=== PATIENT | male | born 1935 | race African-American/Black ===

== ENCOUNTER 2017-11-19 13:51 | Inpatient (IN) | payer MEDICARE ==
[~2017-11-19] VITALS: Ht 182.9 cm; Wt 72.6 kg
--- NOTE | 2017-11-19 13:49 | Emergency Room Report ---
History of Present Illness General Source: Patient, EMS, Caregiver Present Illness HPI Paramedics were called for supposedly back pain and weakness. When they evaluated him they noticed he had a hematoma on his right leg. When they tried to move him he had excruciating pain in his right hip and right leg area. The patient and family are unable to state what happened - only that he was ambulatory prior to being discharged from rehab facility yesterday. He required assistance to get into bed last night and has been unable to ambulate today. When asked, he says the pain is average, 3-4/10. Tenderness hip and upper leg. Not radiating. Patient has a history of hypertension and dementia. Denies CP, SOP, MORSE, NVD, dysuria. Not on blood thinners. No head trauma. 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 Reviewed Nursing Documentation: PMH: Agreed, PSxH: Agreed Review of Systems All Other Systems: negative except mentioned in HPI - however, demential makes answers questionable Physical Exam Vital Signs Date Time Temp Pulse Resp B/P (MAP) Pulse Ox O2 Delivery O2 Flow Rate FiO2 11/19/17 13:45 98.8 93 18 185/78 98 Room Air Sp02 EP Interpretation: reviewed, normal General Appearance: well appearing, no apparent distress, alert Head: normocephalic Eyes: bilateral eye normal inspection, bilateral eye PERRL ENT: moist mucus membranes Neck: supple Respiratory: chest non-tender, lungs clear, normal breath sounds Cardiovascular #1: regular rate, rhythm Cardiovascular #2: 2+ radial (R) Gastrointestinal: normal inspection, normal bowel sounds, non tender, no mass, non-distended, scaphoid Musculoskeletal: pelvis stable, tender - R hip with PROM Neurologic: alert, motor strength/tone normal, DTRs symmetric, sensory intact, speech normal, oriented - X1 Psychiatric: other - poor recent memory Skin: hematoma - R thigh Medical Decision Making Diagnostic Impression: Primary Impression: Closed right hip fracture Qualified Codes: S72.001A - Fracture of unspecified part of neck of right femur, initial encounter for closed fracture Additional Impressions: Protein calorie malnutrition Qualified Codes: E44.0 - Moderate protein-calorie malnutrition Dementia Qualified Codes: G30.9 - Alzheimer's disease, unspecified; F02.80 - Dementia in other diseases classified elsewhere without behavioral disturbance ER Course Patient presents with right leg pain. Differential includes contusion, hematoma , hip fracture, pelvic fracture amongst others. Evaluation will be with x-rays and labs. The patient will be treated with Toradol. Some difficulty as unable to get full history from patient. EKG no injury, R hip with fx. Labs with min elevated glucose. Improved pain with analgesia (0/10). Admit med Dr. Burger. He requested Dr. Young and he was contacted. Laboratory Tests Test 11/19/17 16:00 White Blood Count 7.1 K/UL (4.8-10.8) Red Blood Count 4.05 M/UL (4.70-6.10) L Hemoglobin 12.0 G/DL (14.2-18.0) L Hematocrit 38.1 % (42.0-52.0) L Mean Corpuscular Volume 94 FL (80-99) Mean Corpuscular Hemoglobin 29.5 PG (27.0-31.0) Mean Corpuscular Hemoglobin Concent 31.4 G/DL (32.0-36.0) L Red Cell Distribution Width 12.5 % (11.6-14.8) Platelet Count 320 K/UL (150-450) Mean Platelet Volume 4.9 FL (6.5-10.1) L Neutrophils (%) (Auto) 73.2 % (45.0-75.0) Lymphocytes (%) (Auto) 13.6 % (20.0-45.0) L Monocytes (%) (Auto) 10.5 % (1.0-10.0) H Eosinophils (%) (Auto) 1.7 % (0.0-3.0) Basophils (%) (Auto) 1.0 % (0.0-2.0) Prothrombin Time 10.8 SEC (9.30-11.50) Prothrombin Time INR 1.0 (0.9-1.1) PTT 30 SEC (23-33) Sodium Level 135 MMOL/L (136-145) L Potassium Level 4.6 MMOL/L (3.5-5.1) Chloride Level 101 MMOL/L (98-107) Carbon Dioxide Level 26 MMOL/L (21-32) Anion Gap 8 mmol/L (5-15) Blood Urea Nitrogen 18 mg/dL (7-18) Creatinine 1.0 MG/DL (0.55-1.30) Estimate Glomerular Filtration Rate mL/min (>60) Glucose Level 136 MG/DL (74-106) H Calcium Level 9.2 MG/DL (8.5-10.1) Total Bilirubin 0.4 MG/DL (0.2-1.0) Aspartate Amino Transferase (AST) 26 U/L (15-37) Alanine Aminotransferase (ALT) 37 U/L (12-78) Alkaline Phosphatase 107 U/L (46-116) Total Protein 7.4 G/DL (6.4-8.2) Albumin 2.4 G/DL (3.4-5.0) L Globulin 5.0 g/dL Albumin/Globulin Ratio 0.5 (1.0-2.7) L EKG Diagnostic Results Rate: normal Rhythm: NSR ST Segments: no acute changes Rhythm Strip Diag. Results EP Interpretation: yes Rhythm: NSR, no PVC's, no ectopy Chest X-Ray Diagnostic Results Chest X-Ray Diagnostic Results : Chest X-Ray Ordered: Yes # of Views/Limited/Complete: 1 View Indication: Other EP Interpretation: Yes Interpretation: no consolidation, no effusion, no pneumothorax, no acute cardiopulmonary disease Impression: No acute disease Electronically Signed by: Tomasz Christian MD Other X-Ray Diagnostic Results Other X-Ray Diagnostic Results #1: X-Ray ordered: pelvis # of Views/Limited Vs Complete: 1 View Indication: Pain EP Interpretation: Yes Interpretation: no soft tissue swelling, other - surg neck fx, ostoporosis Impression: Other Electronically Signed by: Ciara Christian MD Other X-Ray Diagnostic Results #2: X-Ray ordered: R femur # of Views/Limited Vs Complete: 4 View Indication: Pain EP Interpretation: Yes Interpretation: no dislocation, no soft tissue swelling, other - fx surgical neck - djd, Ca vessels Impression: Other Electronically Signed by: Tomasz Christian MD Last Vital Signs Date Time Temp Pulse Resp B/P (MAP) Pulse Ox O2 Delivery O2 Flow Rate FiO2 11/20/17 03:14 97.9 62 20 126/72 99 Room Air Status: improved Disposition: ADMITTED INPATIENT Condition: Serious Tomasz Christian M.D. Nov 19, 2017 13:49
[~2017-11-19 13:51] MED LIST: AMIODARONE HCL400 M1 ORAL; AMLODIPINE BES2.5 MG PO; ARICEPT5 MG PO; ASPIRIN81 M1 PO; ATORVASTATIN CA20 MG ORAL; CEPHALEXIN500 MG ORAL; CORDARONE200 M1 ORAL; COUMADIN2.5 MG ORAL; COUMADIN6 MG ORAL; COZAAR50 MG PO; DONEPEZIL HCL10 MG ORAL; FINASTERIDE5 MG PO; FLOMAX0.4 MG ORAL; FLOMAX0.4 MG PO; Ketorolac 30mg Inj IV ONE; LOSARTAN POTAS100 MG; LOSARTAN POTASS25 MG ORAL; METOPROLOL SUCC25 MG ORAL; METOPROLOL TART25 MG ORAL; METOPROLOL TART50 M1; METOPROLOL TART50 M1 ORAL; METOPROLOL TART50 MG ORAL; METOPROLOL TART50 MG PO; METOPROLOL5 MG/5 M1 IV; MIDODRINE HCL5 MG ORAL; NORVASC2.5 MG ORAL; PRO-AMATINE10 MG ORAL; PRO-AMATINE2.5 MG ORAL; PROSCAR5 MG ORAL; PROTONIX20 MG PO; QUETIAPINE FUMA25 MG PO; SIMVASTATIN20 MG; SIMVASTATIN20 MG PO; SIMVASTATIN5 MG ORAL; TAMSULOSIN HCL0.4 MG; TENORMIN25 MG PO; UNOBMED; WARFARIN SODIUM2 MG PO; WARFARIN SODIUM5 MG ORAL; ZOCOR20 M1 ORAL
--- NOTE | 2017-11-19 15:15 | Diagnostic Imaging Report ---
Indication: Dyspnea Comparison: 01/30/2017 A single view chest radiograph was obtained. Findings: Lungs are clear. There is a pacemaker on the left. Bones are osteopenic. Aorta is calcified and ectatic. IMPRESSION: No acute disease
--- NOTE | 2017-11-19 15:18 | Diagnostic Imaging Report ---
Indication: Pain Findings: 2 views of the right femur, right hip and AP pelvis were obtained. There is an acute slightly impacted fracture of the right femoral neck with superior displacement. Remainder of the right femur is intact. The bones are severely osteopenic. Single view of the left hip is grossly unremarkable. The sacrum is largely obscured by bowel gas and stool. Vascular calcifications are noted. IMPRESSION: Acute impacted intracapsular fracture of the right hip.
[2017-11-19 16:22] LABS: EOSINOPHILS % (AUTO) 1.7 % (0.0-3.0); HEMATOCRIT 38.1 % (42.0-52.0); LYMPHOCYTES % (AUTO) 13.6 % (20.0-45.0); MEAN CORPUSCULAR VOLUME 94 FL (80-99); MONOCYTES % (AUTO) 10.5 % (1.0-10.0); NEUTROPHILS % (AUTO) 73.2 % (45.0-75.0); PLATELET COUNT 320 K/UL (150-450); RED BLOOD COUNT 4.05 M/UL (4.70-6.10); RED CELL DISTRIBUTION WIDTH 12.5 % (11.6-14.8); WHITE BLOOD COUNT 7.1 K/UL (4.8-10.8)
[2017-11-19 16:37] LABS: ANION GAP 8 mmol/L (5-15); BLOOD UREA NITROGEN 18 mg/dL (7-18); CALCIUM 9.2 MG/DL (8.5-10.1); CARBON DIOXIDE 26 MMOL/L (21-32); CHLORIDE 101 MMOL/L (98-107); POTASSIUM 4.6 MMOL/L (3.5-5.1); SODIUM 135 MMOL/L (136-145)
[2017-11-19 16:42] LABS: ALANINE AMINOTRANSFERASE 37 U/L (12-78); ALBUMIN 2.4 G/DL (3.4-5.0); ALBUMIN/GLOBULIN RATIO 0.5 (1.0-2.7); ALKALINE PHOSPHATASE 107 U/L (46-116); ASPARTATE AMINO TRANSFERASE 26 U/L (15-37); BILIRUBIN,TOTAL 0.4 MG/DL (0.2-1.0)
[2017-11-19 18:40] VITALS: BP 120/66
[2017-11-19] MEDS: D5NS 1,000 ML IV SCH (19:10)
[2017-11-19 19:22] VITALS: BP 115/66
[2017-11-19] MEDS: Metoprolol 25mg tab ORAL SCH (20:48)
[2017-11-19] MEDS: Tamsulosin 0.4mg cap ORAL SCH (20:49)
[2017-11-19] MEDS: Heparin 5000 units/ml inj SUBQ SCH (20:49)
[2017-11-19] MEDS: Midodrine 10mg tab ORAL SCH (21:56)
[2017-11-19 23:16] VITALS: BP 121/64
[2017-11-20 03:14] VITALS: BP 126/72
[2017-11-20] MEDS: Midodrine 10mg tab ORAL SCH ×3 (05:34→22:04)
[2017-11-20 08:00] VITALS: BP 133/71
[2017-11-20] MEDS: D5NS 1,000 ML IV SCH ×2 (08:05→22:05)
--- NOTE | 2017-11-20 08:05 | Consultation ---
Consult Note Consult Note 82 yo pleasantly confused male, poor historian who we are seeing for rt hip femoral neck fracture hx gathered from chart. pt cannot accurately recall events leading to admission. per hx, pt released to care of family yesterday from a stay at a rehab center. While at home with family, he had been complaining of back pain. EMS was called and pt noted to have rt hip femoral neck fracture. per pt, no fall and no complaints of pain. He reports that he ambulates independently at baseline. PE: pt comfortable in bed but does have ecchymosis around rt hip and tenderness to palpation with shortened and rotated rt LE. Xray: Rt hip impacted and displaced femoral neck fracture Assessment/Plan 1. rt hip femoral neck fracture plan for rt hip celso arthroplasty tomorrow am. med clearance 2D echo NPO after midnight, can eat today full note dictated AMEND 12:23pm: Placed a call to pt's next of kin Matti Montanez ([phone]) and Melly Montanez ([phone]) and left messages for both. Gave both parties our office contact info ([phone]) to call back and discuss care. NAHEED DODD Nov 20, 2017 08:04
[2017-11-20] MEDS: Donepezil 10mg tab ORAL SCH (09:00)
[2017-11-20] MEDS: Amiodarone 200mg tab ORAL SCH (10:25)
[2017-11-20] MEDS: Metoprolol 25mg tab ORAL SCH ×2 (10:26→20:12)
[2017-11-20] MEDS: Heparin 5000 units/ml inj SUBQ SCH ×2 (10:38→20:54)
[2017-11-20 12:00] VITALS: BP 135/69
[2017-11-20] MEDS ORDERED: Flu Vaccine Quadrivalent 0.5ml IM ONE (13:00)
[2017-11-20] MEDS ORDERED: Morphine Sulfate 2mg/ml Inj IVP PRN (13:30)
--- NOTE | 2017-11-20 14:48 | Cardiology Report ---
APPROVED REPORT EXAM: Two-dimensional and M-mode echocardiogram with Doppler and color Doppler. INDICATION PRE-OP M-Mode DIMENSIONS Left Atrium (MM)2.6 (1.6-4.0cm) Aortic Cusp Exc.2.0 (1.5-2.0cm) Technically difficult study due to poorl acoustical windows and patient position. M-mode measurements of left ventricle not obtainable due to cardiac position (angle) Normal left ventricular size . Global left ventricular hypokinesis.EF estimated at 45-50%. Study quality precludes accurate assessment of regional wall motion. No evidence of left ventricular hypertrophy. No evidence of pericardial effusion All other cardiac chamber sizes are within normal limits. Focal aortic valve sclerosis with adequate cusp excursion. Thickened mitral valve leaflets with normal excursion. Mitral annulus and aortic root calcification. Pulmonic valve not well visualized. tricuspid valve structure not well visualized . IVC at normal size with physiologic collapse. Pacemaker wire present in the right side chambers. A color flow and spectral Doppler study was performed and revealed: No aortic regurgitation. Trace mitral regurgitation. Mitral diastolic velocities suggest reduced left ventricular relaxation c/w mild LV diastolic dysfunction (Grade I ). Trace tricuspid regurgitation. Tricuspid systolic velocities suggests peak right ventricular systolic pressure of 10 mmHg No Pulmonic regurgitation present
--- NOTE | 2017-11-20 15:16 | Anethesia Preoperative Eval ---
Anesthesia Pre-op PMH/ROS General Date of Evaluation: Nov 20, 2017 Time of Evaluation: 14:52 Anesthesiologist: Yves ASA Score: ASA 4 Mallampati Score Class I : Soft palate, uvula, fauces, pillars visible Class II: Soft palate, uvula, fauces visible Class III: Soft palate, base of uvula visible Class IV: Only hard plate visible Mallampati Classification: Class II Surgeon: Lizet Diagnosis: R Hip Pain Surgical Procedure: R Hip Hemiarthroplasty Anesthesia History: none Family History: no anesthesia problems Allergies: Coded Allergies: No Known Allergies (Unverified , 10/28/14) Medications: see eMAR Past Medical History Cardiovascular: Reports: HTN, CAD, IA, arrhythmia - Pacemaker Gastrointestinal/Genitourinary: Reports: other - Prostate CA Neurologic/Psychiatric: Reports: dementia - Alzheimers Musculoskeletal/Integumentary: Reports: other - Contractures Anesthesia Pre-op Phys. Exam Physician Exam Last Vital Signs Date Time Temp Pulse Resp B/P (MAP) Pulse Ox O2 Delivery O2 Flow Rate FiO2 11/20/17 12:00 97.5 68 20 135/69 99 11/20/17 03:14 Room Air Constitutional: NAD Neurologic: CN 2-12 intact Cardiovascular: RRR Respiratory: CTA Gastrointestinal: S/NT/ND Airway Exam Mallampati Score: Class II MO: limited ROM: limited Teeth: missing Anesthesia Pre-op A/P Labs Hematology Test 11/19/17 16:00 White Blood Count 7.1 K/UL (4.8-10.8) Red Blood Count 4.05 M/UL (4.70-6.10) L Hemoglobin 12.0 G/DL (14.2-18.0) L Hematocrit 38.1 % (42.0-52.0) L Mean Corpuscular Volume 94 FL (80-99) Mean Corpuscular Hemoglobin 29.5 PG (27.0-31.0) Mean Corpuscular Hemoglobin Concent 31.4 G/DL (32.0-36.0) L Red Cell Distribution Width 12.5 % (11.6-14.8) Platelet Count 320 K/UL (150-450) Mean Platelet Volume 4.9 FL (6.5-10.1) L Neutrophils (%) (Auto) 73.2 % (45.0-75.0) Lymphocytes (%) (Auto) 13.6 % (20.0-45.0) L Monocytes (%) (Auto) 10.5 % (1.0-10.0) H Eosinophils (%) (Auto) 1.7 % (0.0-3.0) Basophils (%) (Auto) 1.0 % (0.0-2.0) Coagulation Test 11/19/17 16:00 Prothrombin Time 10.8 SEC (9.30-11.50) Prothromb Time International Ratio 1.0 (0.9-1.1) Activated Partial Thromboplast Time 30 SEC (23-33) Chemistry Test 11/19/17 16:00 Sodium Level 135 MMOL/L (136-145) L Potassium Level 4.6 MMOL/L (3.5-5.1) Chloride Level 101 MMOL/L (98-107) Carbon Dioxide Level 26 MMOL/L (21-32) Anion Gap 8 mmol/L (5-15) Blood Urea Nitrogen 18 mg/dL (7-18) Creatinine 1.0 MG/DL (0.55-1.30) Estimat Glomerular Filtration Rate mL/min (>60) Glucose Level 136 MG/DL (74-106) H Calcium Level 9.2 MG/DL (8.5-10.1) Total Bilirubin 0.4 MG/DL (0.2-1.0) Aspartate Amino Transf (AST/SGOT) 26 U/L (15-37) Alanine Aminotransferase (ALT/SGPT) 37 U/L (12-78) Alkaline Phosphatase 107 U/L (46-116) Total Protein 7.4 G/DL (6.4-8.2) Albumin 2.4 G/DL (3.4-5.0) L Globulin 5.0 g/dL Albumin/Globulin Ratio 0.5 (1.0-2.7) L Risk Assessment & Plan Assessment: ASA 4 Plan: GA, Spinal, Lumbar Plexus Block Status Change Before Surgery: No Pre-Antibiotics Drug: Hemanth Kline MD Nov 20, 2017 15:16
[2017-11-20 15:49] VITALS: BP 132/67
--- NOTE | 2017-11-20 15:49 | Cardiology Report ---
APPROVED REPORT EKG Measurement Heart [id number] CO 124P19 [id number] Sinus rhythm with occasional premature ventricular complexes Nonspecific ST and T wave abnormality Abnormal ECG
--- NOTE | 2017-11-20 17:00 | Consultation ---
DATE OF CONSULTATION: 11/20/2017 ORTHOPEDIC CONSULTATION CONSULTING PHYSICIAN: Benjie Hinds M.D. REASON FOR CONSULTATION: Consult called for concern of right hip fracture. HISTORY: The patient is a pleasantly confused, 82-year-old gentleman who is a poor historian and unable to provide much in the way of an account of the details of his admission. Most of the history is gathered from the patient's chart. Per ER record, emergency services were called to the patient's home when he was home with family complaining of back pain. Apparently yesterday, he had just been discharged from the rehab center, was sent home with family. He had been complaining of back pain, therefore, emergency services were called and he was transferred to [facility] ER. Upon evaluation in the ER, he was noted to have a large hematoma and an area of ecchymosis around the right hip. Therefore, right hip and leg x-rays were obtained noting a right hip femoral neck fracture. Per discussion with the patient, he does not recall the events of yesterday. He adamantly notes that he did not fall and he does not have pain and he is unsure that he is even in the hospital today. He indicates to me that he lives alone at home and ambulates independently at baseline and was not recently in a rehab center, although again he is quite confused with regards to the details. PHYSICAL EXAMINATION: GENERAL: He is very pleasant. He is cooperative with the examination. He is answering questions, although very confused. EXTREMITIES: He does have area of ecchymosis around the right hip with tenderness upon palpation of the right hip, and shortened and rotated right lower extremity. He has reasonably intact pulses and he follows commands and is able to wiggle his toes. DIAGNOSTIC DATA: X-rays are reviewed of the leg, hip, and pelvis. There is a right femoral neck fracture, impacted and slightly displaced. IMPRESSION: Right hip femoral neck fracture. DISCUSSION: I did discuss with the patient my findings that he has a fracture in his right hip, of which he was surprised to hear. I did discuss with him my treatment recommendations and he did seem to verbalize understanding, but certainly surgical consent will have to be obtained from a family member. Recommended procedure is a right hip hemiarthroplasty to be performed tomorrow. The patient will require medical clearance including a 2D echo. Risks of this surgery would include nerve injury, vessel injury, risk of infection, bleeding, risk of fracture, hardware failure, leg length discrepancy, risk of dislocation, painful hardware, and need for revision surgery down the line. The patient will certainly benefit from inpatient rehab, physical therapy following the procedure. We will work on getting this set up and this was communicated to nursing staff. No family is currently at bedside to discuss; however, next of kin information is noted for Melly and Matti Montanez, and we will work to get in contact with them for discussion as well as surgical consent. Benjie Hinds M.D. Freda Avila DR: ELVIA JOB#: [id number] CC: RUBEN
--- NOTE | 2017-11-20 17:15 | History and Physical Report ---
DATE OF ADMISSION: 11/19/2017 CHIEF COMPLAINT: Right hip fracture. HISTORY OF PRESENT ILLNESS: The patient is a pleasant male with a history of dementia, orthostatic hypotension, conduction system disease, status post pacemaker. He was recently hospitalized, at a assisted facility. The patient was discharged from the assisted facility the day prior to admission. Family contacted me on the day of admission here stating that the patient was not doing well and that he was unable to walk or ambulate. I asked them they take him to the emergency room. On evaluation there, an x-ray of the hip showed a right hip fracture. According to the patient and the patient's family, they denied any recent falls. The case was discussed with the [facility] and no reports of any falls there. The patient does have dementia and is a poor historian. The patient denies any chest pain or shortness of breath. PAST MEDICAL HISTORY: As above. PAST SURGICAL HISTORY: Includes a pacemaker. CURRENT MEDICATIONS: Reconciled and reviewed. ALLERGIES: None. FAMILY HISTORY: None. SOCIAL HISTORY: Negative for tobacco, ethanol, or drugs. REVIEW OF SYSTEMS: GENERAL: No fever or chills. HEENT: No headaches or visual changes. CARDIOPULMONARY: No chest pain or shortness of breath. GASTROINTESTINAL: No nausea or vomiting. GENITOURINARY: No urgency or frequency. MUSCULOSKELETAL: No joint pain or swelling. NEUROLOGIC: No evidence of seizures. PHYSICAL EXAMINATION: VITAL SIGNS: Temperature 98, pulse 62, respirations 20, and blood pressure 126/72. GENERAL: The patient is a well-developed male, in no apparent distress. HEART: Regular rate and rhythm. LUNGS: Clear. ABDOMEN: Soft, nontender, and nondistended. EXTREMITIES: Without clubbing or cyanosis. The patient has limited range of motion due to pain in the right hip. LABORATORY DATA: White count 7, hemoglobin 12, hematocrit 38, and platelets of 320,000. Sodium 135, potassium 4.6, creatinine was 1. Coags were normal. Chest x-ray was clear. ASSESSMENT: This is a pleasant male, admitted with a right hip fracture. 1. Right hip fracture, suspect secondary to a fall possibly at home. 2. The patient has a history of orthostatic hypotension. 3. Dementia. 4. Pacemaker. PLAN: Orthopedic consultation for ORIF. Continue current pain regimen. Continue current cardiac regimen. IV hydration. We will keep the patient NPO. Dennis Burger M.D. DR: NOHEMI JOB#: [id number] CC:
[2017-11-20] MEDS: Tamsulosin 0.4mg cap ORAL SCH (20:12)
[2017-11-20 20:16] VITALS: BP 135/73
[2017-11-21] VITALS (16 sets, daily range): BP systolic 93–168; BP diastolic 37–88
[2017-11-21] MEDS ORDERED: cloNIDine 1000mcg/10ml inj ONE (05:58)
[2017-11-21] MEDS ORDERED: Bupivacaine 0.5% Inj 30 ml vial INJ ONE (05:58)
[2017-11-21] MEDS: Midodrine 10mg tab ORAL SCH ×3 (06:00→21:07)
[2017-11-21] MEDS ORDERED: LR 1000ml 1,000 ML IVLG SCH (06:13)
[2017-11-21] MEDS ORDERED: Hydromorphone 0.5mg/0.5ml inj IVP PRN (06:15)
[2017-11-21] MEDS ORDERED: LORazepam Inj 2mg/ml 1ml IV PRN (06:15)
[2017-11-21] MEDS ORDERED: Atropine Inj 1mg/10ml Syr IV PRN ×2 (06:15→06:45)
[2017-11-21] MEDS ORDERED: HYDROcodone/Acetamin 7.5/325 tab ORAL PRN (06:15)
[2017-11-21] MEDS ORDERED: oxyCODONE HCL/Acetaminophen 5/325mg ORAL PRN (06:15)
[2017-11-21] MEDS ORDERED: fentaNYL 100 mcg/2 mL IV PRN (06:15)
[2017-11-21] MEDS ORDERED: DiphenhydrAMINE 50mg/ml Inj IVP PRN (06:15)
[2017-11-21] MEDS ORDERED: Midazolam 2mg/2ml Inj IVP PRN (06:15)
[2017-11-21] MEDS ORDERED: Norco 5mg/325mg tab ORAL PRN (06:15)
[2017-11-21] MEDS ORDERED: Labetalol 5mg/ml 20ml vial IV PRN (06:15)
--- NOTE | 2017-11-21 06:21 | Immediate Post-Op Evaluation ---
Immediate Post-Op Evalulation Immediate Post-Op Evalulation Procedure: R Hip Hemiarthroplasty Date of Evaluation: Nov 21, 2017 Time of Evaluation: 08:50 IV Fluids: 1000 LR Blood Products: 0 Estimated Blood Loss: 25 Urinary Output: 200 Blood Pressure Systolic: 93 Blood Pressure Diastolic: 51 Pulse Rate: 61 Respiratory Rate: 16 O2 Sat by Pulse Oximetry: 100 Temperature (Fahrenheit): 97.7 Pain Score (1-10): 1 Nausea: No Vomiting: No Complications 0 Patient Status: awake, reacts, patent, none Hydration Status: adequate Dru Grams Ancef IV Given Within 1 Hr of Incision: Yes Time Given: 06:56 Hemanth Marinelli MD Nov 21, 2017 06:21
[2017-11-21] MEDS ORDERED: NeoSporin Gu Irrig 1ml Amp IRRIG ONE (06:32)
[2017-11-21] MEDS ORDERED: Bacitracin 50000 Units Vial ONE (06:32)
--- NOTE | 2017-11-21 06:37 | Pre-Procedure Note/Attestation ---
Pre-Procedure Note/Attestation Complete Prior to Procedure Planned Procedure: right Procedure Narrative: rt hip hemiarthroplasty Indications for Procedure Pre-Operative Diagnosis: rt hip femoral neck fracture Attestation I attest that I discussed the nature of the procedure; its benefits; risks and complications; and alternatives (and the risks and benefits of such alternatives ), prior to the procedure, with the patient (or the patient's legal wire rope sales representative). I attest that, if there was a reasonable possibility of needing a blood transfusion, the patient (or the patient's legal wire rope sales representative) was given the [facility] standardized written summary, pursuant to the [employer] [place] Blood Safety Act ([place] Health and Safety Code # 1645, as amended). I attest that I re-evaluated the patient just prior to the surgery and that there has been no change in the patient's H&P, except as documented below: NONE JOBY VASQUEZ Nov 21, 2017 06:37
[2017-11-21] MEDS ORDERED: D5 1/2NS w/KCl 20mEq 1,000 ML IV SCH (06:39)
[2017-11-21] MEDS ORDERED: Milk of Magnesia 30ml Ud ORAL PRN (06:45)
[2017-11-21] MEDS ORDERED: Acetaminophen (Non formulary) 100 ML IV ONE (07:00)
[2017-11-21] MEDS ORDERED: Midazolam 2mg/2ml Inj ONE (08:00)
[2017-11-21] MEDS ORDERED: Tranexamic Acid 1,000 MG in NS 65 ML IV ONE (08:00)
[2017-11-21] MEDS ORDERED: Lidocaine 1% Plain 30 ml INJ ONE (08:00)
[2017-11-21] MEDS ORDERED: Sterile Water Irrig 1000ml IRRIG ONE (08:00)
[2017-11-21] MEDS ORDERED: NS Irrig 1000ml ONE (08:00)
[2017-11-21] MEDS ORDERED: Alfentanil 2ml Inj ONE (08:00)
[2017-11-21] MEDS ORDERED: LR 1000ml ONE (08:00)
[2017-11-21] MEDS ORDERED: NS Irrig 2000ml IRRIG ONE (08:00)
--- NOTE | 2017-11-21 08:36 | Brief Operative Note ---
Immediate Post Operative Note Operative Note Chief Complaint: rt hip pain Pre-op Diagnosis: rt hip femoral neck fracture Procedure: rt hip hemiarthroplasty Post-op Diagnosis: same as pre-op Findings: consistent w/pre-op dx studies Surgeon: md allyssa Technology Education Teacher: larisa dial Anesthesiologist: md ortiz Anesthesia: general Specimen: yes Complications: none Condition: stable Fluids: ns Estimated Blood Loss: minimal Drains: none Implant(s) used?: Yes - NAHEED Lopez Nov 21, 2017 08:36
--- NOTE | 2017-11-21 08:52 | General Progress Note ---
Assessment/Plan Problem List: (1) Orthostatic syncope ICD Codes: I95.1 - Orthostatic syncope SNOMED: 074927726 (2) Closed right hip fracture ICD Codes: S72.001A - Fracture of unspecified part of neck of right femur, initial encounter for closed fracture SNOMED: 456903685 Qualifiers: Qualified Codes: S72.001A - Fracture of unspecified part of neck of right femur, initial encounter for closed fracture (3) Dementia ICD Codes: F03.90 - Unspecified dementia without behavioral disturbance SNOMED: [id number] Qualifiers: Qualified Codes: G30.9 - Alzheimer's disease, unspecified; F02.80 - Dementia in other diseases classified elsewhere without behavioral disturbance Status: stable, progressing Assessment/Plan stable for surgery Subjective ROS Limited/Unobtainable: No Constitutional: Reports: malaise, weakness HEENT: Reports: no symptoms Cardiovascular: Reports: no symptoms Respiratory: Reports: no symptoms Gastrointestinal/Abdominal: Reports: no symptoms Genitourinary: Reports: no symptoms Neurologic/Psychiatric: Reports: pre-existing deficit Endocrine: Reports: no symptoms Hematologic/Lymphatic: Reports: no symptoms Allergies: Coded Allergies: No Known Allergies (Unverified , 10/28/14) All Systems: reviewed and negative except above Subjective scheduled for hemiarthoplasty. no complaints. + pain in hip of moved. no cp/ sob. no palps Objective Last 24 Hour Vital Signs Date Time Temp Pulse Resp B/P (MAP) Pulse Ox O2 Delivery O2 Flow Rate FiO2 11/21/17 08:45 60 14 104/51 100 Simple Mask 6.0 11/21/17 08:39 97.3 60 14 93/47 100 Simple Mask 6.0 11/21/17 08:38 61 16 100 11/21/17 04:09 97.8 66 20 139/69 97 11/21/17 00:05 Room Air 11/21/17 00:04 97.8 62 20 124/61 97 11/20/17 20:16 Room Air 11/20/17 20:16 97.6 68 20 135/73 97 11/20/17 20:12 68 135/73 11/20/17 17:28 73 142/85 11/20/17 15:49 97.6 64 20 132/67 97 11/20/17 12:00 97.5 68 20 135/69 99 11/20/17 10:26 60 133/78 11/20/17 10:25 60 133/78 Intake and Output 11/20/17 11/21/17 19:00 07:00 Intake Total 675 ml 825 ml Balance 675 ml 825 ml Intake Oral 600 ml IV Total 75 ml 825 ml # Voids 4 3 # Bowel Movements 1 Height (Feet): 6 Height (Inches): 0.00 Weight (Pounds): 160 General Appearance: WD/WN, alert Neck: supple Cardiovascular: regular rhythm Respiratory/Chest: lungs clear Abdomen: normal bowel sounds, non tender, soft, no organomegaly Edema: no edema noted Arm (L), no edema noted Arm (R), no edema noted Leg (L), no edema noted Leg (R), no edema noted Pedal (L), no edema noted Pedal (R), no edema noted Generalized YOU ROMO Nov 21, 2017 08:52
[2017-11-21] MEDS: Donepezil 10mg tab ORAL SCH (10:05)
[2017-11-21] MEDS: celeBREX 200mg Cap **SURGERY PATIENTS ONLY ORAL SCH (10:05)
[2017-11-21] MEDS: Amiodarone 200mg tab ORAL SCH (10:05)
[2017-11-21] MEDS: Metoprolol 25mg tab ORAL SCH ×2 (10:05→21:07)
[2017-11-21] MEDS: Docusate 100mg cap ORAL SCH ×3 (10:05→17:03)
[2017-11-21] MEDS: Heparin 5000 units/ml inj SUBQ SCH (10:06)
[2017-11-21] MEDS ORDERED: HYDROmorphone 1mg/ml Carpuject SUBQ PRN (10:30)
--- NOTE | 2017-11-21 11:04 | Diagnostic Imaging Report ---
Indication: Status post total right hip replacement Findings: Single AP view of the pelvis was performed. Right bipolar hemiarthroplasty is now noted. Patient has had recent surgery with soft tissue air and distortion about the right hip noted. Alignment and position on the basis of this single projection is unremarkable. Taylor catheter noted. IMPRESSION: Status post right hip replacement
[2017-11-21] MEDS: D5 1/2NS w/KCl 20mEq 1,000 ML IV SCH ×2 (11:22→22:48)
--- NOTE | 2017-11-21 12:15 | Operative Note - Dictated ---
DATE OF OPERATION: 11/21/2017 PREOPERATIVE DIAGNOSIS: Right hip subcapital femoral neck fracture with displacement. POSTOPERATIVE DIAGNOSIS: Right hip subcapital femoral neck fracture with displacement. PROCEDURE: Right hip hemiarthroplasty using [place] system, size 9 mm Accolade femoral stem with 28-mm 0-mm-offset femoral head with 52-mm bipolar component. SURGEON: Benjie Hinds M.D. REVENUE INTEGRITY ANALYST: Maura Amanda PA-C. ANESTHESIOLOGIST: Hemanth Marinelli M.D. ANESTHESIA: Spinal anesthesia. ESTIMATED BLOOD LOSS: Less than 100 mL. COMPLICATIONS: None. BRIEF HISTORY: The patient is a pleasant 82-year-old gentleman who sustained a fall and had right-sided hip pain. Orthopedic consultation was obtained after x-rays in the ER showed subcapital femoral neck fracture. After full discussion of risks and benefits of the surgery with the next of kin and his son, including infection, bleeding, neurovascular complication, possibility of continued pain, possibility of continued need for further surgery, possibility of dislocation, leg length discrepancy, inability to walk, DVT, PE, and other complications that may arise, the patient and the family opted for surgical treatment and consent was obtained. OPERATIVE PROCEDURE: The patient was brought to the operating table and was placed supine. All pressure points were well padded. Spinal anesthesia was induced. The right hip was prepped and draped in usual sterile fashion. Standard posterolateral approach to the hip was undertaken. The incision was taken through the subcutaneous tissue and the gluteal fascia, and IT band were opened. The retractors were placed and short external rotators were released and capsule was T'd. The fracture could be visualized. At this point, the hip was internally rotated and the femoral head was removed using a threaded Steinmann pin. Once this was completed, the neck appeared to be long and a 5 mm neck cut was performed. This placed the cut approximately 1 cm above the lesser trochanter. Once this was completed, the acetabulum was inspected and there was no significant acetabular wear. There were no significant loose fragments. The acetabulum was washed out using Simpulse irrigation. At this point, care was given to the femoral component. Appropriate retractors were placed in and a canal finder was placed in and sequential broaching was performed all the way up to size 5 broach. This provided excellent axial and rotational stability. Once this was completed, a calcar reamer was used to ream the calcar and at this point, standard neck 28-mm head with a 52-mm bipolar component was assembled and with standard offset and was assembled back onto the broach. The entire construct was reduced and leg lengths were checked and appeared to be equal. Range of motion was checked and he had excellent 0, 30 degrees, 45 degrees, and 90 degrees of flexion with internal rotation up to 75 degrees with 90 degrees of flexion and neutral abduction. There was no evidence of instability or dislocation with internal rotation. At this point, external rotation was checked and appeared to be perfect. There was no evidence of instability. The wounds were thoroughly irrigated using copious amount of fluid. The trial components were then removed and the femur and acetabulum were washed out using Simpulse irrigation. At this point, a size 9-mm proximally coated Accolate stem was placed without any complication. A standard head length and bipolar component were placed in and the entire construct was then malleted back onto a dried Paredes taper. At this point, the entire construct was reduced without any complication. Range of motion and leg lengths were checked and stability was checked as described previously. There was excellent stability as described. At this point, the capsule was repaired back onto the greater trochanter through drill holes. The piriformis was repaired back. The tensor fascia was closed using #1 Vicryl suture, subcutaneous tissue was closed using 2-0 Vicryl suture, and the skin was closed using 3-0 Monocryl suture. Standard dressing was applied. The patient was placed in abduction pillow, was taken to recovery room in stable condition. All lap counts and instrument counts were correct. Benjie Hinds M.D. DR: Shaye JOB#: [id number] CC: RUBEN
[2017-11-21] MEDS ORDERED: ceFAZolin sod 2 GM in D5W 110 ML IV SCH (14:00)
[2017-11-21] MEDS: ceFAZolin 2gm/50ml Premix 50 ML IV SCH ×2 (15:15→21:53)
[2017-11-21] MEDS: Tamsulosin 0.4mg cap ORAL SCH (21:06)
[2017-11-21] MEDS: Enoxaparin 40mg Inj SUBQ SCH (21:09)
[2017-11-22 03:32] VITALS: BP 157/80
[2017-11-22] MEDS: Midodrine 10mg tab ORAL SCH ×3 (05:10→22:50)
[2017-11-22 07:58] LABS: BASOPHILS % (AUTO) 1.1 % (0.0-2.0); EOSINOPHILS % (AUTO) 1.1 % (0.0-3.0); HEMATOCRIT 31.4 % (42.0-52.0); HEMOGLOBIN 10.3 G/DL (14.2-18.0); LYMPHOCYTES % (AUTO) 11.2 % (20.0-45.0); MEAN CORPUSCULAR VOLUME 92 FL (80-99); MONOCYTES % (AUTO) 9.6 % (1.0-10.0); PLATELET COUNT 248 K/UL (150-450); RED BLOOD COUNT 3.42 M/UL (4.70-6.10); RED CELL DISTRIBUTION WIDTH 12.2 % (11.6-14.8); WHITE BLOOD COUNT 9.2 K/UL (4.8-10.8)
[2017-11-22 08:00] VITALS: BP 117/59
[2017-11-22 08:08] LABS: ANION GAP 7 mmol/L (5-15); BLOOD UREA NITROGEN 11 mg/dL (7-18); CALCIUM 8.4 MG/DL (8.5-10.1); CARBON DIOXIDE 24 MMOL/L (21-32); CHLORIDE 100 MMOL/L (98-107); CREATININE 0.8 MG/DL (0.55-1.30); POTASSIUM 4.2 MMOL/L (3.5-5.1); SODIUM 131 MMOL/L (136-145)
--- NOTE | 2017-11-22 08:21 | Orthopedic Progress Note ---
Orthopedic - Progress Note Subjective Additional Comments no complaints. Seen with nurse at bedside who indicates pt has been doing well. slightly febrile overnight, temp has come down Objective Vital Signs Laboratory Tests Test 11/22/17 04:15 White Blood Count 9.2 K/UL (4.8-10.8) Red Blood Count 3.42 M/UL (4.70-6.10) L Hemoglobin 10.3 G/DL (14.2-18.0) L Hematocrit 31.4 % (42.0-52.0) L Mean Corpuscular Volume 92 FL (80-99) Mean Corpuscular Hemoglobin 30.2 PG (27.0-31.0) Mean Corpuscular Hemoglobin Concent 32.8 G/DL (32.0-36.0) Red Cell Distribution Width 12.2 % (11.6-14.8) Platelet Count 248 K/UL (150-450) Mean Platelet Volume 5.6 FL (6.5-10.1) L Neutrophils (%) (Auto) 77.0 % (45.0-75.0) H Lymphocytes (%) (Auto) 11.2 % (20.0-45.0) L Monocytes (%) (Auto) 9.6 % (1.0-10.0) Eosinophils (%) (Auto) 1.1 % (0.0-3.0) Basophils (%) (Auto) 1.1 % (0.0-2.0) Sodium Level 131 MMOL/L (136-145) L Potassium Level 4.2 MMOL/L (3.5-5.1) Chloride Level 100 MMOL/L (98-107) Carbon Dioxide Level 24 MMOL/L (21-32) Anion Gap 7 mmol/L (5-15) Blood Urea Nitrogen 11 mg/dL (7-18) Creatinine 0.8 MG/DL (0.55-1.30) Estimat Glomerular Filtration Rate mL/min (>60) Glucose Level 98 MG/DL (74-106) Calcium Level 8.4 MG/DL (8.5-10.1) L Last 24 Hour Vital Signs Date Time Temp Pulse Resp B/P (MAP) Pulse Ox O2 Delivery O2 Flow Rate FiO2 11/22/17 03:32 98.8 64 19 157/80 97 11/21/17 23:41 98.6 68 17 103/55 11/21/17 21:07 97 158/88 11/21/17 20:30 98.8 97 19 151/88 97 11/21/17 19:28 98.8 11/21/17 18:28 168/80 11/21/17 18:15 100.9 96 168/80 11/21/17 17:03 91 164/84 11/21/17 16:11 99.0 91 19 164/84 100 Nasal Cannula 2.0 11/21/17 11:48 97.1 61 20 107/47 98 11/21/17 10:06 60 107/41 11/21/17 10:05 60 107/41 11/21/17 09:50 97.0 60 17 107/41 100 Nasal Cannula 3.0 11/21/17 09:40 60 16 109/42 100 Nasal Cannula 3.0 11/21/17 09:30 60 14 103/37 100 Nasal Cannula 3.0 11/21/17 09:20 59 15 113/45 100 Nasal Cannula 3.0 11/21/17 09:10 60 16 107/40 100 Nasal Cannula 3.0 11/21/17 09:00 65 18 108/56 98 Nasal Cannula 3.0 11/21/17 08:50 60 16 106/56 100 Simple Mask 6.0 11/21/17 08:45 60 14 104/51 100 Simple Mask 6.0 11/21/17 08:39 97.3 60 14 93/47 100 Simple Mask 6.0 11/21/17 08:38 61 16 100 I&O Intake and Output 11/21/17 11/22/17 19:00 07:00 Intake Total 2085 ml 975 ml Output Total 845 ml 450 ml Balance 1240 ml 525 ml Intake Oral 360 ml IV Total 1725 ml 975 ml Output Urine Total 825 ml 450 ml Estimated Blood Loss 20 ml Wound: clean, dry, intact Drains: none Neuro Status: normal Vascular Status: normal Additional Comments Xray reviewed Assessment Post-op Diagnosis POD 1 Procedure Performed rt hip hemiarthroplasty Plan Plan: PT - WBAT. abduction pillow while in bed, discharge plan - Will need rehab on d/c. f/u Dr. Hinds 2 weeks from d/c, other - follow H&H tomorrow NAHEED DODD Nov 22, 2017 08:21
[2017-11-22] MEDS: Docusate 100mg cap ORAL SCH ×3 (08:30→17:29)
[2017-11-22] MEDS: Donepezil 10mg tab ORAL SCH (08:30)
[2017-11-22] MEDS: Amiodarone 200mg tab ORAL SCH (08:31)
[2017-11-22] MEDS: celeBREX 200mg Cap **SURGERY PATIENTS ONLY ORAL SCH (08:31)
[2017-11-22] MEDS: Metoprolol 25mg tab ORAL SCH ×2 (08:37→20:30)
--- NOTE | 2017-11-22 09:13 | General Progress Note ---
Assessment/Plan Problem List: (1) Orthostatic syncope ICD Codes: I95.1 - Orthostatic syncope SNOMED: 181421554 (2) Closed right hip fracture ICD Codes: S72.001A - Fracture of unspecified part of neck of right femur, initial encounter for closed fracture SNOMED: 759429197 Qualifiers: Qualified Codes: S72.001A - Fracture of unspecified part of neck of right femur, initial encounter for closed fracture (3) Dementia ICD Codes: F03.90 - Unspecified dementia without behavioral disturbance SNOMED: 35241820 Qualifiers: Qualified Codes: G30.9 - Alzheimer's disease, unspecified; F02.80 - Dementia in other diseases classified elsewhere without behavioral disturbance Status: stable Assessment/Plan stable s/p hemiarthroplasty. pain rx dvt prophylaxis will need snf Subjective ROS Limited/Unobtainable: No Constitutional: Reports: malaise, weakness HEENT: Reports: no symptoms Cardiovascular: Reports: no symptoms Respiratory: Reports: no symptoms Gastrointestinal/Abdominal: Reports: no symptoms Genitourinary: Reports: no symptoms Neurologic/Psychiatric: Reports: no symptoms Endocrine: Reports: no symptoms Hematologic/Lymphatic: Reports: no symptoms Allergies: Coded Allergies: No Known Allergies (Unverified , 10/28/14) All Systems: reviewed and negative except above Subjective s/p hemiarthropast. denies co/sob. Objective Last 24 Hour Vital Signs Date Time Temp Pulse Resp B/P (MAP) Pulse Ox O2 Delivery O2 Flow Rate FiO2 11/22/17 08:37 77 117/59 11/22/17 08:31 77 117/59 11/22/17 08:00 98.6 77 20 117/59 98 Room Air 11/22/17 03:32 98.8 64 19 157/80 97 11/21/17 23:41 98.6 68 17 103/55 11/21/17 21:07 97 158/88 11/21/17 20:30 98.8 97 19 151/88 97 11/21/17 19:28 98.8 11/21/17 18:28 168/80 11/21/17 18:15 100.9 96 168/80 11/21/17 17:03 91 164/84 11/21/17 16:11 99.0 91 19 164/84 100 Nasal Cannula 2.0 11/21/17 11:48 97.1 61 20 107/47 98 11/21/17 10:06 60 107/41 11/21/17 10:05 60 107/41 11/21/17 09:50 97.0 60 17 107/41 100 Nasal Cannula 3.0 11/21/17 09:40 60 16 109/42 100 Nasal Cannula 3.0 11/21/17 09:30 60 14 103/37 100 Nasal Cannula 3.0 11/21/17 09:20 59 15 113/45 100 Nasal Cannula 3.0 Intake and Output 11/21/17 11/22/17 19:00 07:00 Intake Total 2085 ml 975 ml Output Total 845 ml 450 ml Balance 1240 ml 525 ml Intake Oral 360 ml IV Total 1725 ml 975 ml Output Urine Total 825 ml 450 ml Estimated Blood Loss 20 ml Laboratory Tests 11/22/17 04:15: White Blood Count 9.2, Red Blood Count 3.42L, Hemoglobin 10.3L, Hematocrit 31.4L , Mean Corpuscular Volume 92, Mean Corpuscular Hemoglobin 30.2, Mean Corpuscular Hemoglobin Concent 32.8, Red Cell Distribution Width 12.2, Platelet Count 248, Mean Platelet Volume 5.6L, Neutrophils (%) (Auto) 77.0H, Lymphocytes (%) (Auto) 11.2L, Monocytes (%) (Auto) 9.6, Eosinophils (%) (Auto) 1.1, Basophils (%) (Auto) 1.1, Sodium Level 131L, Potassium Level 4.2, Chloride Level 100, Carbon Dioxide Level 24, Anion Gap 7, Blood Urea Nitrogen 11, Creatinine 0.8, Estimat Glomerular Filtration Rate , Glucose Level 98, Calcium Level 8.4L Height (Feet): 6 Height (Inches): 0.00 Weight (Pounds): 160 Objective General Appearance: WD/WN, alert Neck: supple Cardiovascular: regular rhythm Respiratory/Chest: lungs clear Abdomen: normal bowel sounds, non tender, soft, no organomegaly Edema: no edema noted Arm (L), no edema noted Arm (R), no edema noted Leg (L), no edema noted Leg (R), no edema noted Pedal (L), no edema noted Pedal (R), no edema noted Generalized YOU ROMO Nov 22, 2017 09:13
--- NOTE | 2017-11-22 09:20 | Wound Care Consultation ---
Wound Assessment Wound Assessment #1: Wound Number: 1 Wound Present on Admission: Yes New Wound: No Status Change of Wound: No Wound Location Body Site Modif: upper Wound Location Body Site: sacral Wound Type: pressure ulcer Aliza Test: Does not Aliza Pressure Ulcer Stage: Deep Tissue Injury Wound Thickness: Full Thickness Wound Length: 4.5 Wound Width: 6.5 Wound Depth: utd Percent of Wound [place]/Red: 100 - deep Wound Drainage Amount: None Wound Drainage Odor: None/Absent Tissue Surrounding Wound: Erythemic Wound General Appearance: Reddened - deep Wound Assessment #2: Wound Number: 2 Wound Present on Admission: Yes New Wound: No Status Change of Wound: No Wound Location Body Site Modif: mid Wound Location Body Site: coccyx Wound Type: pressure ulcer Aliza Test: Does not Aliza Pressure Ulcer Stage: Deep Tissue Injury Wound Thickness: Full Thickness Wound Length: 4.0 Wound Width: 5.5 Wound Depth: utd Percent of Wound Purple/Maroon: 100 Wound Drainage Amount: None Wound Drainage Odor: None/Absent Tissue Surrounding Wound: Erythemic Wound General Appearance: Reddened - purple Wound Assessment #3: Wound Number: 3 Wound Present on Admission: Yes New Wound: No Status Change of Wound: No Wound Location Body Site Modif: left Wound Location Body Site: shoulder Wound Type: pressure ulcer Aliza Test: Does not Aliza Wound Thickness: Full Thickness - scar tissue Wound Length: 3.0 Wound Width: 1.5 Wound Depth: utd Percent of Wound [place]/Red: 100 Wound Drainage Amount: None Wound Drainage Odor: None/Absent Tissue Surrounding Wound: Intact Wound General Appearance: Asymptomatic, Reddened Wound Comment #1 Upper left and right sacral area SDTI pressure ulcer #2 Coccygeal area DTI pressure ulcer #3 Left shoulder full thickness scar tissue Recommendation -Keep clean and dry -Turn and reposition -Local wound care per protocol -Offload both heels -Heel protector on both heels -Low air loss mattress -Optimize nutrition -Assess and f/u accordingly for any changes BIRGIT DUEÑAS RN Nov 22, 2017 09:19
--- NOTE | 2017-11-22 10:07 | 48 Hour Post Anesthesia Eval ---
Post Anesthesia Evaluation Procedure: R Hip Hemiarthroplasty Date of Evaluation: Nov 22, 2017 Time of Evaluation: 06:30 Blood Pressure Systolic: 157 0: 80 Pulse Rate: 64 Respiratory Rate: 19 Temperature (Fahrenheit): 98.8 O2 Sat by Pulse Oximetry: 97 Airway: patent Nausea: No Vomiting: No Pain Intensity: 1 Hydration Status: adequate Cardiopulmonary Status: at baseline Mental Status/LOC: patient returned to baseline Post-Anesthesia Complications: 0 Follow-up care needed: N/A - further care as per primary team ANURADHA ARREOLA M.D. Nov 22, 2017 10:07
[2017-11-22 12:00] VITALS: BP 118/56
[2017-11-22] MEDS: D5 1/2NS w/KCl 20mEq 1,000 ML IV SCH (13:46)
[2017-11-22 16:23] VITALS: BP 111/52
[2017-11-22 19:12] VITALS: BP 131/64
[2017-11-22] MEDS: Tamsulosin 0.4mg cap ORAL SCH (20:29)
[2017-11-22] MEDS: Enoxaparin 40mg Inj SUBQ SCH (20:31)
[2017-11-22 23:21] VITALS: BP 126/43
[2017-11-23] MEDS: D5 1/2NS w/KCl 20mEq 1,000 ML IV SCH (01:04)
[2017-11-23 03:47] VITALS: BP 145/59
[2017-11-23] MEDS: Midodrine 10mg tab ORAL SCH ×3 (05:10→22:07)
[2017-11-23 08:00] VITALS: BP 125/76
[2017-11-23 08:23] LABS: BASOPHILS % (AUTO) 0.7 % (0.0-2.0); EOSINOPHILS % (AUTO) 2.6 % (0.0-3.0); HEMATOCRIT 35.2 % (42.0-52.0); HEMOGLOBIN 11.3 G/DL (14.2-18.0); LYMPHOCYTES % (AUTO) 9.8 % (20.0-45.0); MEAN CORPUSCULAR VOLUME 92 FL (80-99); MONOCYTES % (AUTO) 11.9 % (1.0-10.0); NEUTROPHILS % (AUTO) 75.1 % (45.0-75.0); PLATELET COUNT 274 K/UL (150-450); RED BLOOD COUNT 3.81 M/UL (4.70-6.10); RED CELL DISTRIBUTION WIDTH 12.5 % (11.6-14.8)
[2017-11-23] MEDS: Docusate 100mg cap ORAL SCH ×3 (10:18→17:09)
[2017-11-23] MEDS: celeBREX 200mg Cap **SURGERY PATIENTS ONLY ORAL SCH (10:18)
[2017-11-23] MEDS: Amiodarone 200mg tab ORAL SCH (10:18)
[2017-11-23] MEDS: Metoprolol 25mg tab ORAL SCH ×2 (10:18→22:07)
[2017-11-23] MEDS: Donepezil 10mg tab ORAL SCH (10:18)
[2017-11-23 12:00] VITALS: BP 143/78
--- NOTE | 2017-11-23 12:10 | General Progress Note ---
Assessment/Plan Problem List: (1) Orthostatic syncope ICD Codes: I95.1 - Orthostatic syncope SNOMED: 527585088 (2) Closed right hip fracture ICD Codes: S72.001A - Fracture of unspecified part of neck of right femur, initial encounter for closed fracture SNOMED: 690253338 Qualifiers: Qualified Codes: S72.001A - Fracture of unspecified part of neck of right femur, initial encounter for closed fracture (3) Dementia ICD Codes: F03.90 - Unspecified dementia without behavioral disturbance SNOMED: 57840070 Qualifiers: Qualified Codes: G30.9 - Alzheimer's disease, unspecified; F02.80 - Dementia in other diseases classified elsewhere without behavioral disturbance Status: stable, progressing Assessment/Plan stable s/p hemiarthroplasty. pain rx dvt prophylaxis will need snf dc ivf Subjective ROS Limited/Unobtainable: Yes Constitutional: Reports: malaise, weakness HEENT: Reports: no symptoms Cardiovascular: Reports: no symptoms Respiratory: Reports: no symptoms Gastrointestinal/Abdominal: Reports: no symptoms Genitourinary: Reports: no symptoms Neurologic/Psychiatric: Reports: pre-existing deficit Endocrine: Reports: no symptoms Hematologic/Lymphatic: Reports: no symptoms Allergies: Coded Allergies: No Known Allergies (Unverified , 10/28/14) All Systems: reviewed and negative except above Subjective s/p hemiarthropast. denies co/sob. Objective Last 24 Hour Vital Signs Date Time Temp Pulse Resp B/P (MAP) Pulse Ox O2 Delivery O2 Flow Rate FiO2 11/23/17 10:22 75 125/76 11/23/17 10:18 75 125/76 11/23/17 08:00 97.3 75 20 125/76 94 11/23/17 03:47 97.0 65 20 145/59 99 Room Air 11/22/17 23:21 97.7 67 20 126/43 97 Room Air 11/22/17 20:30 77 131/64 11/22/17 19:12 97.7 78 20 131/64 98 Room Air 11/22/17 17:29 77 111/52 11/22/17 16:23 97.5 77 20 111/52 98 Intake and Output 11/22/17 11/23/17 19:00 07:00 Intake Total 1155 ml 825 ml Output Total 1 ml Balance 1155 ml 824 ml Intake Oral 480 ml IV Total 675 ml 825 ml Output Urine Total 1 ml # Voids 3 3 # Bowel Movements 2 Laboratory Tests 11/23/17 06:55: White Blood Count 10.0, Red Blood Count 3.81L, Hemoglobin 11.3L, Hematocrit 35.2L, Mean Corpuscular Volume 92, Mean Corpuscular Hemoglobin 29.6, Mean Corpuscular Hemoglobin Concent 32.1, Red Cell Distribution Width 12.5, Platelet Count 274, Mean Platelet Volume 5.7L, Neutrophils (%) (Auto) 75.1H, Lymphocytes (%) (Auto) 9.8L, Monocytes (%) (Auto) 11.9H, Eosinophils (%) (Auto) 2.6, Basophils (%) (Auto) 0.7 Height (Feet): 6 Height (Inches): 0.00 Weight (Pounds): 160 Objective General Appearance: WD/WN, alert Neck: supple Cardiovascular: regular rhythm Respiratory/Chest: lungs clear Abdomen: normal bowel sounds, non tender, soft, no organomegaly Edema: no edema noted Arm (L), no edema noted Arm (R), no edema noted Leg (L), no edema noted Leg (R), no edema noted Pedal (L), no edema noted Pedal (R), no edema noted Generalized YOU ROMO Nov 23, 2017 12:10
[2017-11-23 16:00] VITALS: BP 136/70
[2017-11-23 20:00] VITALS: BP 139/63
[2017-11-23] MEDS: Tamsulosin 0.4mg cap ORAL SCH (22:07)
[2017-11-23] MEDS: Enoxaparin 40mg Inj SUBQ SCH (22:17)
[2017-11-24] VITALS: BP 141/70
[2017-11-24 04:00] VITALS: BP_SYST 141; BP_SYST 145; BP_DIAS 70; BP_DIAS 80
[2017-11-24] MEDS: Midodrine 10mg tab ORAL SCH ×3 (06:02→20:53)
[2017-11-24 07:13] LABS: BASOPHILS % (AUTO) 0.9 % (0.0-2.0); EOSINOPHILS % (AUTO) 3.4 % (0.0-3.0); HEMOGLOBIN 11.4 G/DL (14.2-18.0); LYMPHOCYTES % (AUTO) 14.2 % (20.0-45.0); MEAN CORPUSCULAR VOLUME 92 FL (80-99); MONOCYTES % (AUTO) 9.8 % (1.0-10.0); NEUTROPHILS % (AUTO) 71.7 % (45.0-75.0); PLATELET COUNT 272 K/UL (150-450); RED BLOOD COUNT 3.81 M/UL (4.70-6.10); RED CELL DISTRIBUTION WIDTH 12.6 % (11.6-14.8); WHITE BLOOD COUNT 7.7 K/UL (4.8-10.8)
[2017-11-24 08:00] VITALS: BP 147/79
--- NOTE | 2017-11-24 08:08 | General Progress Note ---
Assessment/Plan Problem List: (1) Orthostatic syncope ICD Codes: I95.1 - Orthostatic syncope SNOMED: 861498858 (2) Closed right hip fracture ICD Codes: S72.001A - Fracture of unspecified part of neck of right femur, initial encounter for closed fracture SNOMED: 765316440 Qualifiers: Qualified Codes: S72.001A - Fracture of unspecified part of neck of right femur, initial encounter for closed fracture (3) Dementia ICD Codes: F03.90 - Unspecified dementia without behavioral disturbance SNOMED: 95293312 Qualifiers: Qualified Codes: G30.9 - Alzheimer's disease, unspecified; F02.80 - Dementia in other diseases classified elsewhere without behavioral disturbance Assessment/Plan stable s/p hemiarthroplasty. pain rx dvt prophylaxis will need snf. await confirmation of placement dc ivf Subjective ROS Limited/Unobtainable: No Constitutional: Reports: malaise, weakness HEENT: Reports: no symptoms Cardiovascular: Reports: no symptoms Respiratory: Reports: no symptoms Gastrointestinal/Abdominal: Reports: no symptoms Genitourinary: Reports: no symptoms Neurologic/Psychiatric: Reports: pre-existing deficit Endocrine: Reports: no symptoms Hematologic/Lymphatic: Reports: no symptoms Allergies: Coded Allergies: No Known Allergies (Unverified , 10/28/14) All Systems: reviewed and negative except above Subjective s/p hemiarthropast. denies co/sob. Objective Last 24 Hour Vital Signs Date Time Temp Pulse Resp B/P (MAP) Pulse Ox O2 Delivery O2 Flow Rate FiO2 11/24/17 04:00 97.9 67 18 145/80 100 11/24/17 04:00 Room Air 11/24/17 00:00 97.2 72 20 141/70 100 11/24/17 00:00 Room Air 11/23/17 22:07 72 139/63 11/23/17 20:00 Room Air 11/23/17 20:00 96.3 72 18 139/63 98 Room Air 11/23/17 17:10 68 136/70 11/23/17 16:00 97.7 68 20 136/70 96 11/23/17 12:00 97.5 66 20 143/78 98 11/23/17 10:22 75 125/76 11/23/17 10:18 75 125/76 Intake and Output 11/23/17 11/24/17 19:00 07:00 Intake Total 570 ml 240 ml Balance 570 ml 240 ml Intake Oral 570 ml 240 ml # Voids 3 3 # Bowel Movements 2 Laboratory Tests 11/24/17 04:40: White Blood Count 7.7, Red Blood Count 3.81L, Hemoglobin 11.4L, Hematocrit 35.0L , Mean Corpuscular Volume 92, Mean Corpuscular Hemoglobin 30.0, Mean Corpuscular Hemoglobin Concent 32.7, Red Cell Distribution Width 12.6, Platelet Count 272, Mean Platelet Volume 5.6L, Neutrophils (%) (Auto) 71.7, Lymphocytes ( %) (Auto) 14.2L, Monocytes (%) (Auto) 9.8, Eosinophils (%) (Auto) 3.4H, Basophils (%) (Auto) 0.9 Height (Feet): 6 Height (Inches): 0.00 Weight (Pounds): 160 Objective General Appearance: WD/WN, alert Neck: supple Cardiovascular: regular rhythm Respiratory/Chest: lungs clear Abdomen: normal bowel sounds, non tender, soft, no organomegaly Edema: no edema noted Arm (L), no edema noted Arm (R), no edema noted Leg (L), no edema noted Leg (R), no edema noted Pedal (L), no edema noted Pedal (R), no edema noted Generalized YOU ROMO Nov 24, 2017 08:08
[2017-11-24] MEDS: Docusate 100mg cap ORAL SCH ×3 (08:46→17:51)
[2017-11-24] MEDS: Metoprolol 25mg tab ORAL SCH ×2 (08:47→20:53)
[2017-11-24] MEDS: Amiodarone 200mg tab ORAL SCH (08:47)
[2017-11-24] MEDS: Donepezil 10mg tab ORAL SCH (08:48)
[2017-11-24] MEDS: celeBREX 200mg Cap **SURGERY PATIENTS ONLY ORAL SCH (08:48)
[2017-11-24 12:00] VITALS: BP 145/77
[2017-11-24] MEDS: HYDROcodone/Acetamin 7.5/325 tab ORAL PRN (15:03)
[2017-11-24] MEDS ORDERED: LOVENOX10 M4 SUBQ (15:18)
[2017-11-24 16:00] VITALS: BP 143/73
[2017-11-24 20:00] VITALS: BP 150/76
[2017-11-24] MEDS: Tamsulosin 0.4mg cap ORAL SCH (20:53)
[2017-11-24] MEDS: Enoxaparin 40mg Inj SUBQ SCH (21:01)
[2017-11-25] VITALS (7 sets, daily range): BP systolic 130–158; BP diastolic 65–74
[2017-11-25] MEDS: Midodrine 10mg tab ORAL SCH ×3 (05:49→21:40)
[2017-11-25 07:35] LABS: BASOPHILS % (AUTO) 0.7 % (0.0-2.0); HEMATOCRIT 33.5 % (42.0-52.0); HEMOGLOBIN 10.9 G/DL (14.2-18.0); LYMPHOCYTES % (AUTO) 19.9 % (20.0-45.0); MEAN CORPUSCULAR VOLUME 92 FL (80-99); MONOCYTES % (AUTO) 11.6 % (1.0-10.0); NEUTROPHILS % (AUTO) 63.9 % (45.0-75.0); PLATELET COUNT 293 K/UL (150-450); RED BLOOD COUNT 3.64 M/UL (4.70-6.10); RED CELL DISTRIBUTION WIDTH 12.7 % (11.6-14.8); WHITE BLOOD COUNT 5.9 K/UL (4.8-10.8)
[2017-11-25] MEDS: Docusate 100mg cap ORAL SCH ×3 (09:21→17:50)
[2017-11-25] MEDS: Donepezil 10mg tab ORAL SCH (09:21)
[2017-11-25] MEDS: Metoprolol 25mg tab ORAL SCH ×2 (09:21→21:00)
[2017-11-25] MEDS: celeBREX 200mg Cap **SURGERY PATIENTS ONLY ORAL SCH (09:21)
[2017-11-25] MEDS: Amiodarone 200mg tab ORAL SCH (09:22)
--- NOTE | 2017-11-25 09:39 | Diagnostic Imaging Report ---
Indication: Pain Technique: XRAY Hip Routine 2v+ L Comparison: 11/21/2017 Findings: Bones are diffusely demineralized. There is no acute fracture. Degenerative changes of the left hip with joint space narrowing and marginal osteophyte formation. Right hip arthroplasty is again noted. IVC filter partially visualized. Degenerative change of the lumbar lower spine artifactually visualized. Atherosclerotic vascular calcifications noted. IMPRESSION: Osteopenia. No definite/displaced acute fracture. Mild degenerative change of the left hip. This corresponds with the [facility] preliminary report.
--- NOTE | 2017-11-25 15:20 | General Progress Note ---
Assessment/Plan Problem List: (1) Orthostatic syncope ICD Codes: I95.1 - Orthostatic syncope SNOMED: 151498015 (2) Closed right hip fracture ICD Codes: S72.001A - Fracture of unspecified part of neck of right femur, initial encounter for closed fracture SNOMED: 854750958 Qualifiers: Qualified Codes: S72.001A - Fracture of unspecified part of neck of right femur, initial encounter for closed fracture (3) Dementia ICD Codes: F03.90 - Unspecified dementia without behavioral disturbance SNOMED: 71666349 Qualifiers: Qualified Codes: G30.9 - Alzheimer's disease, unspecified; F02.80 - Dementia in other diseases classified elsewhere without behavioral disturbance Status: stable, progressing Assessment/Plan stable s/p hemiarthroplasty. pain rx dvt prophylaxis will need snf or aru. await confirmation of placement dc ivf Subjective ROS Limited/Unobtainable: No Constitutional: Reports: malaise, weakness HEENT: Reports: no symptoms Cardiovascular: Reports: no symptoms Respiratory: Reports: no symptoms Gastrointestinal/Abdominal: Reports: no symptoms Genitourinary: Reports: no symptoms Neurologic/Psychiatric: Reports: pre-existing deficit Endocrine: Reports: no symptoms Hematologic/Lymphatic: Reports: no symptoms Allergies: Coded Allergies: No Known Allergies (Unverified , 10/28/14) All Systems: reviewed and negative except above Subjective s/p hemiarthropast. denies co/sob. Objective Last 24 Hour Vital Signs Date Time Temp Pulse Resp B/P (MAP) Pulse Ox O2 Delivery O2 Flow Rate FiO2 11/25/17 11:53 97.6 68 20 132/65 98 11/25/17 09:22 65 133/68 11/25/17 09:21 65 133/68 11/25/17 08:22 98.2 65 20 133/68 98 11/25/17 04:00 98.6 67 18 143/73 100 Room Air 11/25/17 00:00 97.7 60 19 130/70 99 Room Air 11/24/17 20:53 63 150/76 11/24/17 20:00 97.9 63 20 150/76 97 18 20:00 Room Air 11/24/17 17:51 60 143/73 11/24/17 16:00 97.3 60 18 143/73 100 Room Air Intake and Output 11/24/17 11/25/17 19:00 07:00 Intake Total 120 ml Balance 120 ml Intake Oral 120 ml # Voids 2 2 # Bowel Movements 1 Laboratory Tests 11/25/17 04:30: White Blood Count 5.9, Red Blood Count 3.64L, Hemoglobin 10.9L, Hematocrit 33.5L , Mean Corpuscular Volume 92, Mean Corpuscular Hemoglobin 29.8, Mean Corpuscular Hemoglobin Concent 32.4, Red Cell Distribution Width 12.7, Platelet Count 293, Mean Platelet Volume 5.7L, Neutrophils (%) (Auto) 63.9, Lymphocytes ( %) (Auto) 19.9L, Monocytes (%) (Auto) 11.6H, Eosinophils (%) (Auto) 4.0H, Basophils (%) (Auto) 0.7 Height (Feet): 6 Height (Inches): 0.00 Weight (Pounds): 160 Objective General Appearance: WD/WN, alert Neck: supple Cardiovascular: regular rhythm Respiratory/Chest: lungs clear Abdomen: normal bowel sounds, non tender, soft, no organomegaly Edema: no edema noted Arm (L), no edema noted Arm (R), no edema noted Leg (L), no edema noted Leg (R), no edema noted Pedal (L), no edema noted Pedal (R), no edema noted Generalized YOU ROMO Nov 25, 2017 15:20
[2017-11-25] MEDS ORDERED: Tubing IV Secondary IV ONE (17:09)
[2017-11-25] MEDS ORDERED: D5NS 1000ml IV ONE (17:11)
[2017-11-25] MEDS: Enoxaparin 40mg Inj SUBQ SCH (21:00)
[2017-11-25] MEDS: Tamsulosin 0.4mg cap ORAL SCH (21:00)
[2017-11-26 04:31] VITALS: BP 157/61
[2017-11-26] MEDS: Midodrine 10mg tab ORAL SCH ×3 (05:07→21:07)
[2017-11-26 08:27] VITALS: BP 130/70
--- NOTE | 2017-11-26 08:31 | General Progress Note ---
Assessment/Plan Problem List: (1) Orthostatic syncope ICD Codes: I95.1 - Orthostatic syncope SNOMED: 025477597 (2) Closed right hip fracture ICD Codes: S72.001A - Fracture of unspecified part of neck of right femur, initial encounter for closed fracture SNOMED: 856977802 Qualifiers: Qualified Codes: S72.001A - Fracture of unspecified part of neck of right femur, initial encounter for closed fracture (3) Dementia ICD Codes: F03.90 - Unspecified dementia without behavioral disturbance SNOMED: 20050847 Qualifiers: Qualified Codes: G30.9 - Alzheimer's disease, unspecified; F02.80 - Dementia in other diseases classified elsewhere without behavioral disturbance Status: stable, progressing Assessment/Plan stable s/p hemiarthroplasty. pain rx dvt prophylaxis will need snf or aru. await confirmation of placement dc ivf d/w dtr in law poc Subjective ROS Limited/Unobtainable: No Constitutional: Reports: malaise, weakness HEENT: Reports: no symptoms Cardiovascular: Reports: no symptoms Respiratory: Reports: no symptoms Gastrointestinal/Abdominal: Reports: no symptoms Genitourinary: Reports: no symptoms Neurologic/Psychiatric: Reports: pre-existing deficit Endocrine: Reports: no symptoms Hematologic/Lymphatic: Reports: no symptoms Allergies: Coded Allergies: No Known Allergies (Unverified , 10/28/14) All Systems: reviewed and negative except above Subjective s/p hemiarthropast. denies co/sob. Objective Last 24 Hour Vital Signs Date Time Temp Pulse Resp B/P (MAP) Pulse Ox O2 Delivery O2 Flow Rate FiO2 11/26/17 08:27 98.4 66 20 130/70 98 11/26/17 04:31 98.4 67 20 157/61 97 11/25/17 23:53 98.4 60 20 136/74 97 11/25/17 21:00 66 138/68 11/25/17 20:54 97.8 66 20 136/68 97 11/25/17 17:50 99 158/69 11/25/17 16:02 98.4 99 20 158/69 99 11/25/17 11:53 97.6 68 20 132/65 98 11/25/17 09:22 65 133/68 11/25/17 09:21 65 133/68 Intake and Output 11/25/17 11/26/17 19:00 07:00 Intake Total 1230 ml Output Total 400 ml Balance 830 ml Intake Oral 1230 ml Output Urine Total 400 ml # Voids 2 2 Height (Feet): 6 Height (Inches): 0.00 Weight (Pounds): 160 Objective General Appearance: WD/WN, alert Neck: supple Cardiovascular: regular rhythm Respiratory/Chest: lungs clear Abdomen: normal bowel sounds, non tender, soft, no organomegaly Edema: no edema noted Arm (L), no edema noted Arm (R), no edema noted Leg (L), no edema noted Leg (R), no edema noted Pedal (L), no edema noted Pedal (R), no edema noted Generalized YOU ROMO Nov 26, 2017 08:31
[2017-11-26] MEDS: celeBREX 200mg Cap **SURGERY PATIENTS ONLY ORAL SCH (08:44)
[2017-11-26] MEDS: Amiodarone 200mg tab ORAL SCH (08:44)
[2017-11-26] MEDS: Docusate 100mg cap ORAL SCH ×3 (08:44→18:34)
[2017-11-26] MEDS: Donepezil 10mg tab ORAL SCH (08:44)
[2017-11-26] MEDS: Metoprolol 25mg tab ORAL SCH ×2 (08:45→20:26)
[2017-11-26 11:41] VITALS: BP 126/71
[2017-11-26 15:57] VITALS: BP 128/64
[2017-11-26 19:54] VITALS: BP 157/76
[2017-11-26] MEDS: Tamsulosin 0.4mg cap ORAL SCH (20:25)
[2017-11-26] MEDS: Enoxaparin 40mg Inj SUBQ SCH (20:27)
[2017-11-27] VITALS: BP 143/65
[2017-11-27 04:00] VITALS: BP 153/76
--- NOTE | 2017-11-27 04:15 | Progress Note ---
DATE: 11/26/2017 CARDIOLOGY PROGRESS NOTE SUBJECTIVE: The patient has no chest pain or shortness of breath. He is status post hemiarthroplasty. Pain is controlled. Mobility is impaired. PHYSICAL EXAMINATION: VITAL SIGNS: Blood pressure 130/70 to 157/61, heart rate 66, respiratory rate 20, and afebrile. LUNGS: Bilateral breath sounds. Scattered rhonchi. HEART: Regular rhythm and rate. Normal S1, S2. A 1/6 systolic apical murmur. ABDOMEN: Soft. EXTREMITIES: Trace edema. Surgical site clean and dry. IMPRESSION: 1. Hip fracture, status post hemiarthroplasty. 2. Hypertensive cardiomyopathy. 3. Ischemic heart disease. 4. Cardiac defibrillator. 5. Chronic systolic and diastolic congestive heart failure. 6. Functional decline. 7. Cerebrovascular disease with dementia. 8. History of orthostatic hypotension and syncope. PLAN: 1. Pain control. 2. Wound care to right hip region. 3. DVT prophylaxis. 4. Titrate cardiovascular regimen. 5. Monitor volume status. 6. No current indication for defibrillator intervention as it was checked in the last month. Tomasz Steele M.D. DR: FRANK JOB#: [id number] CC:
[2017-11-27] MEDS: Midodrine 10mg tab ORAL SCH ×3 (04:59→21:14)
[2017-11-27 08:00] VITALS: BP 136/71
--- NOTE | 2017-11-27 08:29 | General Progress Note ---
Assessment/Plan Problem List: (1) Orthostatic syncope ICD Codes: I95.1 - Orthostatic syncope SNOMED: 051189434 (2) Closed right hip fracture ICD Codes: S72.001A - Fracture of unspecified part of neck of right femur, initial encounter for closed fracture SNOMED: 971172140 Qualifiers: Qualified Codes: S72.001A - Fracture of unspecified part of neck of right femur, initial encounter for closed fracture (3) Dementia ICD Codes: F03.90 - Unspecified dementia without behavioral disturbance SNOMED: 42569200 Qualifiers: Qualified Codes: G30.9 - Alzheimer's disease, unspecified; F02.80 - Dementia in other diseases classified elsewhere without behavioral disturbance Status: stable Assessment/Plan stable s/p hemiarthroplasty. pain rx dvt prophylaxis will need snf or aru. await confirmation of placement dc ivf d/w dtr in law poc Subjective ROS Limited/Unobtainable: No Constitutional: Reports: malaise, weakness HEENT: Reports: no symptoms Cardiovascular: Reports: no symptoms Respiratory: Reports: no symptoms Gastrointestinal/Abdominal: Reports: no symptoms Genitourinary: Reports: no symptoms Neurologic/Psychiatric: Reports: pre-existing deficit Endocrine: Reports: no symptoms Hematologic/Lymphatic: Reports: no symptoms Allergies: Coded Allergies: No Known Allergies (Unverified , 10/28/14) All Systems: reviewed and negative except above Subjective s/p hemiarthropast. denies co/sob. awaiting placement Objective Last 24 Hour Vital Signs Date Time Temp Pulse Resp B/P (MAP) Pulse Ox O2 Delivery O2 Flow Rate FiO2 11/27/17 04:00 97.5 63 18 153/76 100 11/27/17 00:00 97.7 62 18 143/65 100 11/26/17 20:26 67 157/76 11/26/17 19:54 97.7 67 18 157/76 100 11/26/17 18:34 70 128/64 11/26/17 15:57 98.4 70 20 128/64 99 11/26/17 11:41 98.0 63 20 126/71 98 11/26/17 08:45 66 130/70 11/26/17 08:45 66 130/70 Intake and Output 11/26/17 11/27/17 19:00 07:00 Intake Total 720 ml Balance 720 ml Intake Oral 720 ml # Voids 3 4 Height (Feet): 6 Height (Inches): 0.00 Weight (Pounds): 160 Objective General Appearance: WD/WN, alert Neck: supple Cardiovascular: regular rhythm Respiratory/Chest: lungs clear Abdomen: normal bowel sounds, non tender, soft, no organomegaly Edema: no edema noted Arm (L), no edema noted Arm (R), no edema noted Leg (L), no edema noted Leg (R), no edema noted Pedal (L), no edema noted Pedal (R), no edema noted Generalized YOU ROMO Nov 27, 2017 08:29
[2017-11-27] MEDS: Donepezil 10mg tab ORAL SCH (09:27)
[2017-11-27] MEDS: Docusate 100mg cap ORAL SCH ×3 (09:27→18:09)
[2017-11-27] MEDS: celeBREX 200mg Cap **SURGERY PATIENTS ONLY ORAL SCH (09:28)
[2017-11-27] MEDS: Metoprolol 25mg tab ORAL SCH ×2 (09:28→21:15)
[2017-11-27] MEDS: Amiodarone 200mg tab ORAL SCH (09:28)
[2017-11-27 12:00] VITALS: BP 133/87
[2017-11-27 16:00] VITALS: BP 143/76
[2017-11-27 19:58] VITALS: BP 109/50
[2017-11-27] MEDS: Tamsulosin 0.4mg cap ORAL SCH (21:14)
[2017-11-27] MEDS: Enoxaparin 40mg Inj SUBQ SCH (21:17)
[2017-11-27] MEDS: HYDROcodone/Acetamin 7.5/325 tab ORAL PRN (23:36)
[2017-11-28] VITALS: BP 124/58
[2017-11-28 04:00] VITALS: BP 96/53
--- NOTE | 2017-11-28 04:02 | Progress Note ---
DATE: 11/27/2017 CARDIOLOGY PROGRESS NOTE SUBJECTIVE: The patient is being mobilized. No chest pain. No shortness of breath, but fatigued easily. OBJECTIVE: VITAL SIGNS: Blood pressure 153/76, pulse 63, and respirations 18. Surgical site is clean and dry. LUNGS: Clear. CARDIAC: Regular. Normal S1. Paradoxically split S2. A 1/6 systolic apical murmur. ABDOMEN: Soft. EXTREMITIES: No edema. IMPRESSION: 1. Hip fracture status post hemiarthroplasty. 2. Ischemic and hypertensive cardiomyopathy. 3. Cardiac defibrillator. 4. History of orthostatic hypotension. PLAN: 1. Continue current cardiovascular regimen. 2. No need to recheck defibrillator for the next two to three months. 3. Mobilize. 4. Titrate anti-failure and antihypertensive regimen based on clinical parameters. Tomasz Steele M.D. DR: DOMINGO JOB#: [id number] CC:
[2017-11-28] MEDS: Midodrine 10mg tab ORAL SCH ×3 (05:56→22:23)
[2017-11-28 08:00] VITALS: BP 130/70
--- NOTE | 2017-11-28 08:03 | General Progress Note ---
Assessment/Plan Problem List: (1) Orthostatic syncope ICD Codes: I95.1 - Orthostatic syncope SNOMED: 341104590 (2) Closed right hip fracture ICD Codes: S72.001A - Fracture of unspecified part of neck of right femur, initial encounter for closed fracture SNOMED: 818598962 Qualifiers: Qualified Codes: S72.001A - Fracture of unspecified part of neck of right femur, initial encounter for closed fracture (3) Dementia ICD Codes: F03.90 - Unspecified dementia without behavioral disturbance SNOMED: 68439862 Qualifiers: Qualified Codes: G30.9 - Alzheimer's disease, unspecified; F02.80 - Dementia in other diseases classified elsewhere without behavioral disturbance Assessment/Plan stable s/p hemiarthroplasty. pain rx dvt prophylaxis will need snf or aru. await confirmation of placement dtr does not want to pay share of cost dc ivf d/w dtr in law poc Subjective ROS Limited/Unobtainable: No Constitutional: Reports: malaise, weakness HEENT: Reports: no symptoms Cardiovascular: Reports: no symptoms Respiratory: Reports: no symptoms Gastrointestinal/Abdominal: Reports: no symptoms Genitourinary: Reports: no symptoms Neurologic/Psychiatric: Reports: pre-existing deficit Endocrine: Reports: no symptoms Hematologic/Lymphatic: Reports: no symptoms Allergies: Coded Allergies: No Known Allergies (Unverified , 10/28/14) All Systems: reviewed and negative except above Subjective s/p hemiarthropast. denies co/sob. awaiting placement. no change. denies pain Objective Last 24 Hour Vital Signs Date Time Temp Pulse Resp B/P (MAP) Pulse Ox O2 Delivery O2 Flow Rate FiO2 11/28/17 04:00 98.4 64 18 96/53 97 11/28/17 00:00 98.8 70 18 124/58 97 11/27/17 21:15 75 109/50 11/27/17 19:58 99.1 75 18 109/50 97 11/27/17 18:09 77 143/76 11/27/17 16:00 97.5 77 19 143/76 99 11/27/17 12:00 97.5 67 20 133/87 99 Room Air 11/27/17 09:28 68 136/71 11/27/17 09:27 68 136/71 Intake and Output 11/27/17 11/28/17 19:00 07:00 Intake Total 360 ml 260 ml Balance 360 ml 260 ml Intake Oral 360 ml 260 ml # Voids 3 # Bowel Movements 1 1 Height (Feet): 6 Height (Inches): 0.00 Weight (Pounds): 160 Objective General Appearance: WD/WN, alert Neck: supple Cardiovascular: regular rhythm Respiratory/Chest: lungs clear Abdomen: normal bowel sounds, non tender, soft, no organomegaly Edema: no edema noted Arm (L), no edema noted Arm (R), no edema noted Leg (L), no edema noted Leg (R), no edema noted Pedal (L), no edema noted Pedal (R), no edema noted Generalized YOU ROMO Nov 28, 2017 08:03
[2017-11-28] MEDS: Amiodarone 200mg tab ORAL SCH (09:07)
[2017-11-28] MEDS: Metoprolol 25mg tab ORAL SCH ×2 (09:07→20:54)
[2017-11-28] MEDS: celeBREX 200mg Cap **SURGERY PATIENTS ONLY ORAL SCH (09:07)
[2017-11-28] MEDS: Donepezil 10mg tab ORAL SCH (09:08)
[2017-11-28] MEDS: Docusate 100mg cap ORAL SCH ×3 (09:08→17:50)
[2017-11-28 12:00] VITALS: BP 157/78
[2017-11-28 16:00] VITALS: BP 140/55
[2017-11-28 19:58] VITALS: BP 131/82
[2017-11-28] MEDS: Tamsulosin 0.4mg cap ORAL SCH (20:52)
[2017-11-28] MEDS: Enoxaparin 40mg Inj SUBQ SCH (20:56)
[2017-11-29] VITALS (8 sets, daily range): BP systolic 102–145; BP diastolic 52–98
[2017-11-29] MEDS: Midodrine 10mg tab ORAL SCH ×3 (05:39→21:52)
[2017-11-29] MEDS: Docusate 100mg cap ORAL SCH ×3 (08:45→17:27)
[2017-11-29] MEDS: Donepezil 10mg tab ORAL SCH (08:46)
[2017-11-29] MEDS: Amiodarone 200mg tab ORAL SCH (08:46)
[2017-11-29] MEDS: Metoprolol 25mg tab ORAL SCH ×2 (08:46→21:49)
[2017-11-29] MEDS: celeBREX 200mg Cap **SURGERY PATIENTS ONLY ORAL SCH (08:47)
--- NOTE | 2017-11-29 17:33 | Wound Care Consultation ---
Wound Assessment Wound Assessment #1: Wound Number: 1 Wound Present on Admission: Yes New Wound: No Status Change of Wound: No Wound Location Body Site Modif: left Wound Location Body Site: shoulder Wound Type: pressure ulcer Aliza Test: Does not Aliza Wound Thickness: Full Thickness - scar tissue Wound Length: 3.0 Wound Width: 1.5 Wound Depth: utd Percent of Wound [place]/Red: 100 Wound Drainage Amount: None Wound Drainage Odor: None/Absent Tissue Surrounding Wound: Intact Wound General Appearance: Asymptomatic, Reddened Wound Assessment #2: Wound Number: 2 Wound Present on Admission: Yes New Wound: No Status Change of Wound: No Wound Location Body Site Modif: upper Wound Location Body Site: sacral Wound Type: pressure ulcer Aliza Test: Does not Aliza Pressure Ulcer Stage: Deep Tissue Injury Wound Thickness: Full Thickness Wound Length: 4.5 Wound Width: 6.5 Wound Depth: utd Percent of Wound Purple/Maroon: 100 Wound Drainage Amount: None Wound Drainage Odor: None/Absent Tissue Surrounding Wound: Erythemic Wound General Appearance: Reddened - maroon Wound Assessment #3: Wound Number: 3 Wound Present on Admission: Yes New Wound: No Status Change of Wound: No Wound Location Body Site Modif: mid Wound Location Body Site: coccyx Wound Type: pressure ulcer Aliza Test: Does not Aliza Pressure Ulcer Stage: Deep Tissue Injury Wound Thickness: Full Thickness Wound Length: 3.0 Wound Width: 3.5 Wound Depth: utd Percent of Wound Purple/Maroon: 100 Wound Drainage Amount: None Wound Drainage Odor: None/Absent Tissue Surrounding Wound: Intact Wound General Appearance: Reddened - purple Wound Comment #1 Upper left and right sacral area DTI pressure ulcer. Skin still intact #2 Coccygeal area DTI pressure ulcer. Skin still intact #3 Left shoulder full thickness scar tissue. Skin still intact Reassessed this Pt today. No deterioration noted. will cont same wound care treatment and recommendations below. Recommendation -Keep clean and dry -Turn and reposition -Local wound care per protocol -Offload both heels -Heel protector on both heels -Low air loss mattress -Optimize nutrition -Assess and f/u accordingly for any changes BIRGIT DUEÑAS RN Nov 29, 2017 17:33
[2017-11-29] MEDS: Tamsulosin 0.4mg cap ORAL SCH (21:48)
[2017-11-29] MEDS: Enoxaparin 40mg Inj SUBQ SCH (21:50)
--- NOTE | 2017-11-30 01:00 | Progress Note ---
DATE: 11/28/2017 CARDIOLOGY PROGRESS NOTE Late entry for 11/28/2017. SUBJECTIVE: The patient has no chest pain. No shortness of breath. Mobility is limited. He is afebrile. He has not had any dizziness, but blood pressure drops has occasionally been low. OBJECTIVE: VITAL SIGNS: Blood pressure this morning 96/53, heart rate 64, and respiratory rate 18. LUNGS: Good breath sounds. HEART: Regular rhythm and rate. Normal S1, S2 with a 1/6 systolic murmur at apex. ABDOMEN: Soft. EXTREMITIES: No edema. LABORATORY DATA: Labs noted. IMPRESSION: 1. Hip fracture status post open reduction and internal fixation. 2. Cardiac defibrillator. 3. Hyponatremia. 4. Hypertensive cardiomyopathy. 5. Orthostatic hypotension. 6. Fall risk. PLAN: 1. Maintain adequate hydration. 2. Titrate cardiovascular regimen with hold parameters. 3. Midodrine for hypotensive episodes. 4. We will follow. Tomasz Steele M.D. DR: DOMINGO JOB#: [id number] CC:
--- NOTE | 2017-11-30 01:01 | Progress Note ---
DATE: 11/29/2017 CARDIOLOGY PROGRESS NOTE SUBJECTIVE: Discharge planning is in progress. OBJECTIVE: VITAL SIGNS: The patient's blood pressure has improved today 102/52 is a minimum and now 124/68, heart rate 89, respiratory rate 20, afebrile, and room air oxygen saturation is 93%. NECK: Supple. LUNGS: Clear. CARDIAC: Regular. Normal S1 and S2. A 1/6 systolic murmur at apex. ABDOMEN: Soft. EXTREMITIES: No edema. IMPRESSION: 1. Hip fracture status post hemiarthroplasty with pain controlled. 2. Postoperative anemia stable. 3. Cardiac defibrillator, recently interrogated in early November of 2017. 4. Hypertensive cardiomyopathy with compensated systolic and diastolic congestive heart failure. 5. Cerebrovascular disease with dementia. PLAN: 1. Followup laboratory studies. 2. Monitor blood pressure parameters. 3. Monitor for orthostatic symptoms. 4. Physical and occupational therapy with fall precautions. Tomasz Steele M.D. DR: LÁZARO JOB#: [id number] CC:
--- NOTE | 2017-11-30 02:30 | Discharge Summary ---
DATE OF ADMISSION: 11/19/2017 DATE OF DISCHARGE: 11/29/2017 ADMISSION DIAGNOSES: 1. Left hip fracture. 2. History of orthostatic hypotension. 3. Dementia. 4. Hypertensive heart disease. 5. Conduction system disease, status post pacemaker. 6. Benign prostatic hypertrophy. DISCHARGE DIAGNOSES: 1. Left hip fracture. 2. History of orthostatic hypotension. 3. Dementia. 4. Hypertensive heart disease. 5. Conduction system disease, status post pacemaker. 6. Benign prostatic hypertrophy. HOSPITAL COURSE: This is a pleasant male, who was brought in by family members with complaints of difficulty walking. He was diagnosed with a left hip fracture and underwent an uncomplicated hemiarthroplasty, which he tolerated well. It was recommended that the patient go to a residential facility. He was referred to an acute rehabilitation, but they declined the patient. The patient was accepted to several facilities, but family were unwilling to pay the patient's co-pay and refuse to allow the patient go to the residential facility. They in stead want to take the patient home with home health. DISCHARGE MEDICATIONS: Please see discharge medication list for discharge medications. DIET: Cardiac diet. ACTIVITY: Ad-shama. FOLLOWUP: The patient will follow up in one to two days in the office. Home health will be arranged for the patient. Dennis Burger M.D. DR: FAB JOB#: [id number] CC:
[2017-11-30 03:17] VITALS: BP 119/55
[2017-11-30] MEDS: Midodrine 10mg tab ORAL SCH ×3 (06:29→21:07)
[2017-11-30 07:05] LABS: BASOPHILS % (AUTO) 0.7 % (0.0-2.0); EOSINOPHILS % (AUTO) 0.2 % (0.0-3.0); HEMATOCRIT 33.9 % (42.0-52.0); HEMOGLOBIN 11.1 G/DL (14.2-18.0); LYMPHOCYTES % (AUTO) 11.1 % (20.0-45.0); MEAN CORPUSCULAR VOLUME 91 FL (80-99); MONOCYTES % (AUTO) 8.4 % (1.0-10.0); NEUTROPHILS % (AUTO) 79.6 % (45.0-75.0); PLATELET COUNT 261 K/UL (150-450); RED BLOOD COUNT 3.74 M/UL (4.70-6.10); RED CELL DISTRIBUTION WIDTH 12.8 % (11.6-14.8); WHITE BLOOD COUNT 8.4 K/UL (4.8-10.8)
[2017-11-30 07:42] LABS: ALANINE AMINOTRANSFERASE 42 U/L (12-78); ALBUMIN 2.1 G/DL (3.4-5.0); ALBUMIN/GLOBULIN RATIO 0.6 (1.0-2.7); ALKALINE PHOSPHATASE 105 U/L (46-116); ANION GAP 11 mmol/L (5-15); ASPARTATE AMINO TRANSFERASE 37 U/L (15-37); BILIRUBIN,TOTAL 0.4 MG/DL (0.2-1.0); BLOOD UREA NITROGEN 17 mg/dL (7-18); CALCIUM 8.6 MG/DL (8.5-10.1); CARBON DIOXIDE 23 MMOL/L (21-32); CHLORIDE 102 MMOL/L (98-107); CREATININE 0.9 MG/DL (0.55-1.30); SODIUM 136 MMOL/L (136-145)
[2017-11-30 08:29] VITALS: BP 130/58
[2017-11-30] MEDS: Docusate 100mg cap ORAL SCH ×3 (09:07→17:46)
[2017-11-30] MEDS: celeBREX 200mg Cap **SURGERY PATIENTS ONLY ORAL SCH (09:08)
[2017-11-30] MEDS: Metoprolol 25mg tab ORAL SCH ×2 (09:08→21:00)
[2017-11-30] MEDS: Amiodarone 200mg tab ORAL SCH (09:08)
[2017-11-30] MEDS: Donepezil 10mg tab ORAL SCH (09:09)
--- NOTE | 2017-11-30 10:13 | General Progress Note ---
Assessment/Plan Problem List: (1) Orthostatic syncope ICD Codes: I95.1 - Orthostatic syncope SNOMED: 536255634 (2) Closed right hip fracture ICD Codes: S72.001A - Fracture of unspecified part of neck of right femur, initial encounter for closed fracture SNOMED: 921863713 Qualifiers: Qualified Codes: S72.001A - Fracture of unspecified part of neck of right femur, initial encounter for closed fracture (3) Dementia ICD Codes: F03.90 - Unspecified dementia without behavioral disturbance SNOMED: 37157559 Qualifiers: Qualified Codes: G30.9 - Alzheimer's disease, unspecified; F02.80 - Dementia in other diseases classified elsewhere without behavioral disturbance Status: stable, progressing Assessment/Plan stable s/p hemiarthroplasty. pain rx dvt prophylaxis will need snf or aru. await confirmation of placement dtr does not want to pay share of cost dc ivf d/w dtr in law poc Subjective ROS Limited/Unobtainable: No Constitutional: Reports: malaise, weakness HEENT: Reports: no symptoms Cardiovascular: Reports: no symptoms Respiratory: Reports: no symptoms Gastrointestinal/Abdominal: Reports: no symptoms Genitourinary: Reports: no symptoms Neurologic/Psychiatric: Reports: pre-existing deficit Endocrine: Reports: no symptoms Hematologic/Lymphatic: Reports: no symptoms Allergies: Coded Allergies: No Known Allergies (Unverified , 10/28/14) All Systems: reviewed and negative except above Subjective s/p hemiarthroplasty. denies co/sob. awaiting placement. no change. denies pain Objective Last 24 Hour Vital Signs Date Time Temp Pulse Resp B/P (MAP) Pulse Ox O2 Delivery O2 Flow Rate FiO2 11/30/17 09:08 72 130/58 11/30/17 09:08 72 130/58 11/30/17 08:37 Room Air 11/30/17 08:29 98.2 72 20 130/58 98 11/30/17 03:17 98.4 70 20 119/55 92 Room Air 11/29/17 23:45 100.2 73 20 124/56 97 Room Air 11/29/17 21:49 89 124/68 11/29/17 19:20 98.1 89 20 124/68 93 Room Air 11/29/17 17:27 66 102/52 1/26/18 16:59 Room Air 11/29/17 16:00 97.2 66 19 102/52 94 11/29/17 14:02 98.8 11/29/17 12:48 Room Air 11/29/17 12:00 100.0 70 19 112/61 98 Intake and Output 11/29/17 11/30/17 19:00 07:00 Intake Total 240 ml 360 ml Balance 240 ml 360 ml Intake Oral 240 ml 360 ml # Voids 3 3 # Bowel Movements 1 2 Laboratory Tests 11/30/17 04:55: White Blood Count 8.4, Red Blood Count 3.74L, Hemoglobin 11.1L, Hematocrit 33.9L , Mean Corpuscular Volume 91, Mean Corpuscular Hemoglobin 29.6, Mean Corpuscular Hemoglobin Concent 32.7, Red Cell Distribution Width 12.8, Platelet Count 261, Mean Platelet Volume 5.6L, Neutrophils (%) (Auto) 79.6H, Lymphocytes (%) (Auto) 11.1L, Monocytes (%) (Auto) 8.4, Eosinophils (%) (Auto) 0.2, Basophils (%) (Auto) 0.7, Sodium Level 136, Potassium Level 4.0, Chloride Level 102, Carbon Dioxide Level 23, Anion Gap 11, Blood Urea Nitrogen 17, Creatinine 0.9, Estimat Glomerular Filtration Rate , Glucose Level 96, Calcium Level 8.6, Magnesium Level 1.6L, Total Bilirubin 0.4, Aspartate Amino Transf (AST/SGOT) 37 , Alanine Aminotransferase (ALT/SGPT) 42, Alkaline Phosphatase 105, Pro-B-Type Natriuretic Peptide 1285H, Total Protein 5.9L, Albumin 2.1L, Globulin 3.8, Albumin/Globulin Ratio 0.6L Height (Feet): 6 Height (Inches): 0.00 Weight (Pounds): 160 Objective General Appearance: WD/WN, alert Neck: supple Cardiovascular: regular rhythm Respiratory/Chest: lungs clear Abdomen: normal bowel sounds, non tender, soft, no organomegaly Edema: no edema noted Arm (L), no edema noted Arm (R), no edema noted Leg (L), no edema noted Leg (R), no edema noted Pedal (L), no edema noted Pedal (R), no edema noted Generalized YOU ROMO Nov 30, 2017 10:13
[2017-11-30 11:20] VITALS: BP 126/62
[2017-11-30 15:52] VITALS: BP 109/51
[2017-11-30 20:24] VITALS: BP 104/52
[2017-11-30] MEDS: Tamsulosin 0.4mg cap ORAL SCH (21:07)
[2017-11-30] MEDS: Enoxaparin 40mg Inj SUBQ SCH (21:09)
[2017-12-01] VITALS (7 sets, daily range): BP systolic 136–153; BP diastolic 67–93
[2017-12-01] MEDS: Midodrine 10mg tab ORAL SCH ×3 (06:42→17:55)
[2017-12-01] MEDS: celeBREX 200mg Cap **SURGERY PATIENTS ONLY ORAL SCH (08:48)
[2017-12-01] MEDS: Docusate 100mg cap ORAL SCH ×3 (08:48→17:54)
[2017-12-01] MEDS: Metoprolol 25mg tab ORAL SCH ×2 (08:48→20:59)
[2017-12-01] MEDS: Donepezil 10mg tab ORAL SCH (08:48)
[2017-12-01] MEDS: Amiodarone 200mg tab ORAL SCH (08:48)
--- NOTE | 2017-12-01 12:22 | General Progress Note ---
Assessment/Plan Problem List: (1) Orthostatic syncope ICD Codes: I95.1 - Orthostatic syncope SNOMED: 070691935 (2) Closed right hip fracture ICD Codes: S72.001A - Fracture of unspecified part of neck of right femur, initial encounter for closed fracture SNOMED: 119659377 Qualifiers: Qualified Codes: S72.001A - Fracture of unspecified part of neck of right femur, initial encounter for closed fracture (3) Dementia ICD Codes: F03.90 - Unspecified dementia without behavioral disturbance SNOMED: 05382394 Qualifiers: Qualified Codes: G30.9 - Alzheimer's disease, unspecified; F02.80 - Dementia in other diseases classified elsewhere without behavioral disturbance Status: stable, progressing Assessment/Plan stable s/p hemiarthroplasty. pain rx dvt prophylaxis will need snf or aru. await confirmation of placement dtr does not want to pay share of cost dc ivf d/w dtr in law poc dc tomorrow when all dme arrives Subjective ROS Limited/Unobtainable: No Constitutional: Reports: weakness HEENT: Reports: no symptoms Cardiovascular: Reports: no symptoms Respiratory: Reports: no symptoms Gastrointestinal/Abdominal: Reports: no symptoms Genitourinary: Reports: no symptoms Neurologic/Psychiatric: Reports: pre-existing deficit Endocrine: Reports: no symptoms Hematologic/Lymphatic: Reports: no symptoms Allergies: Coded Allergies: No Known Allergies (Unverified , 10/28/14) All Systems: reviewed and negative except above Subjective s/p hemiarthroplasty. denies co/sob. awaiting DME. hospital bed arriving tomorrow. Objective Last 24 Hour Vital Signs Date Time Temp Pulse Resp B/P (MAP) Pulse Ox O2 Delivery O2 Flow Rate FiO2 12/01/17 12:04 97.2 60 18 138/68 97 Room Air 12/01/17 08:48 67 137/70 12/01/17 08:48 67 137/70 12/01/17 08:07 97.8 67 18 137/70 92 Room Air 12/01/17 04:00 97.3 63 21 140/79 98 Room Air 12/01/17 00:12 98.0 62 20 136/67 96 11/30/17 21:00 67 104/52 11/30/17 20:24 98.0 67 20 104/52 96 11/30/17 17:47 60 109/51 11/30/17 16:35 Room Air 11/30/17 15:52 98.0 60 20 109/51 98 Intake and Output 11/30/17 12/01/17 19:00 07:00 Intake Total 840 ml Balance 840 ml Intake Oral 840 ml # Voids 3 2 # Bowel Movements 3 Height (Feet): 6 Height (Inches): 0.00 Weight (Pounds): 160 Objective General Appearance: WD/WN, alert Neck: supple Cardiovascular: regular rhythm Respiratory/Chest: lungs clear Abdomen: normal bowel sounds, non tender, soft, no organomegaly Edema: no edema noted Arm (L), no edema noted Arm (R), no edema noted Leg (L), no edema noted Leg (R), no edema noted Pedal (L), no edema noted Pedal (R), no edema noted Generalized YOU ROMO Dec 01, 2017 12:22
--- NOTE | 2017-12-01 20:32 | Progress Note ---
DATE: 11/30/2017 CARDIOLOGY PROGRESS NOTE SUBJECTIVE: The patient has no pain. No falls or loss of consciousness. No dizziness. No chest pain. No defibrillator discharge. OBJECTIVE: VITAL SIGNS: Blood pressure 130/58, pulse 73, and respiratory rate 20. NECK: Supple. LUNGS: Clear. CARDIAC: Regular rhythm and rate. Normal S1 and S2. A 1/6 systolic murmur at apex. ABDOMEN: Soft. EXTREMITIES: Trace edema. Surgical site clean and dry. LABORATORY AND DIAGNOSTIC DATA: White count 8.4 and hemoglobin 11.1. Potassium 4, BUN 17 and creatinine 0.9. Magnesium 1.6. Albumin 2.1. IMPRESSION: 1. Status post hemiarthroplasty for hip fracture. 2. Hypomagnesemia. 3. Cardiomyopathy with compensated systolic and diastolic congestive heart failure. PLAN: 1. Fall precautions. 2. Postoperative care. 3. Mobilization. 4. Intravenous magnesium to be arranged. 5. Continue current cardiovascular regimen. Tomasz Steele M.D. DR: ÁLZARO JOB#: [id number] CC:
[2017-12-01] MEDS: Tamsulosin 0.4mg cap ORAL SCH (20:59)
[2017-12-01] MEDS: Enoxaparin 40mg Inj SUBQ SCH (21:00)
--- NOTE | 2017-12-01 23:00 | Progress Note ---
DATE: 12/01/2017 CARDIOLOGY PROGRESS NOTE SUBJECTIVE: The patient is without chest pain or shortness of breath. Blood pressure parameters have increased. Natriuretic peptide assay is currently elevated in the range of 1500. OBJECTIVE: VITAL SIGNS: Blood pressure 138/68, pulse 60, and respirations 18. NECK: Supple. LUNGS: Diminished breath sounds. No wheezing. CARDIAC: Regular rhythm and rate. Normal S1 and S2. A 1/6 systolic apical murmur. ABDOMEN: Soft. EXTREMITIES: Trace edema. IMPRESSION: 1. Acute on chronic systolic and diastolic congestive heart failure. 2. History of ventricular tachycardia. 3. Paroxysmal atrial fibrillation. 4. Cardiac defibrillator. 5. Ischemic and hypertensive cardiomyopathy. 6. Hip fracture, status post hemiarthroplasty. 7. Orthostatic hypotension. 8. Hypomagnesemia. PLAN: 1. Additional IV magnesium. 2. Diuresis x1 with potassium replacement. 3. Decrease midodrine dosing to b.i.d. 4. Monitor cardiorenal parameters and hemodynamics. 5. Optimize therapy pending discharge. Tomasz Steele M.D. DR: Nel JOB#: [id number] CC:
[2017-12-02 04:11] VITALS: BP 141/60
--- NOTE | 2017-12-02 07:15 | Progress Note ---
DATE: 11/25/2017 CARDIOLOGY PROGRESS NOTE SUBJECTIVE: The patient is status post hemiarthroplasty. No perioperative complications. He is on pain medications. He denies chest pain or shortness of breath. OBJECTIVE: VITAL SIGNS: Blood pressure 132/65, pulse 68, respirations 20, and afebrile. LUNGS: With good breath sounds. No wheezing or rales. CARDIAC: Regular rhythm and rate. Normal S1 and S2 with a 1/6 systolic murmur at apex. ABDOMEN: Soft, nontender. EXTREMITIES: With good distal pulses. Trace edema. SKIN: Surgical site clean and dry. LABORATORY DATA: White count is 5.9, hemoglobin 10.9. IMPRESSION: 1. Hip fracture, status post hemiarthroplasty. 2. Ischemic and hypertensive cardiomyopathy with stable blood pressure range. 3. History of orthostatic hypotension, presently stable. 4. Cardiac defibrillator with stable cardiac rhythm. 5. Chronic systolic and diastolic congestive heart failure, clinically compensated. PLAN: 1. Titrate anti-failure regimen and midodrine. 2. Mobilize. 3. Pain control. 4. Discharge planning. 5. Fall precautions. Tomasz Steele M.D. DR: Nel JOB#: [id number] CC:
[2017-12-02 08:00] VITALS: BP 127/68
[2017-12-02] MEDS: Donepezil 10mg tab ORAL SCH (09:28)
[2017-12-02] MEDS: celeBREX 200mg Cap **SURGERY PATIENTS ONLY ORAL SCH (09:29)
[2017-12-02] MEDS: Docusate 100mg cap ORAL SCH ×3 (09:29→18:00)
[2017-12-02] MEDS: Midodrine 10mg tab ORAL SCH (09:29)
[2017-12-02] MEDS: Amiodarone 200mg tab ORAL SCH (09:29)
[2017-12-02] MEDS: Metoprolol 25mg tab ORAL SCH (09:29)
--- NOTE | 2017-12-02 11:59 | General Progress Note ---
Assessment/Plan Problem List: (1) Orthostatic syncope ICD Codes: I95.1 - Orthostatic syncope SNOMED: 675087729 (2) Closed right hip fracture ICD Codes: S72.001A - Fracture of unspecified part of neck of right femur, initial encounter for closed fracture SNOMED: 979042240 Qualifiers: Qualified Codes: S72.001A - Fracture of unspecified part of neck of right femur, initial encounter for closed fracture (3) Dementia ICD Codes: F03.90 - Unspecified dementia without behavioral disturbance SNOMED: [id number] Qualifiers: Qualified Codes: G30.9 - Alzheimer's disease, unspecified; F02.80 - Dementia in other diseases classified elsewhere without behavioral disturbance Status: stable, progressing Assessment/Plan stable s/p hemiarthroplasty. pain rx dvt prophylaxis will need snf dtr does not want to pay share of cost dc ivf d/w dtr in law poc dc when all dme arrives Subjective ROS Limited/Unobtainable: No Constitutional: Reports: malaise, weakness HEENT: Reports: no symptoms Cardiovascular: Reports: no symptoms Respiratory: Reports: cough Gastrointestinal/Abdominal: Reports: no symptoms Genitourinary: Reports: no symptoms Neurologic/Psychiatric: Reports: pre-existing deficit Endocrine: Reports: no symptoms Hematologic/Lymphatic: Reports: no symptoms Allergies: Coded Allergies: No Known Allergies (Unverified , 10/28/14) All Systems: reviewed and negative except above Subjective s/p hemiarthroplasty. denies co/sob. awaiting DME. hospital bed supposed to arrive today. Objective Last 24 Hour Vital Signs Date Time Temp Pulse Resp B/P (MAP) Pulse Ox O2 Delivery O2 Flow Rate FiO2 12/02/17 09:29 73 127/68 12/02/17 09:29 73 127/68 12/02/17 08:00 98.4 73 18 127/68 96 12/02/17 04:11 97.0 68 18 141/60 95 12/02/17 04:00 Room Air 12/02/17 00:11 Room Air 12/01/17 23:58 97.0 74 18 144/72 95 12/01/17 20:59 77 153/93 12/01/17 20:23 96.1 77 18 153/93 94 12/01/17 20:00 Room Air 12/01/17 17:55 66 141/70 12/01/17 16:00 96.1 66 18 141/70 97 Room Air 12/01/17 12:04 97.2 60 18 138/68 97 Room Air Intake and Output 12/01/17 12/02/17 19:00 07:00 Intake Total 720 ml 100 ml Balance 720 ml 100 ml Intake Oral 720 ml IV Total 100 ml # Voids 2 2 # Bowel Movements 2 Height (Feet): 6 Height (Inches): 0.00 Weight (Pounds): 160 Objective General Appearance: WD/WN, alert Neck: supple Cardiovascular: regular rhythm Respiratory/Chest: lungs clear Abdomen: normal bowel sounds, non tender, soft, no organomegaly Edema: no edema noted Arm (L), no edema noted Arm (R), no edema noted Leg (L), no edema noted Leg (R), no edema noted Pedal (L), no edema noted Pedal (R), no edema noted Generalized YOU ROMO Dec 02, 2017 11:59
[2017-12-02 12:00] VITALS: BP 137/63
[2017-12-02 16:00] VITALS: BP 115/58
--- NOTE | 2017-12-03 02:45 | Progress Note ---
DATE: 12/02/2017 CARDIOLOGY PROGRESS NOTE SUBJECTIVE: Pain is controlled. The patient's mobility is improved. He does require assist. OBJECTIVE: VITAL SIGNS: Blood pressure 127/68, pulse 73, respirations 18, and afebrile. LUNGS: Clear. CARDIAC: Regular rhythm and rate. Normal S1 and S2. A 1/6 systolic murmur at apex. ABDOMEN: Soft. EXTREMITIES: Trace edema. SKIN: Surgical site clean and dry. IMPRESSION: 1. Status post hip fracture and hemiarthroplasty. 2. Hypomagnesemia, status post replacement. 3. Acute on chronic diastolic and systolic congestive heart failure, clinically compensated. 4. Cardiac defibrillator with stable function, status post recent interrogation. 5. Hypertensive and ischemic cardiomyopathy. 6. Cerebrovascular disease with dementia. 7. Fall risk. 8. Severe protein-calorie malnutrition. PLAN: 1. Discharge home with hospital bed, home health. 2. [id number] to assist with care. 3. Current cardiovascular regimen adequate. 4. Outpatient defibrillator. 5. Followup plan. 6. Discharge medications reviewed with primary care physician. Tomasz Steele M.D. DR: Nel JOB#: [id number] CC:
--- NOTE | 2017-12-05 17:15 | Consultation ---
DATE OF CONSULTATION: 11/19/2017 CARDIOLOGY CONSULTATION CONSULTING PHYSICIAN: Tomasz Steele M.D. REQUESTING PHYSICIAN: Dennis Burger M.D. REASON FOR CONSULTATION: Hip fracture in the setting of cardiomyopathy and cardiac defibrillator. HISTORY OF PRESENT ILLNESS: This is an 82-year-old male with a known history of underlying cardiomyopathy and cardiac defibrillator, who has recently been convalescing at a longterm facility. The patient apparently had back pain, weakness, and was unable to get into bed. He noted some pain and was found to have a hematoma on his right leg by medical staff. The patient was brought to the emergency room and imaging studies confirmed the right hip fracture. There is no definitive documentation of fall however. PAST MEDICAL HISTORY: 1. Hypertension. 2. Hypertensive heart disease. 3. Arteriosclerotic cardiovascular disease. 4. Chronic systolic and diastolic congestive heart failure. 5. Cerebrovascular disease with dementia. 6. Paroxysmal ventricular tachycardia. 7. Paroxysmal atrial fibrillation. 8. Cardiac defibrillator. 9. Chronic obstructive pulmonary disease. 10. History of orthostatic hypotension. MEDICATIONS: Reviewed and reconciled. ALLERGIES: None. FAMILY HISTORY: Son recently of an unknown malignancy. SOCIAL HISTORY: Distant smoking history. No alcohol or substance abuse. REVIEW OF SYSTEMS: Cannot be reliably obtained from the patient. It should be noted, however in October of this year, the patient was hospitalized here and again his cardiac defibrillator was interrogated. It had been functioning adequately. No shocks were noted and the battery life was adequate. The patient's baseline echocardiogram reveals an ejection fraction of about 45% with mild global hypokinesis and mild degenerative valve disease with regurgitation. PHYSICAL EXAMINATION: VITAL SIGNS: Blood pressure 185/78, pulse 93, respirations 18, and afebrile. Oxygen saturation on room air 98%. HEENT: Normocephalic and atraumatic. Conjunctivae pink. Oropharynx clear. Arcus senilis. NECK: Supple. No jugular venous distention. LUNGS: Clear. Defibrillator pocket site is clean and dry. CARDIAC: Regular rhythm and rate. Normal S1 and paradoxically split S2. A 1/6 systolic murmur at apex. ABDOMEN: Soft and nontender. EXTREMITIES: With hematoma over the right thigh. Good distal pulses and no edema. LABORATORY DATA: Reviewed. Chest x-ray with no acute process. EKG with atrial pacing and nonspecific ST-T wave changes. IMPRESSION: 1. Acute right hip fracture. 2. Possible mechanical fall. 3. Cardiomyopathy. 4. Chronic diastolic and systolic congestive heart failure. 5. History of atrial and ventricular arrhythmias. 6. Cardiac defibrillator with stable function. 7. Cerebrovascular disease with dementia. PLAN: 1. Bedrest. 2. DVT prophylaxis. 3. Pain control. 4. Serial hemoglobin. 5. Continue baseline cardiovascular regimen. 6. Orthopedic surgical plan noted. 7. Stable and optimized from cardiovascular standpoint with minimally increased risk under general anesthesia for orthopedic procedure. Tomasz Steele M.D. DR: DOMINGO JOB#: [id number] CC:
== END 2017-12-02 18:25 | disposition home health service (06) | DRG 469 ==
LOC: EDBD 13:51 → EMR 15:18 → MERGE 15:24 → 4W 15:24 → EDBEDREQ 15:40 → 4W 18:23
PROC: 0SRR0JZ Replacement of Right Hip Joint, Femoral Surface with Synthetic Substitute, Open Approach (ICD-10-PCS; principal; 2017-11-21 06:45)
DX: S72.011A Unspecified intracapsular fracture of right femur, initial encounter for closed fracture (principal); I50.43 Acute on chronic combined systolic (congestive) and diastolic (congestive) heart failure; E43 Unspecified severe protein-calorie malnutrition; I42.9 Cardiomyopathy, unspecified; I25.9 Chronic ischemic heart disease, unspecified; G30.9 Alzheimer's disease, unspecified; F03.90 Unspecified dementia, unspecified severity, without behavioral disturbance, psychotic disturbance, mood disturbance, and anxiety; E46 Unspecified protein-calorie malnutrition; E83.42 Hypomagnesemia; I11.0 Hypertensive heart disease with heart failure; Z68.21 Body mass index [BMI] 21.0-21.9, adult; Z95.0 Presence of cardiac pacemaker; I95.1 Orthostatic hypotension; W19.XXXA Unspecified fall, initial encounter; Z91.81 History of falling; Y92.9 Unspecified place or not applicable; F02.80 Dementia in other diseases classified elsewhere, unspecified severity, without behavioral disturbance, psychotic disturbance, mood disturbance, and anxiety; N40.0 Benign prostatic hyperplasia without lower urinary tract symptoms; Z23 Encounter for immunization
CPT/HCPCS: 36415; 71045; 72170; 73502; 80048; 80053; 82962; 83735; 83880; 85025; 85610; 85730; 86850; 86900; 86901; 87081; 90630; 93005; 93306; 94003; 94150; 99285; J2250; J3490; J8499

== ENCOUNTER 2017-12-09 08:52 | Inpatient (IN) | payer MEDICARE, OTHER ==
[2017-12-09] VITALS (8 sets, daily range): BP systolic 107–149; BP diastolic 54–76
[~2017-12-09] VITALS: Ht 185.4 cm; Wt 95.3 kg
[~2017-12-09 08:52] MED LIST changes: -Ketorolac 30mg Inj IV ONE; +LOVENOX10 M4 SUBQ
[2017-12-09] MEDS ORDERED: Morphine Sulfate 2mg/ml Inj IVP ONE (09:00)
--- NOTE | 2017-12-09 09:03 | Emergency Room Report ---
History of Present Illness General Chief Complaint: Pain Source: Family Member, EMS Present Illness HPI The patient returned to the emergency department after having hip surgery a week ago with hip pain. Apparently there is no pain medication at home. The patient suffers from dementia and denies any pain at this time however when he is moved there is pain. 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 She's been giving him 4 bottles of water however she feels that he he is dehydrated. No fever. Patient does not have a G tube. No noted fever. No vomiting. Incontinent or urine. Allergies: Coded Allergies: No Known Allergies (Unverified , 05/04/12) Patient History Limited by: medical condition Past Medical History: see triage record, old chart reviewed Past Surgical History: other - R hip surgery Social History Narrative at home Reviewed Nursing Documentation: PMH: Agreed, PSxH: Agreed Nursing Documentation-PMH Past Medical History: No History, Except For Hx Cardiac Problems: Yes Hx Hypertension: Yes - ORTHOSTATIC HYPOTENTION Hx Pacemaker: Yes Hx Cancer: Yes - (NONE PER PATIENT) Hx Gastrointestinal Problems: No Hx Dementia: Yes Review of Systems All Other Systems: limited Physical Exam Vital Signs Date Time Temp Pulse Resp B/P (MAP) Pulse Ox O2 Delivery O2 Flow Rate FiO2 12/09/17 08:43 84 18 123/73 98 Room Air Sp02 EP Interpretation: reviewed, normal General Appearance: no apparent distress, thin, other - urine smell, Chronically Ill Head: normocephalic Eyes: bilateral eye normal inspection ENT: moist mucus membranes - poor dentition Neck: supple Respiratory: lungs clear, normal breath sounds Cardiovascular #1: regular rate, rhythm Cardiovascular #2: 2+ radial (R) Gastrointestinal: normal inspection, normal bowel sounds, non tender, no mass, non-distended Musculoskeletal: pelvis stable, other - flexion contractures bilat legs, tender - R hip with any ROM Neurologic: alert, oriented - X1 Psychiatric: mood/affect normal, other - poor memory Skin: warm/dry, other - scar R hip, no erythema, also stage 2 decubitus below scar area Medical Decision Making Diagnostic Impression: Primary Impression: Right hip pain Additional Impressions: Dehydration Decubitus skin ulcer Qualified Codes: L89.212 - Pressure ulcer of right hip, stage 2 ER Course Patient presents with right hip pain post surgery. Differential includes under- medication, dislocation, wound infection amongst others. The patient was evaluated with x-rays and EKG and labs. We treated with some mild IV hydration and also analgesia. Improved with treatment. Daughter still concerned over dehydration and inability to eat secondary to uncontrolled pain. Admit med Dr. Burger. Laboratory Tests Test 12/09/17 09:35 White Blood Count 8.7 K/UL (4.8-10.8) Red Blood Count 4.29 M/UL (4.70-6.10) L Hemoglobin 12.4 G/DL (14.2-18.0) L Hematocrit 39.0 % (42.0-52.0) L Mean Corpuscular Volume 91 FL (80-99) Mean Corpuscular Hemoglobin 28.9 PG (27.0-31.0) Mean Corpuscular Hemoglobin Concent 31.9 G/DL (32.0-36.0) L Red Cell Distribution Width 13.8 % (11.6-14.8) Platelet Count 305 K/UL (150-450) Mean Platelet Volume 6.2 FL (6.5-10.1) L Neutrophils (%) (Auto) 75.2 % (45.0-75.0) H Lymphocytes (%) (Auto) 15.2 % (20.0-45.0) L Monocytes (%) (Auto) 8.9 % (1.0-10.0) Eosinophils (%) (Auto) 0.4 % (0.0-3.0) Basophils (%) (Auto) 0.3 % (0.0-2.0) Prothrombin Time 11.3 SEC (9.30-11.50) Prothrombin Time INR 1.1 (0.9-1.1) PTT 27 SEC (23-33) Urine Color Yellow Urine Appearance Clear Urine pH 6 (4.5-8.0) Urine Specific Raymond 1.020 (1.005-1.035) Urine Protein Negative (NEGATIVE) Urine Glucose (UA) Negative (NEGATIVE) Urine Ketones Negative (NEGATIVE) Urine Occult Blood 1+ (NEGATIVE) H Urine Nitrite Negative (NEGATIVE) Urine Bilirubin Negative (NEGATIVE) Urine Urobilinogen 4 MG/DL (0.0-1.0) H Urine Leukocyte Esterase Negative (NEGATIVE) Urine RBC 0-2 /HPF (0 - 0) H Urine WBC 0-2 /HPF (0 - 0) Urine Squamous Epithelial Cells Occasional /LPF Urine Bacteria None /HPF (NONE) Sodium Level 138 MMOL/L (136-145) Potassium Level 4.4 MMOL/L (3.5-5.1) Chloride Level 104 MMOL/L (98-107) Carbon Dioxide Level 30 MMOL/L (21-32) Anion Gap 4 mmol/L (5-15) L Blood Urea Nitrogen 19 mg/dL (7-18) H Creatinine 1.3 MG/DL (0.55-1.30) Estimate Glomerular Filtration Rate mL/min (>60) Glucose Level 109 MG/DL (74-106) H Calcium Level 9.6 MG/DL (8.5-10.1) Total Bilirubin 0.6 MG/DL (0.2-1.0) Aspartate Amino Transferase (AST) 45 U/L (15-37) H Alanine Aminotransferase (ALT) 38 U/L (12-78) Alkaline Phosphatase 103 U/L (46-116) Total Creatine Kinase 1036 U/L (26-308) H Troponin I 0.000 ng/mL (0.000-0.056) Pro-B-Type Natriuretic Peptide 516 pg/mL (0-125) H Total Protein 8.1 G/DL (6.4-8.2) Albumin 2.6 G/DL (3.4-5.0) L Globulin 5.5 g/dL Albumin/Globulin Ratio 0.5 (1.0-2.7) L EKG Diagnostic Results Rate: normal Rhythm: NSR ST Segments: no acute changes Rhythm Strip Diag. Results EP Interpretation: yes Rhythm: NSR, no PVC's, no ectopy Other X-Ray Diagnostic Results Other X-Ray Diagnostic Results : X-Ray ordered: pelvis # of Views/Limited Vs Complete: 1 View Indication: Pain Interpretation: no dislocation, no soft tissue swelling, no fractures, other - prosthesis good Impression: Other Electronically Signed by: Tomasz Christian MD Last Vital Signs Date Time Temp Pulse Resp B/P (MAP) Pulse Ox O2 Delivery O2 Flow Rate FiO2 12/09/17 19:19 98.6 80 20 137/69 97 Room Air 76 Status: improved Disposition: ADMITTED INPATIENT Condition: Serious Tomasz Christian M.D. Dec 09, 2017 09:03
[2017-12-09 10:05] LABS: BASOPHILS % (AUTO) 0.3 % (0.0-2.0); EOSINOPHILS % (AUTO) 0.4 % (0.0-3.0); HEMOGLOBIN 12.4 G/DL (14.2-18.0); LYMPHOCYTES % (AUTO) 15.2 % (20.0-45.0); MEAN CORPUSCULAR VOLUME 91 FL (80-99); MONOCYTES % (AUTO) 8.9 % (1.0-10.0); NEUTROPHILS % (AUTO) 75.2 % (45.0-75.0); PLATELET COUNT 305 K/UL (150-450); RED BLOOD COUNT 4.29 M/UL (4.70-6.10); RED CELL DISTRIBUTION WIDTH 13.8 % (11.6-14.8); WHITE BLOOD COUNT 8.7 K/UL (4.8-10.8)
[2017-12-09 10:11] LABS: APPEARANCE,URINE CLEAR; BILIRUBIN, URINE NEGATIVE (NEGATIVE); GLUCOSE, URINE (UA) NEGATIVE (NEGATIVE); KETONES,URINE NEGATIVE (NEGATIVE); LEUKOCYTE ESTERASE ,URINE NEGATIVE (NEGATIVE); NITRITE,URINE NEGATIVE (NEGATIVE); PH,URINE 6 (4.5-8.0); PROTEIN,URINE NEGATIVE (NEGATIVE); UROBILINOGEN,URINE 4 MG/DL (0.0-1.0)
[2017-12-09 10:14] LABS: INR 1.1 (0.9-1.1)
[2017-12-09 10:15] LABS: ANION GAP 4 mmol/L (5-15); BLOOD UREA NITROGEN 19 mg/dL (7-18); CALCIUM 9.6 MG/DL (8.5-10.1); CARBON DIOXIDE 30 MMOL/L (21-32); CHLORIDE 104 MMOL/L (98-107); CREATININE 1.3 MG/DL (0.55-1.30); POTASSIUM 4.4 MMOL/L (3.5-5.1); SODIUM 138 MMOL/L (136-145)
[2017-12-09 10:19] LABS: COLOR,URINE YELLOW
[2017-12-09 10:29] LABS: ALANINE AMINOTRANSFERASE 38 U/L (12-78); ALBUMIN 2.6 G/DL (3.4-5.0); ALBUMIN/GLOBULIN RATIO 0.5 (1.0-2.7); ALKALINE PHOSPHATASE 103 U/L (46-116); ASPARTATE AMINO TRANSFERASE 45 U/L (15-37); BILIRUBIN,TOTAL 0.6 MG/DL (0.2-1.0); CREATINE KINASE 1036 U/L (26-308)
--- NOTE | 2017-12-09 12:49 | Diagnostic Imaging Report ---
Indication: Pain and trauma Technique: One view of the pelvis Comparison: none Findings: Patient is rotated to the right. No definite acute fractures. No dislocations. The joint spaces are preserved. There is a right hip hemiarthroplasty. The bones are osteoporotic. There is an inferior vena cava filter noted. Impression: No gross acute bony trauma. Note, however, that in elderly osteoporotic patients, nondisplaced hip and pelvic fractures can easily be occult. Consider cross-sectional imaging if there is high clinical suspicion Postsurgical changes as described
[2017-12-09] MEDS: Tamsulosin 0.4mg cap ORAL SCH (21:49)
[2017-12-09] MEDS: HYDROcodone/Acetamin 10/325 tab ORAL PRN (21:50)
[2017-12-09] MEDS: Donepezil 10mg tab ORAL SCH (21:50)
[2017-12-10 03:39] VITALS: BP 126/52
[2017-12-10 08:12] VITALS: BP 137/72
[2017-12-10] MEDS: Metoprolol Succinate XL 25mg tab ORAL SCH (08:21)
[2017-12-10] MEDS: HYDROcodone/Acetamin 10/325 tab ORAL PRN ×2 (08:22→21:15)
[2017-12-10] MEDS: Enoxaparin 40mg Inj SUBQ SCH (08:30)
[2017-12-10 11:31] VITALS: BP 132/65
[2017-12-10 15:49] VITALS: BP 135/68
--- NOTE | 2017-12-10 17:30 | History and Physical Report ---
DATE OF ADMISSION: 12/09/2017 CHIEF COMPLAINT: Failure to thrive, hip pain and right hip pressure ulcer. HISTORY OF PRESENT ILLNESS: The patient is a pleasant male, who recently sustained a some type of a fall and right hip fracture. He underwent a ORIF, which he tolerated well. It was recommended the patient go to a penitentiary facility, but the family declined as they felt there is a help at home the patient's [id number], the patient has been doing well except for some pain. He also was noted to develop a right hip pressure ulcer below the old incision. The patient is now admitted for further evaluation and care. He is confused at baseline. He is unable to provide any history. PAST MEDICAL HISTORY: As above. He has a history of hypertension, pacemaker, history of dementia, and history of orthostatic hypotension. PAST SURGICAL HISTORY: As above. CURRENT MEDICATIONS: Reconciled and reviewed. ALLERGIES: None. FAMILY HISTORY: Significant for cancer. SOCIAL HISTORY: Negative for tobacco, ethanol, or drugs. REVIEW OF SYSTEMS: GENERAL: He is confused and disorganized. The patient is well developed male, in no apparent distress. VITAL SIGNS: Temperature 98, pulse 84, respirations 20, and blood pressure 137/72. HEART: Regular rate and rhythm. LUNGS: Clear. ABDOMEN: Soft, nontender, and nondistended. EXTREMITIES: Without clubbing or cyanosis. Over the right hip, there is a well-healed incision, a 5 x 5 centimeter stage 2 to 3 ulcers noted that is clean and pink. LABORATORY AND DIAGNOSTIC DATA: Labs, sodium 138, creatinine was 1.3, and potassium 4.4. CK was 1036. White count was 8, hemoglobin 12, hematocrit 39, and platelets of 305. UA was clear. ASSESSMENT: This is a pleasant male with complaints of a right hip pressure ulcer, mild rhabdomyolysis, failure to thrive, recent right hip arthroplasty, hypertension, orthostasis, and dementia. PLAN: IV hydration. Cardiology followup. Wound consultation. DVT and stress ulcer prophylaxis. Continue outpatient blood pressure regimen. Dennis Burger M.D. DR: AUGUST JOB#: [id number] CC:
--- NOTE | 2017-12-10 17:58 | Consultation ---
History of Present Illness General Date patient seen: Dec 10, 2017 Time patient seen: 17:51 Chief Complaint: Pain Referring physician: Dr. Burger Reason for Consultation: Right posterior hip pressure ulcer Present Illness HPI Asked to evaluate this 82yom who was [place] [facility] [place]. Patient underwent ORIF 1-2 weeks ago at [facility] and was d/c'd to home after family refused SNF placement. He was admitted back for pain in the right hip as well as dehydration. His xrays in the ER were - for new fxs. He was noted to have a wound on presentation to the ER yesterday. He was admitted for further evaluation. He has no leukocytosis and no f/c. Allergies: Coded Allergies: No Known Allergies (Unverified , 05/04/12) Medication History Scheduled Amiodarone Hcl* (Cordarone*), 200 MG ORAL DAILY Amlodipine Besylate (Norvasc), 2.5 MG ORAL BID Amlodipine Besylate* (Amlodipine Besylate*), 2.5 MG PO DAILY, (Reported) Aspirin (Aspirin), 81 MG PO DAILY, (Reported) Atenolol (Tenormin), 25 MG PO DAILY, (Reported) Donepezil Hcl* (Aricept*), 5 MG PO DAILY, (Reported) Donepezil Hcl* (Donepezil Hcl*), 10 MG ORAL DAILY, (Reported) Enoxaparin* (Lovenox*), 40 MG SUBQ Q24H Finasteride (Finasteride), 5 PO DAILY, (Reported) Losartan Potassium* (Cozaar*), 50 MG PO DAILY, (Reported) Losartan Potassium* (Cozaar*), 50 MG PO DAILY, (Reported) Metoprolol Succinate* (Metoprolol Succinate*), 25 MG ORAL DAILY, (Reported) Metoprolol Tartrate* (Metoprolol Tartrate*), 50 MG PO Q12H, (Reported) Midodrine (Midodrine HCl), 10 MG ORAL THREE TIMES A DAY Pantoprazole Sodium (Protonix), 40 MG PO DAILY, (Reported) Quetiapine Fumarate* (Seroquel*), 25 MG PO BID, (Reported) Simvastatin (Zocor), 20 MG PO QHS, (Reported) Tamsulosin HCl (Flomax), 0.4 MG PO DAILY, (Reported) Miscellaneous Medications Tamsulosin Hcl (Tamsulosin Hcl*), (Reported) Patient History History Provided By: Patient, Medical Record Healthcare decision maker EDGAR STRATTON Resuscitation status Full Code Advanced Directive on File No Review of Systems Constitutional: Reports: no symptoms Eye: Reports: no symptoms Respiratory: Reports: no symptoms Gastrointestinal: Reports: no symptoms Musculoskeletal: Reports: see HPI Skin: Reports: see HPI Psychiatric: Reports: no symptoms Physical Exam General Appearance: no apparent distress, alert Lines, tubes and drains: peripheral, wilkinson cath Respiratory/Chest: no respiratory distress Abdomen: non tender, soft Extremities: no edema Skin Exam: other - Unstageable ulcer of the right posterior hip, posterior to the trochanter. Well healing right ORIF incision. No erythema or warmth. No fluctuance. Last 24 Hour Vital Signs Date Time Temp Pulse Resp B/P (MAP) Pulse Ox O2 Delivery O2 Flow Rate FiO2 12/10/17 15:49 98.0 68 20 135/68 99 12/10/17 11:31 98.2 64 20 132/65 99 12/10/17 09:21 97.8 12/10/17 08:21 82 137/72 12/10/17 08:12 97.8 82 20 137/72 94 12/10/17 03:39 97.5 83 19 126/52 92 Room Air 80 12/09/17 23:41 97.9 80 20 134/54 100 Room Air 78 12/09/17 19:19 98.6 80 20 137/69 97 Room Air 76 Intake and Output 12/09/17 12/10/17 19:00 07:00 Intake Total 150 ml 240 ml Output Total 250 ml Balance -100 ml 240 ml Intake Oral 240 ml IV Total 150 ml Output Urine Total 250 ml # Voids 3 Laboratory Tests Test 12/10/17 09:35 Sodium Level Pending Potassium Level Pending Chloride Level Pending Carbon Dioxide Level Pending Blood Urea Nitrogen Pending Creatinine Pending Estimat Glomerular Filtration Rate Pending Glucose Level Pending Calcium Level Pending Total Bilirubin Pending Aspartate Amino Transf (AST/SGOT) Pending Alanine Aminotransferase (ALT/SGPT) Pending Alkaline Phosphatase Pending Total Creatine Kinase Pending Total Protein Pending Albumin Pending Globulin Pending Height (Feet): 6 Height (Inches): 1.00 Weight (Pounds): 210 Medications Current Medications Medications (Trade) Dose Ordered Sig/Yamile Route PRN Reason Start Time Stop Time Status Last Admin Dose Admin Acetaminophen/ Hydrocodone Bitart (Paradox 10/325) 1 tab Q4H PRN ORAL Severe Pain (Scale 7-10) 12/09/17 18:30 12/16/17 18:29 12/10/17 08:22 Amlodipine Besylate (Norvasc) 2.5 mg BID ORAL 12/10/17 21:00 01/09/18 20:59 Donepezil HCl (Aricept) 10 mg QHS ORAL 12/09/17 21:00 01/08/18 20:59 12/09/17 21:50 Enoxaparin Sodium (Lovenox) 40 mg DAILY SUBQ 12/10/17 09:00 01/09/18 08:59 12/10/17 08:30 Finasteride (Proscar) 5 mg DAILY ORAL 12/10/17 09:00 01/09/18 08:59 12/10/17 08:20 Metoprolol Succinate (Toprol XL) 25 mg DAILY ORAL 12/10/17 09:00 01/09/18 08:59 12/10/17 08:21 Midodrine (Pro-Amatine) 10 mg THREE TIMES A DAY ORAL 12/10/17 21:00 01/09/18 20:59 Tamsulosin HCl (Flomax) 0.4 mg BEDTIME ORAL 12/09/17 21:00 01/08/18 20:59 12/09/17 21:49 Assessment/Plan Status: stable Assessment/Plan Patient s/p recent right ORIF, now with ulcer posterior to the incision line. Likely due to pressure with some shear effect. Ke y is offloading to avoid worsening of the ulcer. No clinical signs of infection. No need for surgical intervention at this time. Recommend keeping the ulcer bed from drying out and so agree with use of hydrogel. When patient is discharged, if discharged back to home will make arrangements for f/u with me at the outpatient wound center at [place] for continuity of care. Thank you for allowing me to participate in this patient's care. TYSON FELDMAN Dec 10, 2017 17:58
[2017-12-10 19:30] VITALS: BP 109/53
--- NOTE | 2017-12-10 19:49 | Wound Care Consultation ---
Wound Assessment Wound Assessment #1: Wound Number: 1 Wound Present on Admission: Yes New Wound: No Status Change of Wound: No Wound Location Body Site Modif: mid Wound Location Body Site: sacral Wound Type: pressure ulcer Aliza Test: Does not Aliza Pressure Ulcer Stage: III Wound Thickness: Full Thickness Wound Length: 2.0 Wound Width: 1.5 Wound Depth: 0.2 Percent of Wound [place]/Red: 70 Percent of Wound Purple/Maroon: 30 Wound Drainage Description: Serosanguineous Wound Drainage Amount: Scant Wound Drainage Odor: None/Absent Tissue Surrounding Wound: Erythemic Wound General Appearance: Reddened, Draining Wound Assessment #2: Wound Number: 2 Wound Present on Admission: Yes New Wound: No Status Change of Wound: No Wound Location Body Site Modif: right Wound Location Body Site: buttocks Wound Type: pressure ulcer Aliza Test: Does not Aliza Pressure Ulcer Stage: II Wound Thickness: Partial Thickness Wound Length: 5.5 Wound Width: 5.5 Wound Depth: less than 0.1 Percent of Wound [place]/Red: 100 Wound Drainage Description: Serosanguineous Wound Drainage Amount: Scant Wound Drainage Odor: None/Absent Tissue Surrounding Wound: Erythemic Wound General Appearance: Reddened, Draining Wound Assessment #3: Wound Number: 3 Wound Present on Admission: Yes New Wound: No Status Change of Wound: No Wound Location Body Site Modif: right, lateral Wound Location Body Site: thigh Wound Type: pressure ulcer Aliza Test: Does not Aliza Pressure Ulcer Stage: Deep Tissue Injury Wound Thickness: Full Thickness Wound Length: 0.5 Wound Width: 4.5 Wound Depth: utd Percent of Wound Purple/Maroon: 100 Wound Drainage Amount: None Wound Drainage Odor: None/Absent Tissue Surrounding Wound: Intact Wound General Appearance: Reddened - purple Wound Assessment #4: Wound Number: 4 Wound Present on Admission: Yes New Wound: No Status Change of Wound: No Wound Location Body Site Modif: mid Wound Location Body Site: other - Sacrococcygeal Wound Type: pressure ulcer Aliza Test: Does not Aliza Pressure Ulcer Stage: Deep Tissue Injury Wound Thickness: Full Thickness Wound Length: 5.0 Wound Width: 4.5 Wound Depth: utd Percent of Wound Purple/Maroon: 100 Wound Drainage Amount: None Wound Drainage Odor: None/Absent Tissue Surrounding Wound: Erythemic Wound General Appearance: Reddened - maroon Wound Assessment #5: Wound Number: 5 Wound Present on Admission: Yes New Wound: No Status Change of Wound: No Wound Location Body Site Modif: right Wound Location Body Site: trochanter Wound Type: scar Aliza Test: Does not Aliza Wound Thickness: Full Thickness Wound Length: 3.5 Wound Width: 3.0 Wound Depth: utd Other Colors Identified: leary Percentage Other Color: 100 Wound Drainage Amount: None Wound Drainage Odor: None/Absent Tissue Surrounding Wound: Intact Wound General Appearance: Asymptomatic Wound Comment #1 Right trochanter full thickness scar tissue #2 Right buttock open blister stage II pressure ulcer #3 Right lateral thigh DTI pressure ulcer #4 Sacral stage II pressure ulcer #5 Sacrococcygeal DTI pressure ulcer Recommendation -Local wound care per protocol -Keep clean and dry -Turn and reposition -Optimize nutrition -Low air loss mattress -Offload both heels -Heel protector on both heels -Assess and f/u accordingly for any changes BIRGIT DUEÑAS RN Dec 10, 2017 19:49
[2017-12-10] MEDS: Midodrine 10mg tab ORAL SCH (21:14)
[2017-12-10] MEDS: Donepezil 10mg tab ORAL SCH (21:14)
[2017-12-10] MEDS: Tamsulosin 0.4mg cap ORAL SCH (21:15)
[2017-12-10 23:31] VITALS: BP 80/35
[2017-12-11 00:24] VITALS: BP 99/69
[2017-12-11 03:31] VITALS: BP 123/50
--- NOTE | 2017-12-11 08:03 | General Progress Note ---
Assessment/Plan Problem List: (1) Syncope ICD Codes: R55 - Syncope and collapse SNOMED: 934974547 (2) Pacemaker ICD Codes: Z95.0 - Pacemaker SNOMED: 336704208 (3) Decubitus skin ulcer ICD Codes: L89.90 - Pressure ulcer of unspecified site, unspecified stage SNOMED: 629864239 Qualifiers: Qualified Codes: L89.212 - Pressure ulcer of right hip, stage 2 (4) Right hip pain ICD Codes: M25.551 - Pain in right hip SNOMED: 88704645 Status: stable, progressing Assessment/Plan pain rx ct hip refer to snf wound care Subjective ROS Limited/Unobtainable: Yes Constitutional: Reports: malaise, weakness HEENT: Reports: no symptoms Cardiovascular: Reports: no symptoms Respiratory: Reports: no symptoms Gastrointestinal/Abdominal: Reports: no symptoms Genitourinary: Reports: no symptoms Neurologic/Psychiatric: Reports: pre-existing deficit Endocrine: Reports: no symptoms Hematologic/Lymphatic: Reports: anemia Allergies: Coded Allergies: No Known Allergies (Unverified , 05/04/12) All Systems: reviewed and negative except above Subjective no events. wound/plastics appreciated. family would like pt referred to snf Objective Last 24 Hour Vital Signs Date Time Temp Pulse Resp B/P (MAP) Pulse Ox O2 Delivery O2 Flow Rate FiO2 12/11/17 03:31 97.7 63 20 123/50 98 Room Air 62 12/11/17 00:24 97.9 60 17 99/69 94 Room Air 60 12/10/17 23:31 97.9 60 17 80/35 91 Room Air 80 12/10/17 22:14 98.1 12/10/17 21:14 71 122/55 12/10/17 19:30 98.1 66 18 109/53 97 Room Air 74 12/10/17 15:49 98.0 68 20 135/68 99 12/10/17 11:31 98.2 64 20 132/65 99 12/10/17 08:21 82 137/72 12/10/17 08:12 97.8 82 20 137/72 94 Intake and Output 12/10/17 12/11/17 19:00 07:00 Intake Total 600 ml Output Total 150 ml Balance 450 ml Intake Oral 600 ml Output Urine Total 150 ml # Voids 2 Laboratory Tests 12/10/17 09:35: Sodium Level [Pending], Potassium Level [Pending], Chloride Level [Pending], Carbon Dioxide Level [Pending], Blood Urea Nitrogen [Pending], Creatinine [ Pending], Estimat Glomerular Filtration Rate [Pending], Glucose Level [Pending] , Calcium Level [Pending], Total Bilirubin [Pending], Aspartate Amino Transf ( AST/SGOT) [Pending], Alanine Aminotransferase (ALT/SGPT) [Pending], Alkaline Phosphatase [Pending], Total Creatine Kinase [Pending], Total Protein [Pending] , Albumin [Pending], Globulin [Pending] Height (Feet): 6 Height (Inches): 1.00 Weight (Pounds): 210 General Appearance: WD/WN, alert Neck: supple Cardiovascular: normal rate Respiratory/Chest: chest wall non-tender, lungs clear, normal breath sounds Abdomen: normal bowel sounds, non tender, soft, no organomegaly Edema: no edema noted Arm (L), no edema noted Arm (R), no edema noted Leg (L), no edema noted Leg (R), no edema noted Pedal (L), no edema noted Pedal (R), no edema noted Generalized Neurologic: alert, disoriented YOU ROMO Dec 11, 2017 08:03
[2017-12-11 08:14] VITALS: BP 133/61
[2017-12-11] MEDS: Metoprolol Succinate XL 25mg tab ORAL SCH (08:56)
[2017-12-11] MEDS: Midodrine 10mg tab ORAL SCH ×3 (08:56→18:07)
[2017-12-11] MEDS: Enoxaparin 40mg Inj SUBQ SCH (09:02)
[2017-12-11 12:17] VITALS: BP 136/78
--- NOTE | 2017-12-11 15:20 | Diagnostic Imaging Report ---
Indication: Abdominal pain and right hip pain Technique: Spiral acquisitions obtained through the abdomen and pelvis. Patient given enteric contrast. No IV contrast utilized, per referring physician request.. Multiplanar reconstructions were generated. Total dose length product 528.68 mGycm. CTDIvol(s) 11.66 mGy. Dose reduction achieved using automated exposure control Comparison: None Findings: There is some retained contrast in the distal esophagus, and equivocal wall thickening of the distal esophagus. Stomach and duodenum are unremarkable. The appendix is not definitely identified, but there are no findings to suggest acute appendicitis. Contrast is seen throughout the entirety of the small bowel, and reaches as far distally as the ascending colon. Small bowel is nondistended and there is no small bowel wall thickening. There is equivocal distal colonic diverticulosis. No evidence of diverticulitis. No free or loculated intraperitoneal air or fluid There is fusiform aneurysmal dilatation of the abdominal aorta and a more focal eccentric saccular component proximally. Maximum dimension is 3.9 cm. No definite evidence of leakage or rupture. There may be some focal components of dissection distally as well. The common iliac arteries are ectatic bilaterally. That on the left is borderline aneurysmal, measuring up to 2 cm diameter. There is an inferior vena cava filter in place in the expected position. Lack of IV contrast limits assessment of the solid organs. The liver is unremarkable. Contrast versus small gallstones versus milk of calcium bile is seen dependently within the gallbladder fundus. No biliary ductal dilatation. The pancreas is somewhat atrophic. The spleen, adrenals are unremarkable. There is evidence of a posterior cortical scar in the left kidney. There is a subcentimeter upper pole low-attenuation lesion in the left kidney. The bones demonstrate surgical hardware in the right hip. There is an old healed fracture deformity of the left hip. Multiple osteosclerotic foci are demonstrated,, including within T9, T10, T11 L1, and bilateral iliac wings. There is a a wedge/burst compression fracture deformity of the L5 vertebral body with approximately 6 mm of posterior retropulsion. Less severe superior endplate compression fracture deformities of L2 and L3 are also demonstrated. There is degenerative spondylosis The included lung bases demonstrate some scarring and/or atelectasis, bilateral but predominantly on the right Impression: Retained contrast in the distal esophagus, may indicate reflux or dysmotility Equivocal distal esophageal wall thickening, if real possibly indicating esophagitis Equivocal colonic diverticulosis. No evidence of diverticulitis 3.9 cm diameter abdominal aortic aneurysm. No definite evidence of leakage or rupture. Ectasia of the bilateral common iliac arteries, bordering on aneurysmal dilatation on the left Multiple osteosclerotic foci in the bones, concerning for metastatic neoplasm Evidence of prior right hip surgical repair and old healed left hip fracture Multiple vertebral body compression fractures, as detailed above including wedge/burst compression fracture deformity of the L5 vertebral body, L2 and L3 superior endplate compression fractures Dense material within the gallbladder, could represent hepatic excretion of contrast, milk of calcium bile, or small gallstones Subcentimeter low-attenuation left renal lesion, too small to characterize, most likely benign simple cyst Inferior vena cava filter Other findings as noted, including basilar pulmonary parenchymal scarring and/or atelectasis, degenerative spondylosis, left renal cortical scarring The CT scanner at [facility] is accredited by the [employer] and the scans are performed using protocols designed to limit radiation exposure to as low as reasonably achievable to attain images of sufficient resolution adequate for diagnostic evaluation.
[2017-12-11 16:00] VITALS: BP 126/62
--- NOTE | 2017-12-11 17:39 | Cardiology Report ---
APPROVED REPORT EKG Measurement Heart [id number] Normal sinus rhythm Nonspecific T wave abnormality Abnormal ECG
[2017-12-11 20:00] VITALS: BP 126/60
[2017-12-11] MEDS: Donepezil 10mg tab ORAL SCH (21:15)
[2017-12-11] MEDS: Tamsulosin 0.4mg cap ORAL SCH (21:15)
[2017-12-12] VITALS: BP_SYST 105; BP_SYST 126; BP_DIAS 58; BP_DIAS 60
[2017-12-12 08:00] VITALS: BP 115/60
[2017-12-12] MEDS: Midodrine 10mg tab ORAL SCH ×3 (08:45→17:34)
[2017-12-12] MEDS: Metoprolol Succinate XL 25mg tab ORAL SCH (08:47)
[2017-12-12] MEDS: Enoxaparin 40mg Inj SUBQ SCH (08:49)
[2017-12-12 12:00] VITALS: BP 138/66
[2017-12-12] MEDS ORDERED: Morphine Sulfate 2mg/ml Inj IV STA (12:53)
--- NOTE | 2017-12-12 13:03 | General Progress Note ---
Assessment/Plan Problem List: (1) Syncope ICD Codes: R55 - Syncope and collapse SNOMED: 290042962 (2) Pacemaker ICD Codes: Z95.0 - Pacemaker SNOMED: 884827598 (3) Decubitus skin ulcer ICD Codes: L89.90 - Pressure ulcer of unspecified site, unspecified stage SNOMED: 993623294 Qualifiers: Qualified Codes: L89.212 - Pressure ulcer of right hip, stage 2 (4) Right hip pain ICD Codes: M25.551 - Pain in right hip SNOMED: 15501862 Status: stable, progressing Assessment/Plan pain rx ct noted- +bone lesions- ?met ca check tumor markers repeat labs refer to snf wound care Subjective ROS Limited/Unobtainable: No Constitutional: Reports: malaise, weakness HEENT: Reports: no symptoms Cardiovascular: Reports: no symptoms Respiratory: Reports: no symptoms Gastrointestinal/Abdominal: Reports: no symptoms Genitourinary: Reports: no symptoms Neurologic/Psychiatric: Reports: pre-existing deficit Endocrine: Reports: no symptoms Hematologic/Lymphatic: Reports: no symptoms Allergies: Coded Allergies: No Known Allergies (Unverified , 05/04/12) All Systems: reviewed and negative except above Subjective no events. wound/plastics appreciated. family would like pt referred to snf. denies pain. Objective Last 24 Hour Vital Signs Date Time Temp Pulse Resp B/P (MAP) Pulse Ox O2 Delivery O2 Flow Rate FiO2 12/12/17 12:00 98.1 71 20 138/66 96 12/12/17 08:47 72 115/60 12/12/17 08:47 72 115/60 12/12/17 08:00 97.9 72 20 115/60 96 12/12/17 00:00 97.7 70 18 105/58 91 12/11/17 20:00 98.1 75 18 126/60 98 12/11/17 19:43 98.1 12/11/17 18:07 74 126/62 12/11/17 16:00 98.1 74 20 126/62 98 Intake and Output 12/11/17 12/12/17 19:00 07:00 Intake Total 240 ml Balance 240 ml Intake Oral 240 ml # Voids 3 Height (Feet): 6 Height (Inches): 1.00 Weight (Pounds): 210 Objective General Appearance: WD/WN, alert Neck: supple Cardiovascular: normal rate Respiratory/Chest: chest wall non-tender, lungs clear, normal breath sounds Abdomen: normal bowel sounds, non tender, soft, no organomegaly Edema: no edema noted Arm (L), no edema noted Arm (R), no edema noted Leg (L), no edema noted Leg (R), no edema noted Pedal (L), no edema noted Pedal (R), no edema noted Generalized Neurologic: alert, disoriented YOU ROMO Dec 12, 2017 13:03
[2017-12-12 16:04] VITALS: BP 136/61
[2017-12-12 20:00] VITALS: BP 148/70
[2017-12-12] MEDS: Donepezil 10mg tab ORAL SCH (21:29)
[2017-12-12] MEDS: Tamsulosin 0.4mg cap ORAL SCH (21:29)
[2017-12-13] VITALS: BP 149/77
[2017-12-13 04:00] VITALS: BP 142/79
[2017-12-13 07:54] LABS: ALANINE AMINOTRANSFERASE 35 U/L (12-78); ALBUMIN/GLOBULIN RATIO 0.4 (1.0-2.7); ALKALINE PHOSPHATASE 79 U/L (46-116); ANION GAP 1 mmol/L (5-15); ASPARTATE AMINO TRANSFERASE 33 U/L (15-37); BILIRUBIN,TOTAL 0.5 MG/DL (0.2-1.0); BLOOD UREA NITROGEN 11 mg/dL (7-18); CALCIUM 9.3 MG/DL (8.5-10.1); CARBON DIOXIDE 32 MMOL/L (21-32); CHLORIDE 104 MMOL/L (98-107); CREATININE 0.9 MG/DL (0.55-1.30); SODIUM 137 MMOL/L (136-145)
[2017-12-13 08:00] VITALS: BP 122/61
[2017-12-13] MEDS: Metoprolol Succinate XL 25mg tab ORAL SCH (09:06)
[2017-12-13] MEDS: Midodrine 10mg tab ORAL SCH ×3 (09:06→17:28)
[2017-12-13] MEDS: Enoxaparin 40mg Inj SUBQ SCH (09:10)
[2017-12-13] MEDS: HYDROcodone/Acetamin 10/325 tab ORAL PRN ×2 (09:15→23:48)
--- NOTE | 2017-12-13 10:51 | General Progress Note ---
Assessment/Plan Problem List: (1) Syncope ICD Codes: R55 - Syncope and collapse SNOMED: 431844478 (2) Pacemaker ICD Codes: Z95.0 - Pacemaker SNOMED: 086126987 (3) Decubitus skin ulcer ICD Codes: L89.90 - Pressure ulcer of unspecified site, unspecified stage SNOMED: 968456883 Qualifiers: Qualified Codes: L89.212 - Pressure ulcer of right hip, stage 2 (4) Right hip pain ICD Codes: M25.551 - Pain in right hip SNOMED: 93809802 Status: stable Assessment/Plan pain rx ct noted- +bone lesions- ?met ca psa 107 repeat labs refer to snf wound care Subjective ROS Limited/Unobtainable: No Constitutional: Reports: malaise, weakness HEENT: Reports: no symptoms Cardiovascular: Reports: no symptoms Respiratory: Reports: no symptoms Gastrointestinal/Abdominal: Reports: no symptoms Genitourinary: Reports: no symptoms Neurologic/Psychiatric: Reports: no symptoms Endocrine: Reports: no symptoms Hematologic/Lymphatic: Reports: no symptoms Allergies: Coded Allergies: No Known Allergies (Unverified , 05/04/12) All Systems: reviewed and negative except above Subjective no events. wound/plastics appreciated. family would like pt referred to snf. denies pain. await word from [facility]. psa 107 noted +mets on ct Objective Last 24 Hour Vital Signs Date Time Temp Pulse Resp B/P (MAP) Pulse Ox O2 Delivery O2 Flow Rate FiO2 12/13/17 10:14 98.1 12/13/17 09:06 70 122/61 12/13/17 09:06 70 122/61 12/13/17 08:00 98.1 70 19 122/61 100 12/13/17 04:00 98.4 20 142/79 96 Room Air 12/13/17 00:00 98.1 20 149/77 98 Room Air 12/12/17 20:00 98.1 77 19 148/70 94 Room Air 12/12/17 17:33 73 136/61 12/12/17 16:04 98.1 73 20 136/61 96 12/12/17 12:00 98.1 71 20 138/66 96 Intake and Output 12/12/17 12/13/17 19:00 07:00 Intake Total 330 ml 60 ml Balance 330 ml 60 ml Intake Oral 330 ml 60 ml # Voids 3 2 Laboratory Tests 12/13/17 06:30: Sodium Level 137, Potassium Level 4.0, Chloride Level 104, Carbon Dioxide Level 32, Anion Gap 1L, Blood Urea Nitrogen 11, Creatinine 0.9, Estimat Glomerular Filtration Rate , Glucose Level 104, Calcium Level 9.3, Total Bilirubin 0.5, Aspartate Amino Transf (AST/SGOT) 33, Alanine Aminotransferase (ALT/SGPT) 35, Alkaline Phosphatase 79, Total Protein 6.7, Albumin 2.0L, Globulin 4.7, Albumin/ Globulin Ratio 0.4L, Prostate Specific Antigen 107.47H Height (Feet): 6 Height (Inches): 1.00 Weight (Pounds): 210 Objective General Appearance: WD/WN, alert Neck: supple Cardiovascular: normal rate Respiratory/Chest: chest wall non-tender, lungs clear, normal breath sounds Abdomen: normal bowel sounds, non tender, soft, no organomegaly Edema: no edema noted Arm (L), no edema noted Arm (R), no edema noted Leg (L), no edema noted Leg (R), no edema noted Pedal (L), no edema noted Pedal (R), no edema noted Generalized Neurologic: alert, disoriented YOU ROMO Dec 13, 2017 10:51
[2017-12-13 12:00] VITALS: BP 104/58
[2017-12-13 15:31] VITALS: BP 121/67
[2017-12-13] MEDS ORDERED: Milk of Magnesia 30ml Ud ORAL PRN (19:00)
[2017-12-13] MEDS ORDERED: Fleet's Enema 133ml RECTAL PRN (19:00)
--- NOTE | 2017-12-13 19:00 | Consultation ---
DATE OF CONSULTATION: 12/13/2017 CONSULTING PHYSICIAN: Sunny Odell M.D. REFERRING PHYSICIAN: Dennis Burger M.D. REASON FOR CONSULTATION: Evaluation of elevated serum PSA. HISTORY OF PRESENT ILLNESS: This is an 82-year-old gentleman was admitted to the hospital because of failure to thrive, left hip pain and pressure ulcer. He was noted to have elevation of his serum PSA. Urology evaluation has been requested. The patient is a poor historian. Most of the history was obtained from the chart. I did talk to the nursing staff and apparently the patient has been able to urinate and he is incontinent, previous prostate surgery is unknown. PAST MEDICAL HISTORY: Significant for hypertension, coronary artery disease, dementia. PAST SURGICAL HISTORY: He has had a pacemaker. Other surgeries are unknown. CURRENT MEDICATIONS: Here in the hospital, the patient is on Percocet, T[place], Norvasc, ProAmatine, Lovenox, Toprol, Proscar, Flomax, Aricept. ALLERGIES: No known drug allergies. SOCIAL HISTORY: Smoking history is unknown. FAMILY HISTORY: Unable to obtain. REVIEW OF SYSTEMS: Unable to obtain. PHYSICAL EXAMINATION: GENERAL: This is an elderly male, slightly cachectic,no acute distress. VITAL SIGNS: Temperature is 98.1, blood pressure 122/61, pulse 70, respirations are 19. HEENT: Normocephalic. NECK: Supple. ABDOMEN: Soft. No suprapubic fullness. There is no CVA tenderness. RECTAL: Reveals almost empty prostatic fossa. I am not able to feel any obvious prosthetic tissue or induration. EXTREMITIES: Slightly contracted. LABORATORY DATA: BUN is 11 and creatinine 0.9, and potassium 4.0. His PSA and white count is 8.7, hemoglobin 12.4, and platelets are 305. UA showed 0 to 2 RBCs, 1+ dip positive for blood. DIAGNOSTIC IMAGING STUDIES: The patient had a CT scan of the abdomen and pelvis, there was mention of possible small renal cyst. IMPRESSION: 1. Markedly elevated serum PSA. 2. Rule out prostatic carcinoma. 3. Urinary incontinence. 4. Probable neurogenic bladder. 5. Microhematuria. 6. Renal cyst. 7. Questionable benign prostatic hypertrophy. PLAN AND DISCUSSION: Again as noted above, the patient does have significant elevation of serum PSA which is worrisome for advanced prostate cancer. At some point, the patient may need to have prostate biopsy for definitive diagnosis. We also need to get his outside records or any old records. He does have lower urinary tract symptoms and questionable BPH although the prostate is minimally palpable by exam. He is currently on Flomax and Proscar. At some point, he will need to have cystoscopy to evaluate his lower urinary tract. I will follow the patient and recommendations will be forthcoming. Thank you, Dr. Burger, for asking me to participate in this consultation. Sunny Odell M.D. DR: Сергей JOB#: [id number] CC:
[2017-12-13] MEDS: Docusate 250mg cap ORAL SCH (19:01)
[2017-12-13 20:00] VITALS: BP 129/63
[2017-12-13] MEDS: Tamsulosin 0.4mg cap ORAL SCH (21:13)
[2017-12-13] MEDS: Donepezil 10mg tab ORAL SCH (21:13)
[2017-12-14] VITALS: BP 128/52
[2017-12-14 04:00] VITALS: BP 129/76
[2017-12-14 08:45] VITALS: BP 121/54
[2017-12-14] MEDS: Metoprolol Succinate XL 25mg tab ORAL SCH (09:00)
--- NOTE | 2017-12-14 09:15 | General Progress Note ---
Assessment/Plan Problem List: (1) Syncope ICD Codes: R55 - Syncope and collapse SNOMED: 652650849 (2) Pacemaker ICD Codes: Z95.0 - Pacemaker SNOMED: 354918150 (3) Decubitus skin ulcer ICD Codes: L89.90 - Pressure ulcer of unspecified site, unspecified stage SNOMED: 765591622 Qualifiers: Qualified Codes: L89.212 - Pressure ulcer of right hip, stage 2 (4) Right hip pain ICD Codes: M25.551 - Pain in right hip SNOMED: 09883815 Status: stable, progressing Assessment/Plan pain rx ct noted- +bone lesions- ?met ca psa 107 repeat labs family now wants to take pt home dc planning once bed arrives Subjective ROS Limited/Unobtainable: Yes Constitutional: Reports: malaise, weakness HEENT: Reports: no symptoms Cardiovascular: Reports: no symptoms Respiratory: Reports: no symptoms Gastrointestinal/Abdominal: Reports: no symptoms Genitourinary: Reports: no symptoms Neurologic/Psychiatric: Reports: pre-existing deficit Endocrine: Reports: no symptoms Hematologic/Lymphatic: Reports: no symptoms Allergies: Coded Allergies: No Known Allergies (Unverified , 05/04/12) All Systems: reviewed and negative except above Subjective no events. family wants to take pt home. no fever or chills. d/w dtr in law. pt with known history of prostate ca Objective Last 24 Hour Vital Signs Date Time Temp Pulse Resp B/P (MAP) Pulse Ox O2 Delivery O2 Flow Rate FiO2 12/14/17 08:45 98.2 63 18 121/54 100 12/14/17 04:00 97.5 66 19 129/76 97 Room Air 12/14/17 00:00 97.9 64 20 128/52 97 12/13/17 20:00 97.7 67 20 129/63 98 Room Air 12/13/17 17:28 67 121/67 12/13/17 17:02 Room Air 12/13/17 15:31 97.6 67 20 121/67 99 12/13/17 13:07 Room Air 12/13/17 12:00 97.9 64 20 104/58 100 12/13/17 10:14 98.1 Intake and Output 12/13/17 12/14/17 19:00 07:00 Intake Total 960 ml Balance 960 ml Intake Oral 960 ml # Voids 6 3 # Bowel Movements 2 Height (Feet): 6 Height (Inches): 1.00 Weight (Pounds): 210 Objective General Appearance: WD/WN, alert Neck: supple Cardiovascular: normal rate Respiratory/Chest: chest wall non-tender, lungs clear, normal breath sounds Abdomen: normal bowel sounds, non tender, soft, no organomegaly Edema: no edema noted Arm (L), no edema noted Arm (R), no edema noted Leg (L), no edema noted Leg (R), no edema noted Pedal (L), no edema noted Pedal (R), no edema noted Generalized Neurologic: alert, disoriented YOU ROMO Dec 14, 2017 09:15
[2017-12-14] MEDS: Docusate 250mg cap ORAL SCH ×2 (09:18→18:26)
[2017-12-14] MEDS: Midodrine 10mg tab ORAL SCH ×3 (09:19→18:26)
[2017-12-14] MEDS: Enoxaparin 40mg Inj SUBQ SCH (09:22)
[2017-12-14 09:25] VITALS: BP 117/57
--- NOTE | 2017-12-14 10:09 | Urology Progress Note ---
Assessment/Plan Assessment/Plan 1. Markedly elevated serum PSA. 2. Rule out prostatic carcinoma. 3. Urinary incontinence. 4. Probable neurogenic bladder. 5. Microhematuria. 6. Renal cyst. 7. Questionable benign prostatic hypertrophy. monitor clinically flomax and proscar consider checking PVR poss prostate biopsy later Subjective Allergies: Coded Allergies: No Known Allergies (Unverified , 05/04/12) Subjective all noted, incontinent of urine Objective Last 24 Hour Vital Signs Date Time Temp Pulse Resp B/P (MAP) Pulse Ox O2 Delivery O2 Flow Rate FiO2 12/14/17 09:25 69 117/57 12/14/17 08:45 98.2 63 18 121/54 100 12/14/17 04:00 97.5 66 19 129/76 97 Room Air 12/14/17 00:00 97.9 64 20 128/52 97 12/13/17 20:00 97.7 67 20 129/63 98 Room Air 12/13/17 17:28 67 121/67 12/13/17 17:02 Room Air 12/13/17 15:31 97.6 67 20 121/67 99 12/13/17 13:07 Room Air 12/13/17 12:00 97.9 64 20 104/58 100 12/13/17 10:14 98.1 Intake and Output 12/13/17 12/14/17 19:00 07:00 Intake Total 960 ml Balance 960 ml Intake Oral 960 ml # Voids 6 3 # Bowel Movements 2 Microbiology Date/Time Source Procedure Growth Status 12/09/17 13:50 Nasal Nares MRSA Culture - Final NO METHICILLIN RESISTANT STAPH AUREUS... Complete 12/09/17 13:50 Rectum VRE Culture - Final NO VANCOMYCIN RESISTANT ENTEROCOCCUS ... Complete Current Medications Medications (Trade) Dose Ordered Sig/Yamile Route PRN Reason Start Time Stop Time Status Last Admin Dose Admin Acetaminophen/ Hydrocodone Bitart ([place]field 10/325) 1 tab Q4H PRN ORAL Moderate Pain (Pain Scale 4-6) 12/11/17 08:15 12/16/17 18:29 12/13/17 23:48 Amlodipine Besylate (Norvasc) 2.5 mg BID ORAL 12/10/17 21:00 01/09/18 20:59 12/13/17 17:28 Docusate Sodium (Colace) 250 mg BID ORAL 12/13/17 19:00 01/12/18 18:59 12/14/17 09:18 Donepezil HCl (Aricept) 10 mg QHS ORAL 12/09/17 21:00 01/08/18 20:59 12/13/17 21:13 Enoxaparin Sodium (Lovenox) 40 mg DAILY SUBQ 12/10/17 09:00 01/09/18 08:59 12/14/17 09:22 Finasteride (Proscar) 5 mg DAILY ORAL 12/10/17 09:00 01/09/18 08:59 12/14/17 09:19 Magnesium Hydroxide (Mom) 30 ml TID PRN ORAL Constipation 12/13/17 19:00 01/12/18 18:59 12/13/17 19:00 Metoprolol Succinate (Toprol XL) 25 mg DAILY ORAL 12/10/17 09:00 01/09/18 08:59 12/13/17 09:06 Midodrine (Pro-Amatine) 10 mg THREE TIMES A DAY ORAL 12/10/17 21:00 01/09/18 20:59 12/14/17 09:19 Oxycodone/ Acetaminophen (Percocet 10/325) 1 tab Q4H PRN ORAL Severe Pain (Pain Scale 7-10) 12/11/17 08:15 12/18/17 08:14 12/11/17 18:44 Sodium Phosphate (Fleet's Sodium Phosl Enema) 133 ml DAILY PRN RECTAL Constipation 12/13/17 19:00 01/12/18 18:59 Tamsulosin HCl (Flomax) 0.4 mg BEDTIME ORAL 12/09/17 21:00 01/08/18 20:59 12/13/17 21:13 Height (Feet): 6 Height (Inches): 1.00 Weight (Pounds): 210 Objective exam stable TYSON MCCOY Dec 14, 2017 10:09
[2017-12-14 11:53] VITALS: BP 128/58
[2017-12-14 16:06] VITALS: BP 134/90
[2017-12-14] MEDS: Donepezil 10mg tab ORAL SCH (20:53)
[2017-12-14] MEDS: Tamsulosin 0.4mg cap ORAL SCH (20:53)
[2017-12-15] VITALS (7 sets, daily range): BP systolic 101–149; BP diastolic 59–71
--- NOTE | 2017-12-15 08:31 | General Progress Note ---
Assessment/Plan Problem List: (1) Syncope ICD Codes: R55 - Syncope and collapse SNOMED: 910348263 (2) Pacemaker ICD Codes: Z95.0 - Pacemaker SNOMED: 575520753 (3) Decubitus skin ulcer ICD Codes: L89.90 - Pressure ulcer of unspecified site, unspecified stage SNOMED: 950184506 Qualifiers: Qualified Codes: L89.212 - Pressure ulcer of right hip, stage 2 (4) Right hip pain ICD Codes: M25.551 - Pain in right hip SNOMED: 77788293 Status: stable, progressing Assessment/Plan pain rx ct noted- +bone lesions- ?met ca psa 107 monitor labs family now wants to take pt home dc planning once bed arrives Subjective ROS Limited/Unobtainable: Yes Constitutional: Reports: malaise, weakness HEENT: Reports: no symptoms Cardiovascular: Reports: no symptoms Respiratory: Reports: no symptoms Gastrointestinal/Abdominal: Reports: no symptoms Genitourinary: Reports: no symptoms Neurologic/Psychiatric: Reports: pre-existing deficit Endocrine: Reports: no symptoms Hematologic/Lymphatic: Reports: anemia Allergies: Coded Allergies: No Known Allergies (Unverified , 05/04/12) All Systems: reviewed and negative except above Subjective no events. family wants to take pt home. no fever or chills. d/w dtr in law. pt with known history of prostate ca no change. family need DME before taking pt home Objective Last 24 Hour Vital Signs Date Time Temp Pulse Resp B/P (MAP) Pulse Ox O2 Delivery O2 Flow Rate FiO2 12/15/17 04:12 97.6 78 20 111/60 96 Room Air 12/15/17 00:04 97.6 72 20 124/62 96 12/14/17 18:26 80 131/66 12/14/17 16:06 97.9 74 19 134/90 97 Room Air 12/14/17 11:53 98.4 68 18 128/58 99 12/14/17 09:25 69 117/57 12/14/17 09:00 69 117/57 12/14/17 08:45 98.2 63 18 121/54 100 Intake and Output 12/14/17 12/15/17 19:00 07:00 Intake Total 360 ml 660 ml Balance 360 ml 660 ml Intake Oral 360 ml 660 ml # Voids 2 # Bowel Movements 2 Height (Feet): 6 Height (Inches): 1.00 Weight (Pounds): 210 Objective General Appearance: WD/WN, alert Neck: supple Cardiovascular: normal rate Respiratory/Chest: chest wall non-tender, lungs clear, normal breath sounds Abdomen: normal bowel sounds, non tender, soft, no organomegaly Edema: no edema noted Arm (L), no edema noted Arm (R), no edema noted Leg (L), no edema noted Leg (R), no edema noted Pedal (L), no edema noted Pedal (R), no edema noted Generalized Neurologic: alert, disoriented YOU ROMO Dec 15, 2017 08:31
[2017-12-15] MEDS: Midodrine 10mg tab ORAL SCH ×3 (09:44→18:36)
[2017-12-15] MEDS: Docusate 250mg cap ORAL SCH ×2 (09:44→18:35)
[2017-12-15] MEDS: Enoxaparin 40mg Inj SUBQ SCH (09:45)
--- NOTE | 2017-12-15 09:57 | Urology Progress Note ---
Assessment/Plan Assessment/Plan 1. Markedly elevated serum PSA. 2. Rule out prostatic carcinoma. 3. Urinary incontinence. 4. Probable neurogenic bladder. 5. Microhematuria. 6. Renal cyst. 7. Questionable benign prostatic hypertrophy. monitor clinically flomax and proscar consider checking PVR poss prostate biopsy later cysto later Subjective Allergies: Coded Allergies: No Known Allergies (Unverified , 05/04/12) Subjective all noted, incontinent of urine Objective Last 24 Hour Vital Signs Date Time Temp Pulse Resp B/P (MAP) Pulse Ox O2 Delivery O2 Flow Rate FiO2 12/15/17 09:35 78 101/59 12/15/17 09:00 78 101/59 12/15/17 08:40 97.7 76 19 106/69 96 12/15/17 04:12 97.6 78 20 111/60 96 Room Air 12/15/17 00:04 97.6 72 20 124/62 96 12/14/17 18:26 80 131/66 12/14/17 16:06 97.9 74 19 134/90 97 Room Air 12/14/17 11:53 98.4 68 18 128/58 99 Intake and Output 12/14/17 12/15/17 19:00 07:00 Intake Total 360 ml 660 ml Balance 360 ml 660 ml Intake Oral 360 ml 660 ml # Voids 2 # Bowel Movements 2 Microbiology Date/Time Source Procedure Growth Status 12/09/17 13:50 Nasal Nares MRSA Culture - Final NO METHICILLIN RESISTANT STAPH AUREUS... Complete 12/09/17 13:50 Rectum VRE Culture - Final NO VANCOMYCIN RESISTANT ENTEROCOCCUS ... Complete Current Medications Medications (Trade) Dose Ordered Sig/Yamile Route PRN Reason Start Time Stop Time Status Last Admin Dose Admin Acetaminophen/ Hydrocodone Bitart ([place] 10/325) 1 tab Q4H PRN ORAL Moderate Pain (Pain Scale 4-6) 12/11/17 08:15 12/16/17 18:29 12/13/17 23:48 Amlodipine Besylate (Norvasc) 2.5 mg BID ORAL 12/10/17 21:00 01/09/18 20:59 12/14/17 18:26 Docusate Sodium (Colace) 250 mg BID ORAL 12/13/17 19:00 01/12/18 18:59 12/15/17 09:44 Donepezil HCl (Aricept) 10 mg QHS ORAL 12/09/17 21:00 01/08/18 20:59 12/14/17 20:53 Enoxaparin Sodium (Lovenox) 40 mg DAILY SUBQ 12/10/17 09:00 01/09/18 08:59 12/15/17 09:45 Finasteride (Proscar) 5 mg DAILY ORAL 12/10/17 09:00 01/09/18 08:59 12/15/17 09:44 Magnesium Hydroxide (Mom) 30 ml TID PRN ORAL Constipation 12/13/17 19:00 01/12/18 18:59 12/13/17 19:00 Metoprolol Succinate (Toprol XL) 25 mg DAILY ORAL 12/10/17 09:00 01/09/18 08:59 12/13/17 09:06 Midodrine (Pro-Amatine) 10 mg THREE TIMES A DAY ORAL 12/10/17 21:00 01/09/18 20:59 12/15/17 09:44 Oxycodone/ Acetaminophen (Percocet 10/325) 1 tab Q4H PRN ORAL Severe Pain (Pain Scale 7-10) 12/11/17 08:15 12/18/17 08:14 12/11/17 18:44 Sodium Phosphate (Fleet's Sodium Phosl Enema) 133 ml DAILY PRN RECTAL Constipation 12/13/17 19:00 01/12/18 18:59 Tamsulosin HCl (Flomax) 0.4 mg BEDTIME ORAL 12/09/17 21:00 01/08/18 20:59 12/14/17 20:53 Height (Feet): 6 Height (Inches): 1.00 Weight (Pounds): 210 Objective exam stable TYSON MCCOY Dec 15, 2017 09:56
[2017-12-15] MEDS: Metoprolol Succinate XL 25mg tab ORAL SCH (12:36)
[2017-12-15] MEDS: Donepezil 10mg tab ORAL SCH (21:07)
[2017-12-15] MEDS: Tamsulosin 0.4mg cap ORAL SCH (21:07)
[2017-12-16] VITALS: BP 138/65
[2017-12-16 08:00] VITALS: BP 152/68
[2017-12-16] MEDS: Docusate 250mg cap ORAL SCH ×2 (08:37→18:37)
[2017-12-16] MEDS: Metoprolol Succinate XL 25mg tab ORAL SCH (08:37)
[2017-12-16] MEDS: Midodrine 10mg tab ORAL SCH ×3 (08:38→18:38)
[2017-12-16] MEDS: Enoxaparin 40mg Inj SUBQ SCH (08:39)
--- NOTE | 2017-12-16 08:41 | General Progress Note ---
Assessment/Plan Problem List: (1) Syncope ICD Codes: R55 - Syncope and collapse SNOMED: 177936612 (2) Pacemaker ICD Codes: Z95.0 - Pacemaker SNOMED: 100464796 (3) Decubitus skin ulcer ICD Codes: L89.90 - Pressure ulcer of unspecified site, unspecified stage SNOMED: 776139242 Qualifiers: Qualified Codes: L89.212 - Pressure ulcer of right hip, stage 2 (4) Right hip pain ICD Codes: M25.551 - Pain in right hip SNOMED: 89113985 Status: stable, progressing Assessment/Plan pain rx ct noted- +bone lesions- ?met ca psa 107 monitor labs family now wants to take pt home pt needs semi electric hospital bed. Had hip fracture and recent hemiarthropalsty. 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 Pts need hospital bed to help to reposition himself. unable to reposition in regular bed. also need airmatress overlay for wound care management/prevention dc planning once bed arrives Subjective ROS Limited/Unobtainable: No Constitutional: Reports: malaise, weakness HEENT: Reports: no symptoms Cardiovascular: Reports: no symptoms Respiratory: Reports: no symptoms Gastrointestinal/Abdominal: Reports: no symptoms Genitourinary: Reports: no symptoms Neurologic/Psychiatric: Reports: no symptoms Endocrine: Reports: no symptoms Hematologic/Lymphatic: Reports: no symptoms Allergies: Coded Allergies: No Known Allergies (Unverified , 05/04/12) All Systems: reviewed and negative except above Subjective no events. family wants to take pt home. no fever or chills. d/w dtr in law. pt with known history of prostate ca no change. family needs hospital bed. Objective Last 24 Hour Vital Signs Date Time Temp Pulse Resp B/P (MAP) Pulse Ox O2 Delivery O2 Flow Rate FiO2 12/16/17 08:00 97.7 86 18 152/68 97 12/16/17 00:00 97.9 92 18 138/65 99 Room Air 12/15/17 20:01 98.4 88 20 135/64 98 Room Air 12/15/17 18:36 90 138/80 12/15/17 16:00 Room Air 12/15/17 16:00 97.3 74 19 122/60 99 12/15/17 12:39 83 149/71 12/15/17 12:36 83 149/71 12/15/17 09:35 78 101/59 12/15/17 09:00 78 101/59 12/15/17 08:40 97.7 76 19 106/69 96 12/15/17 08:40 Room Air Intake and Output 12/15/17 12/16/17 19:00 07:00 Intake Total 480 ml 300 ml Balance 480 ml 300 ml Intake Oral 480 ml 300 ml # Voids 2 # Bowel Movements 2 Height (Feet): 6 Height (Inches): 1.00 Weight (Pounds): 210 Objective General Appearance: WD/WN, alert Neck: supple Cardiovascular: normal rate Respiratory/Chest: chest wall non-tender, lungs clear, normal breath sounds Abdomen: normal bowel sounds, non tender, soft, no organomegaly Edema: no edema noted Arm (L), no edema noted Arm (R), no edema noted Leg (L), no edema noted Leg (R), no edema noted Pedal (L), no edema noted Pedal (R), no edema noted Generalized Neurologic: alert, disoriented YOU ROMO Dec 16, 2017 08:41
--- NOTE | 2017-12-16 08:58 | Urology Progress Note ---
Assessment/Plan Assessment/Plan 1. Markedly elevated serum PSA. 2. Rule out prostatic carcinoma. 3. Urinary incontinence. 4. Probable neurogenic bladder. 5. Microhematuria. 6. Renal cyst. 7. Questionable benign prostatic hypertrophy. monitor clinically flomax and proscar consider checking PVR poss prostate biopsy later cysto later Subjective Allergies: Coded Allergies: No Known Allergies (Unverified , 05/04/12) Subjective all noted, incontinent of urine Objective Last 24 Hour Vital Signs Date Time Temp Pulse Resp B/P (MAP) Pulse Ox O2 Delivery O2 Flow Rate FiO2 12/16/17 08:37 86 152/68 12/16/17 08:37 86 152/68 12/16/17 08:00 97.7 86 18 152/68 97 12/16/17 00:00 97.9 92 18 138/65 99 Room Air 12/15/17 20:01 98.4 88 20 135/64 98 Room Air 12/15/17 18:36 90 138/80 12/15/17 16:00 Room Air 12/15/17 16:00 97.3 74 19 122/60 99 12/15/17 12:39 83 149/71 12/15/17 12:36 83 149/71 12/15/17 09:35 78 101/59 12/15/17 09:00 78 101/59 Intake and Output 12/15/17 12/16/17 19:00 07:00 Intake Total 480 ml 300 ml Balance 480 ml 300 ml Intake Oral 480 ml 300 ml # Voids 2 # Bowel Movements 2 Microbiology Date/Time Source Procedure Growth Status 12/09/17 13:50 Nasal Nares MRSA Culture - Final NO METHICILLIN RESISTANT STAPH AUREUS... Complete 12/09/17 13:50 Rectum VRE Culture - Final NO VANCOMYCIN RESISTANT ENTEROCOCCUS ... Complete Current Medications Medications (Trade) Dose Ordered Sig/Yamile Route PRN Reason Start Time Stop Time Status Last Admin Dose Admin Acetaminophen/ Hydrocodone Bitart ([place] 10/325) 1 tab Q4H PRN ORAL Moderate Pain (Pain Scale 4-6) 12/11/17 08:15 12/16/17 18:29 12/13/17 23:48 Amlodipine Besylate (Norvasc) 2.5 mg BID ORAL 12/10/17 21:00 01/09/18 20:59 12/16/17 08:37 Docusate Sodium (Colace) 250 mg BID ORAL 12/13/17 19:00 01/12/18 18:59 12/16/17 08:37 Donepezil HCl (Aricept) 10 mg QHS ORAL 12/09/17 21:00 01/08/18 20:59 12/15/17 21:07 Enoxaparin Sodium (Lovenox) 40 mg DAILY SUBQ 12/10/17 09:00 01/09/18 08:59 12/16/17 08:39 Finasteride (Proscar) 5 mg DAILY ORAL 12/10/17 09:00 01/09/18 08:59 12/16/17 08:38 Magnesium Hydroxide (Mom) 30 ml TID PRN ORAL Constipation 12/13/17 19:00 01/12/18 18:59 12/13/17 19:00 Metoprolol Succinate (Toprol XL) 25 mg DAILY ORAL 12/10/17 09:00 01/09/18 08:59 12/16/17 08:37 Midodrine (Pro-Amatine) 10 mg THREE TIMES A DAY ORAL 12/10/17 21:00 01/09/18 20:59 12/16/17 08:38 Oxycodone/ Acetaminophen (Percocet 10/325) 1 tab Q4H PRN ORAL Severe Pain (Pain Scale 7-10) 12/11/17 08:15 12/18/17 08:14 12/11/17 18:44 Sodium Phosphate (Fleet's Sodium Phosl Enema) 133 ml DAILY PRN RECTAL Constipation 12/13/17 19:00 01/12/18 18:59 Tamsulosin HCl (Flomax) 0.4 mg BEDTIME ORAL 12/09/17 21:00 01/08/18 20:59 12/15/17 21:07 Height (Feet): 6 Height (Inches): 1.00 Weight (Pounds): 210 Objective exam stable TYSON MCCOY Dec 16, 2017 08:58
[2017-12-16 12:00] VITALS: BP 120/57
[2017-12-16 15:42] VITALS: BP 130/60
[2017-12-16 19:34] VITALS: BP 126/55
[2017-12-16] MEDS: Donepezil 10mg tab ORAL SCH (21:13)
[2017-12-16] MEDS: Tamsulosin 0.4mg cap ORAL SCH (21:13)
[2017-12-16 23:21] VITALS: BP 132/59
[2017-12-17 04:00] VITALS: BP 118/65
[2017-12-17 08:08] VITALS: BP 96/52
[2017-12-17] MEDS: Docusate 250mg cap ORAL SCH ×2 (08:30→18:00)
[2017-12-17] MEDS: Metoprolol Succinate XL 25mg tab ORAL SCH (08:32)
[2017-12-17] MEDS: Enoxaparin 40mg Inj SUBQ SCH (08:32)
[2017-12-17] MEDS: Midodrine 10mg tab ORAL SCH ×3 (08:33→18:00)
--- NOTE | 2017-12-17 09:36 | Urology Progress Note ---
Assessment/Plan Assessment/Plan 1. Markedly elevated serum PSA. 2. Rule out prostatic carcinoma. 3. Urinary incontinence. 4. Probable neurogenic bladder. 5. Microhematuria. 6. Renal cyst. 7. Questionable benign prostatic hypertrophy. monitor clinically flomax and proscar consider checking PVR poss prostate biopsy later cysto later Subjective Allergies: Coded Allergies: No Known Allergies (Unverified , 05/04/12) Subjective all noted, incontinent of urine Objective Last 24 Hour Vital Signs Date Time Temp Pulse Resp B/P (MAP) Pulse Ox O2 Delivery O2 Flow Rate FiO2 12/17/17 08:33 72 96/52 12/17/17 08:32 72 96/52 12/17/17 08:08 98.2 72 20 96/52 97 12/17/17 04:00 98.1 78 19 118/65 99 Room Air 12/16/17 23:21 98.8 65 20 132/59 98 Room Air 12/16/17 19:34 99.1 78 20 126/55 95 Room Air 12/16/17 18:38 71 130/60 12/16/17 15:42 97.3 71 18 130/60 98 12/16/17 12:00 97.7 73 19 120/57 98 Intake and Output 12/16/17 12/17/17 19:00 07:00 Intake Total 360 ml 120 ml Balance 360 ml 120 ml Intake Oral 360 ml 120 ml # Voids 3 Microbiology Date/Time Source Procedure Growth Status 12/09/17 13:50 Nasal Nares MRSA Culture - Final NO METHICILLIN RESISTANT STAPH AUREUS... Complete 12/09/17 13:50 Rectum VRE Culture - Final NO VANCOMYCIN RESISTANT ENTEROCOCCUS ... Complete Current Medications Medications (Trade) Dose Ordered Sig/Yamile Route PRN Reason Start Time Stop Time Status Last Admin Dose Admin Amlodipine Besylate (Norvasc) 2.5 mg BID ORAL 12/10/17 21:00 01/09/18 20:59 12/16/17 18:38 Docusate Sodium (Colace) 250 mg BID ORAL 12/13/17 19:00 01/12/18 18:59 12/17/17 08:30 Donepezil HCl (Aricept) 10 mg QHS ORAL 12/09/17 21:00 01/08/18 20:59 12/16/17 21:13 Enoxaparin Sodium (Lovenox) 40 mg DAILY SUBQ 12/10/17 09:00 01/09/18 08:59 12/17/17 08:32 Finasteride (Proscar) 5 mg DAILY ORAL 12/10/17 09:00 01/09/18 08:59 12/17/17 08:30 Magnesium Hydroxide (Mom) 30 ml TID PRN ORAL Constipation 12/13/17 19:00 01/12/18 18:59 12/13/17 19:00 Metoprolol Succinate (Toprol XL) 25 mg DAILY ORAL 12/10/17 09:00 01/09/18 08:59 12/16/17 08:37 Midodrine (Pro-Amatine) 10 mg THREE TIMES A DAY ORAL 12/10/17 21:00 01/09/18 20:59 12/16/17 18:38 Oxycodone/ Acetaminophen (Percocet 10/325) 1 tab Q4H PRN ORAL Severe Pain (Pain Scale 7-10) 12/11/17 08:15 12/18/17 08:14 12/16/17 10:04 Sodium Phosphate (Fleet's Sodium Phosl Enema) 133 ml DAILY PRN RECTAL Constipation 12/13/17 19:00 01/12/18 18:59 Tamsulosin HCl (Flomax) 0.4 mg BEDTIME ORAL 12/09/17 21:00 01/08/18 20:59 12/16/17 21:13 Height (Feet): 6 Height (Inches): 1.00 Weight (Pounds): 210 Objective exam stable TYSON MCCOY Dec 17, 2017 09:36
[2017-12-17 11:46] VITALS: BP 101/54
--- NOTE | 2017-12-17 16:32 | General Progress Note ---
Assessment/Plan Problem List: (1) Syncope ICD Codes: R55 - Syncope and collapse SNOMED: 198989966 (2) Pacemaker ICD Codes: Z95.0 - Pacemaker SNOMED: 156531586 (3) Decubitus skin ulcer ICD Codes: L89.90 - Pressure ulcer of unspecified site, unspecified stage SNOMED: 539260030 Qualifiers: Qualified Codes: L89.212 - Pressure ulcer of right hip, stage 2 (4) Right hip pain ICD Codes: M25.551 - Pain in right hip SNOMED: 69894745 Status: stable, progressing Assessment/Plan pain rx ct noted- +bone lesions- ?met ca psa 107 monitor labs family now wants to take pt home pt needs semi electric hospital bed. Had hip fracture and recent hemiarthropalsty. 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 Pts need hospital bed to help to reposition himself. unable to reposition in regular bed. also need airmatress overlay for wound care management/prevention dc planning once bed arrives Subjective ROS Limited/Unobtainable: No Constitutional: Reports: malaise, weakness HEENT: Reports: no symptoms Cardiovascular: Reports: no symptoms Respiratory: Reports: no symptoms Gastrointestinal/Abdominal: Reports: no symptoms Genitourinary: Reports: no symptoms Neurologic/Psychiatric: Reports: pre-existing deficit Endocrine: Reports: no symptoms Hematologic/Lymphatic: Reports: no symptoms Allergies: Coded Allergies: No Known Allergies (Unverified , 05/04/12) All Systems: reviewed and negative except above Subjective no events. family wants to take pt home. no fever or chills. d/w dtr in law. pt with known history of prostate ca no change. family needs hospital bed- per case management- arriving tomorrow Objective Last 24 Hour Vital Signs Date Time Temp Pulse Resp B/P (MAP) Pulse Ox O2 Delivery O2 Flow Rate FiO2 12/17/17 11:46 98.0 75 20 101/54 97 12/17/17 08:33 72 96/52 12/17/17 08:32 72 96/52 12/17/17 08:08 98.2 72 20 96/52 97 12/17/17 04:00 98.1 78 19 118/65 99 Room Air 12/16/17 23:21 98.8 65 20 132/59 98 Room Air 12/16/17 19:34 99.1 78 20 126/55 95 Room Air 12/16/17 18:38 71 130/60 Intake and Output 12/16/17 12/17/17 19:00 07:00 Intake Total 360 ml 120 ml Balance 360 ml 120 ml Intake Oral 360 ml 120 ml # Voids 3 Height (Feet): 6 Height (Inches): 1.00 Weight (Pounds): 210 Objective General Appearance: WD/WN, alert Neck: supple Cardiovascular: normal rate Respiratory/Chest: chest wall non-tender, lungs clear, normal breath sounds Abdomen: normal bowel sounds, non tender, soft, no organomegaly Edema: no edema noted Arm (L), no edema noted Arm (R), no edema noted Leg (L), no edema noted Leg (R), no edema noted Pedal (L), no edema noted Pedal (R), no edema noted Generalized Neurologic: alert, disoriented YOU ROMO Dec 17, 2017 16:32
[2017-12-17 19:51] VITALS: BP 130/61
[2017-12-17] MEDS: Donepezil 10mg tab ORAL SCH (21:09)
[2017-12-17] MEDS: Tamsulosin 0.4mg cap ORAL SCH (21:09)
[2017-12-18 03:59] VITALS: BP 126/60
[2017-12-18 07:42] VITALS: BP 133/62
--- NOTE | 2017-12-18 07:55 | Urology Progress Note ---
Assessment/Plan Assessment/Plan 1. Markedly elevated serum PSA. 2. Hx of prostatic carcinoma, now with mets. 3. Urinary incontinence. 4. Probable neurogenic bladder. 5. Microhematuria. 6. Renal cyst. 7. Questionable benign prostatic hypertrophy. monitor clinically flomax and proscar consider checking PVR cysto later add casodex lupron later, as outpt Subjective Allergies: Coded Allergies: No Known Allergies (Unverified , 05/04/12) Subjective all noted, incontinent of urine, d/w Dr. laura, apparently family now state there is known hx of prostate cancer, prev tx? Objective Last 24 Hour Vital Signs Date Time Temp Pulse Resp B/P (MAP) Pulse Ox O2 Delivery O2 Flow Rate FiO2 12/18/17 07:42 97.0 61 20 133/62 99 12/18/17 03:59 97.5 64 20 126/60 99 Room Air 12/17/17 19:51 98.1 74 20 130/61 100 Room Air 12/17/17 18:00 75 101/54 12/17/17 11:46 98.0 75 20 101/54 97 12/17/17 08:33 72 96/52 12/17/17 08:32 72 96/52 12/17/17 08:08 98.2 72 20 96/52 97 Intake and Output 12/17/17 12/18/17 19:00 07:00 Intake Total 570 ml Balance 570 ml Intake Oral 570 ml # Voids 4 Height (Feet): 6 Height (Inches): 1.00 Weight (Pounds): 210 Objective exam stable TYSON MCCOY Dec 18, 2017 07:55
--- NOTE | 2017-12-18 08:07 | General Progress Note ---
Assessment/Plan Problem List: (1) Syncope ICD Codes: R55 - Syncope and collapse SNOMED: 575539149 (2) Pacemaker ICD Codes: Z95.0 - Pacemaker SNOMED: 168262896 (3) Decubitus skin ulcer ICD Codes: L89.90 - Pressure ulcer of unspecified site, unspecified stage SNOMED: 090658165 Qualifiers: Qualified Codes: L89.212 - Pressure ulcer of right hip, stage 2 (4) Right hip pain ICD Codes: M25.551 - Pain in right hip SNOMED: 20041960 Status: stable, progressing Assessment/Plan pain rx ct noted- +bone lesions- ?met ca psa 107 casodex and luprox as outpt monitor labs family now wants to take pt home pt needs semi electric hospital bed. Had hip fracture and recent hemiarthropalsty. 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 Pts need hospital bed to help to reposition himself. unable to reposition in regular bed. also need airmatress overlay for wound care management/prevention dc planning once bed arrives Subjective ROS Limited/Unobtainable: No Constitutional: Reports: malaise, weakness HEENT: Reports: no symptoms Cardiovascular: Reports: no symptoms Respiratory: Reports: no symptoms Gastrointestinal/Abdominal: Reports: no symptoms Genitourinary: Reports: no symptoms Neurologic/Psychiatric: Reports: pre-existing deficit Endocrine: Reports: no symptoms Hematologic/Lymphatic: Reports: no symptoms Allergies: Coded Allergies: No Known Allergies (Unverified , 05/04/12) All Systems: reviewed and negative except above Subjective no events. stable. awaiting for arrival of DME(hospital bed) otherwise stable. d/w dr snell. needs 2 weeks of casodex followed by brian family declined snf. dtr does not want to pay share of cost Objective Last 24 Hour Vital Signs Date Time Temp Pulse Resp B/P (MAP) Pulse Ox O2 Delivery O2 Flow Rate FiO2 12/18/17 07:42 97.0 61 20 133/62 99 12/18/17 03:59 97.5 64 20 126/60 99 Room Air 12/17/17 19:51 98.1 74 20 130/61 100 Room Air 12/17/17 18:00 75 101/54 12/17/17 11:46 98.0 75 20 101/54 97 12/17/17 08:33 72 96/52 12/17/17 08:32 72 96/52 12/17/17 08:08 98.2 72 20 96/52 97 Intake and Output 12/17/17 12/18/17 19:00 07:00 Intake Total 570 ml Balance 570 ml Intake Oral 570 ml # Voids 4 Height (Feet): 6 Height (Inches): 1.00 Weight (Pounds): 210 Objective General Appearance: WD/WN, alert Neck: supple Cardiovascular: normal rate Respiratory/Chest: chest wall non-tender, lungs clear, normal breath sounds Abdomen: normal bowel sounds, non tender, soft, no organomegaly Edema: no edema noted Arm (L), no edema noted Arm (R), no edema noted Leg (L), no edema noted Leg (R), no edema noted Pedal (L), no edema noted Pedal (R), no edema noted Generalized Neurologic: alert, disoriented YOU ROMO Dec 18, 2017 08:07
[2017-12-18] MEDS: Midodrine 10mg tab ORAL SCH ×3 (08:52→18:43)
[2017-12-18] MEDS: Metoprolol Succinate XL 25mg tab ORAL SCH (08:52)
[2017-12-18] MEDS: Docusate 250mg cap ORAL SCH ×2 (08:52→18:43)
[2017-12-18] MEDS: Enoxaparin 40mg Inj SUBQ SCH ×2 (08:57→12:51)
[2017-12-18] MEDS: Bicalutamide 50mg tab ORAL SCH (10:03)
[2017-12-18 11:58] LABS: BASOPHILS % (AUTO) 1.1 % (0.0-2.0); EOSINOPHILS % (AUTO) 3.4 % (0.0-3.0); HEMOGLOBIN 10.5 G/DL (14.2-18.0); LYMPHOCYTES % (AUTO) 28.2 % (20.0-45.0); MEAN CORPUSCULAR VOLUME 91 FL (80-99); MONOCYTES % (AUTO) 12.8 % (1.0-10.0); NEUTROPHILS % (AUTO) 54.5 % (45.0-75.0); PLATELET COUNT 323 K/UL (150-450); RED BLOOD COUNT 3.64 M/UL (4.70-6.10); RED CELL DISTRIBUTION WIDTH 13.6 % (11.6-14.8); WHITE BLOOD COUNT 4.4 K/UL (4.8-10.8)
[2017-12-18 12:06] VITALS: BP 129/68
[2017-12-18 12:24] LABS: ANION GAP 4 mmol/L (5-15); BLOOD UREA NITROGEN 11 mg/dL (7-18); CALCIUM 9.2 MG/DL (8.5-10.1); CARBON DIOXIDE 30 MMOL/L (21-32); CHLORIDE 100 MMOL/L (98-107); CREATININE 0.8 MG/DL (0.55-1.30); POTASSIUM 4.3 MMOL/L (3.5-5.1); SODIUM 134 MMOL/L (136-145)
--- NOTE | 2017-12-18 13:05 | Wound Care Consultation ---
Wound Assessment Wound Assessment : Wound Present on Admission: Yes New Wound: No Status Change of Wound: No Wound Location Body Site Modif: right Wound Location Body Site: buttocks Wound Type: pressure ulcer Aliza Test: Does not Aliza Pressure Ulcer Stage: Unstageable Wound Thickness: Full Thickness Wound Length: 5.0 Wound Width: 5.0 Wound Depth: utd Percent of Wound Bed Yellow/Wh: 40 Percent of Wound Black/Brown: 60 Wound Drainage Description: Serosanguineous Wound Drainage Amount: Scant Wound Drainage Odor: None/Absent Tissue Surrounding Wound: Intact Wound General Appearance: Blackened Wound Comment #1 Right trochanter full thickness scar tissue. Skin still intact #2 Right buttock open blister stage II pressure ulcer. Progressed to unstageable pressure ulcer. will change wound care treatment #3 Right lateral thigh DTI pressure ulcer. Still intact #4 Sacral stage II pressure ulcer. No deterioration noted. Will cont same wound care #5 Sacrococcygeal DTI pressure ulcer. Skin still intact. Right buttock open blister stage II pressure ulcer. Progressed to unstageable pressure ulcer. will change wound care treatment and will follow up with this Pt. Recommendation -Local wound care per protocol -Keep clean and dry -Turn and reposition -Optimize nutrition -Low air loss mattress -Offload both heels -Heel protector on both heels -Assess and f/u accordingly for any changes BIRGIT DUEÑAS RN Dec 18, 2017 13:05
[2017-12-18 16:00] VITALS: BP 140/72
[2017-12-18 20:31] VITALS: BP 141/66
[2017-12-18] MEDS: Donepezil 10mg tab ORAL SCH (20:51)
[2017-12-18] MEDS: Tamsulosin 0.4mg cap ORAL SCH (20:51)
[2017-12-18 23:37] VITALS: BP 120/64
[2017-12-19 04:05] VITALS: BP 139/59
[2017-12-19 08:00] VITALS: BP 125/60
[2017-12-19] MEDS: Docusate 250mg cap ORAL SCH (08:50)
[2017-12-19] MEDS: Bicalutamide 50mg tab ORAL SCH (08:50)
[2017-12-19] MEDS: Midodrine 10mg tab ORAL SCH (08:50)
[2017-12-19] MEDS: Enoxaparin 40mg Inj SUBQ SCH (08:51)
[2017-12-19] MEDS: Metoprolol Succinate XL 25mg tab ORAL SCH (08:55)
--- NOTE | 2017-12-19 10:01 | Urology Progress Note ---
Assessment/Plan Assessment/Plan 1. Markedly elevated serum PSA. 2. Hx of prostatic carcinoma, now with mets. 3. Urinary incontinence. 4. Probable neurogenic bladder. 5. Microhematuria. 6. Renal cyst. 7. Questionable benign prostatic hypertrophy. monitor clinically flomax and proscar consider checking PVR renal fxn stable cysto later casodex added, rec to cont as outpt lupron later, as outpt monitor serum PSA Subjective Allergies: Coded Allergies: No Known Allergies (Unverified , 05/04/12) Subjective all noted, incontinent of urine, dc planning Objective Last 24 Hour Vital Signs Date Time Temp Pulse Resp B/P (MAP) Pulse Ox O2 Delivery O2 Flow Rate FiO2 12/19/17 08:55 63 125/60 12/19/17 08:55 63 125/60 12/19/17 08:00 97.4 63 18 125/60 98 Room Air 12/19/17 04:05 97.4 60 18 139/59 98 Room Air 12/18/17 23:37 97.7 64 19 120/64 99 Room Air 12/18/17 20:31 97.3 62 18 141/66 99 Room Air 12/18/17 18:43 71 140/72 12/18/17 16:00 97.9 71 19 140/72 98 12/18/17 12:06 97.5 71 20 129/68 100 Intake and Output 12/18/17 12/19/17 19:00 07:00 Intake Total 360 ml Output Total 150 ml 600 ml Balance 210 ml -600 ml Intake Oral 360 ml Output Urine Total 150 ml 600 ml # Voids 2 # Bowel Movements 2 Microbiology Date/Time Source Procedure Growth Status 12/09/17 13:50 Nasal Nares MRSA Culture - Final NO METHICILLIN RESISTANT STAPH AUREUS... Complete 12/09/17 13:50 Rectum VRE Culture - Final NO VANCOMYCIN RESISTANT ENTEROCOCCUS ... Complete Current Medications Medications (Trade) Dose Ordered Sig/Yamile Route PRN Reason Start Time Stop Time Status Last Admin Dose Admin Amlodipine Besylate (Norvasc) 2.5 mg BID ORAL 12/10/17 21:00 01/09/18 20:59 12/19/17 08:55 Bicalutamide (Casodex) 50 mg DAILY ORAL 12/18/17 09:00 12/23/17 08:59 12/19/17 08:50 Docusate Sodium (Colace) 250 mg BID ORAL 12/13/17 19:00 01/12/18 18:59 12/19/17 08:50 Donepezil HCl (Aricept) 10 mg QHS ORAL 12/09/17 21:00 01/08/18 20:59 12/18/17 20:51 Enoxaparin Sodium (Lovenox) 40 mg DAILY SUBQ 12/10/17 09:00 01/09/18 08:59 12/19/17 08:51 Finasteride (Proscar) 5 mg DAILY ORAL 12/10/17 09:00 01/09/18 08:59 12/19/17 08:50 Magnesium Hydroxide (Mom) 30 ml TID PRN ORAL Constipation 12/13/17 19:00 01/12/18 18:59 12/13/17 19:00 Metoprolol Succinate (Toprol XL) 25 mg DAILY ORAL 12/10/17 09:00 01/09/18 08:59 12/19/17 08:55 Midodrine (Pro-Amatine) 10 mg THREE TIMES A DAY ORAL 12/10/17 21:00 01/09/18 20:59 12/19/17 08:50 Sodium Phosphate (Fleet's Sodium Phosl Enema) 133 ml DAILY PRN RECTAL Constipation 12/13/17 19:00 01/12/18 18:59 Tamsulosin HCl (Flomax) 0.4 mg BEDTIME ORAL 12/09/17 21:00 01/08/18 20:59 12/18/17 20:51 Laboratory Tests 12/18/17 11:10: White Blood Count 4.4L, Red Blood Count 3.64L, Hemoglobin 10.5L, Hematocrit 33.0L, Mean Corpuscular Volume 91, Mean Corpuscular Hemoglobin 28.9, Mean Corpuscular Hemoglobin Concent 32.0, Red Cell Distribution Width 13.6, Platelet Count 323, Mean Platelet Volume 5.6L, Neutrophils (%) (Auto) 54.5, Lymphocytes ( %) (Auto) 28.2, Monocytes (%) (Auto) 12.8H, Eosinophils (%) (Auto) 3.4H, Basophils (%) (Auto) 1.1, Sodium Level 134L, Potassium Level 4.3, Chloride Level 100, Carbon Dioxide Level 30, Anion Gap 4L, Blood Urea Nitrogen 11, Creatinine 0.8, Estimat Glomerular Filtration Rate , Glucose Level 107H, Calcium Level 9.2 Height (Feet): 6 Height (Inches): 1.00 Weight (Pounds): 210 Objective exam stable TYSON MCCOY Dec 19, 2017 10:01
[2017-12-19] MEDS ORDERED: BICALUTAMIDE50 MG ORAL (10:38)
[2017-12-19 12:00] VITALS: BP 135/73
--- NOTE | 2017-12-20 02:01 | Discharge Summary ---
DATE OF ADMISSION: 12/09/2017 DATE OF DISCHARGE: 12/19/2017 ADMISSION DIAGNOSES: 1. Failure to thrive. 2. Right hip pain. 3. Right hip pressure ulcer. 4. History of orthostatic hypotension. 5. Dementia. 6. History of pacemaker. DISCHARGE DIAGNOSES: 1. Failure to thrive. 2. Right hip pain. 3. Right hip pressure ulcer. 4. History of orthostatic hypotension. 5. Dementia. 6. History of pacemaker. HOSPITAL COURSE: The patient is an unfortunate male, who was previously admitted with a hip fracture. He was sent home, at that time family had declined the snf facility. He developed a small pressure wound on the right hip. He was admitted. He received local wound care. Plastic Surgery consultation and no surgical debridement was required. The patient was continued on his blood pressure medicine. His antihypertensives were adjusted. It took some time to order the patient a hospital bed. He was again offered a snf facility, the family declined and stated they did not want to pay cost. They did state that he had 24-hour caregivers at home. The patient will be discharged home. Pain medicines have been called in for the patient. Home health has been arranged. He has been asked to follow up with the wound care center at [facility]. The patient's daughter stated that she will schedule an appointment. Please see discharge notes and discharge medications. DIET: Cardiac diet. ACTIVITY: Ad-Rena. FOLLOWUP: The patient will follow up in one to two weeks in the office. Dennis Burger M.D. DR: AUGUST JOB#: [id number] CC:
== END 2017-12-19 14:13 | disposition home health service (06) | DRG 593 ==
LOC: EDBD 08:52 → EMR 09:40 → 4W 13:11 → EDBEDREQ 14:38 → 4W 12-15 10:32
DX: L89.212 Pressure ulcer of right hip, stage 2 (principal); M62.82 Rhabdomyolysis; L89.152 Pressure ulcer of sacral region, stage 2; E86.0 Dehydration; F03.90 Unspecified dementia, unspecified severity, without behavioral disturbance, psychotic disturbance, mood disturbance, and anxiety; N28.1 Cyst of kidney, acquired; C61 Malignant neoplasm of prostate; R31.29 Other microscopic hematuria; Z95.1 Presence of aortocoronary bypass graft; I10 Essential (primary) hypertension; R62.7 Adult failure to thrive; I25.10 Atherosclerotic heart disease of native coronary artery without angina pectoris; N40.0 Benign prostatic hyperplasia without lower urinary tract symptoms; R32 Unspecified urinary incontinence; Z95.0 Presence of cardiac pacemaker
CPT/HCPCS: 36415; 72170; 74176; 80048; 80053; 81003; 82378; 82550; 83880; 84153; 84484; 85025; 85610; 85730; 87081; 93005; 99285; J2405

== ENCOUNTER 2017-12-28 14:13 | Inpatient (IN) | payer MEDICARE ==
[~2017-12-28] VITALS: Ht 185.4 cm; Wt 65.8 kg
[~2017-12-28 14:13] MED LIST changes: +BICALUTAMIDE50 MG ORAL
--- NOTE | 2017-12-28 14:27 | Emergency Room Report ---
History of Present Illness General Chief Complaint: General Complaint Source: Patient, EMS Present Illness HPI This is a 82-year-old male brought in by EMS after increased generalized weakness. The patient recently been released from the hospital. The patient reportedly had multiple decubitus ulcers. Reportedly he is being sent in for evaluation of ulcers Allergies: Coded Allergies: No Known Allergies (Unverified , 05/04/12) Patient History Past Medical History: see triage record Reviewed Nursing Documentation: PMH: Agreed, PSxH: Agreed Nursing Documentation-PMH Hx Cardiac Problems: Yes Hx Hypertension: Yes Hx Pacemaker: Yes Hx Cancer: Yes Hx Gastrointestinal Problems: No Hx Dementia: Yes Review of Systems All Other Systems: negative except mentioned in HPI Physical Exam Vital Signs Date Time Temp Pulse Resp B/P (MAP) Pulse Ox O2 Delivery O2 Flow Rate FiO2 12/28/17 14:07 97.3 7 16 135/75 98 97.3 General Appearance: lethargic, Chronically Ill ENT: dry mucus membranes Neck: limited range of motion Respiratory: lungs clear, normal breath sounds Cardiovascular #1: regular rate, rhythm Gastrointestinal: soft Neurologic: motor weakness, other - slow speech Psychiatric: other - poor insight Skin: other - multiple decubitus ulcers Medical Decision Making Diagnostic Impression: Primary Impression: Failure to thrive Additional Impression: Decubitus ulcer ER Course The patient presented for evaluation of skin ulcers. The differential diagnosis included wasn't limited to staph infection, immobility, failure to thrive among others.Because of complexity of patient's case laboratory testing and imaging studies were ordered.Patient was noted to have evidence of some and dehydration. Patient was noted to be bedridden and had a decubitus ulcers to left ischial area as well sacral area. The patient was discussed with Dr. Dennis Burger for inpatient management Labs Test 12/28/17 17:05 White Blood Count 15.8 K/UL (4.8-10.8) Red Blood Count 4.32 M/UL (4.70-6.10) Hemoglobin 12.1 G/DL (14.2-18.0) Hematocrit 37.7 % (42.0-52.0) Mean Corpuscular Volume 87 FL (80-99) Mean Corpuscular Hemoglobin 28.1 PG (27.0-31.0) Mean Corpuscular Hemoglobin Concent 32.2 G/DL (32.0-36.0) Red Cell Distribution Width 14.4 % (11.6-14.8) Platelet Count 262 K/UL (150-450) Mean Platelet Volume 6.3 FL (6.5-10.1) Neutrophils (%) (Auto) 82.9 % (45.0-75.0) Lymphocytes (%) (Auto) 8.5 % (20.0-45.0) Monocytes (%) (Auto) 7.9 % (1.0-10.0) Eosinophils (%) (Auto) 0.2 % (0.0-3.0) Basophils (%) (Auto) 0.4 % (0.0-2.0) Sodium Level 140 MMOL/L (136-145) Potassium Level 4.7 MMOL/L (3.5-5.1) Chloride Level 107 MMOL/L (98-107) Carbon Dioxide Level 27 MMOL/L (21-32) Anion Gap 6 mmol/L (5-15) Blood Urea Nitrogen 54 mg/dL (7-18) Creatinine 1.4 MG/DL (0.55-1.30) Estimat Glomerular Filtration Rate mL/min (>60) Glucose Level 130 MG/DL (74-106) Lactic Acid Level 2.10 mmol/L (0.66-2.22) Calcium Level 9.0 MG/DL (8.5-10.1) Total Bilirubin 0.4 MG/DL (0.2-1.0) Aspartate Amino Transf (AST/SGOT) 90 U/L (15-37) Alanine Aminotransferase (ALT/SGPT) 101 U/L (12-78) Alkaline Phosphatase 103 U/L (46-116) Total Creatine Kinase 879 U/L (26-308) Creatine Kinase MB 3.5 NG/ML (0.0-3.6) Creatine Kinase MB Relative Index 0.3 Troponin I 0.001 ng/mL (0.000-0.056) Total Protein 7.4 G/DL (6.4-8.2) Albumin 2.0 G/DL (3.4-5.0) Globulin 5.4 g/dL Albumin/Globulin Ratio 0.4 (1.0-2.7) Last Vital Signs Date Time Temp Pulse Resp B/P (MAP) Pulse Ox O2 Delivery O2 Flow Rate FiO2 12/28/17 14:07 97.3 7 16 135/75 98 97.3 Status: unchanged Disposition: ADMITTED INPATIENT Condition: Serious Gary Armijo Dec 28, 2017 14:27
[2017-12-28 14:50] VITALS: BP 135/75
[2017-12-28] MEDS ORDERED: Norco 5mg/325mg tab ORAL ONE (16:45)
[2017-12-28 17:19] LABS: BASOPHILS % (AUTO) 0.4 % (0.0-2.0); EOSINOPHILS % (AUTO) 0.2 % (0.0-3.0); HEMATOCRIT 37.7 % (42.0-52.0); HEMOGLOBIN 12.1 G/DL (14.2-18.0); LYMPHOCYTES % (AUTO) 8.5 % (20.0-45.0); MEAN CORPUSCULAR VOLUME 87 FL (80-99); MONOCYTES % (AUTO) 7.9 % (1.0-10.0); NEUTROPHILS % (AUTO) 82.9 % (45.0-75.0); PLATELET COUNT 262 K/UL (150-450); RED BLOOD COUNT 4.32 M/UL (4.70-6.10); RED CELL DISTRIBUTION WIDTH 14.4 % (11.6-14.8); WHITE BLOOD COUNT 15.8 K/UL (4.8-10.8)
[2017-12-28 17:27] LABS: ANION GAP 6 mmol/L (5-15); BLOOD UREA NITROGEN 54 mg/dL (7-18); CARBON DIOXIDE 27 MMOL/L (21-32); CHLORIDE 107 MMOL/L (98-107); CREATININE 1.4 MG/DL (0.55-1.30); POTASSIUM 4.7 MMOL/L (3.5-5.1); SODIUM 140 MMOL/L (136-145)
[2017-12-28 17:40] LABS: ALANINE AMINOTRANSFERASE 101 U/L (12-78); ALBUMIN/GLOBULIN RATIO 0.4 (1.0-2.7); ALKALINE PHOSPHATASE 103 U/L (46-116); ASPARTATE AMINO TRANSFERASE 90 U/L (15-37); BILIRUBIN,TOTAL 0.4 MG/DL (0.2-1.0); CKMB 3.5 NG/ML (0.0-3.6); CREATINE KINASE 879 U/L (26-308)
[2017-12-28 19:20] VITALS: BP 129/63
[2017-12-29] VITALS: BP 144/96
[2017-12-29 04:00] VITALS: BP 134/76
[2017-12-29 08:00] VITALS: BP 128/58
[2017-12-29] MEDS: Metoprolol Succinate XL 25mg tab ORAL SCH (09:28)
[2017-12-29] MEDS: Aspirin Baby 81mg ORAL SCH (09:28)
[2017-12-29] MEDS: Amiodarone 200mg tab ORAL SCH (09:28)
[2017-12-29] MEDS: Midodrine 10mg tab ORAL SCH ×3 (09:28→17:36)
[2017-12-29] MEDS: Bicalutamide 50mg tab ORAL SCH (09:28)
--- NOTE | 2017-12-29 09:43 | Diagnostic Imaging Report ---
Indication: Reason For Exam: SOB Technique: XRAY Chest 1v. Comparison: 11/05/2014 Findings: The cardiomediastinal silhouette is stable. There are no acute infiltrates. The aorta is elongated. There is an ICD in place. No pleural fluid. Impression: No acute abnormality. .
[2017-12-29] MEDS ORDERED: NS 500ML ONE (10:00)
[2017-12-29] MEDS: Norco 5mg/325mg tab ORAL PRN (10:40)
[2017-12-29 12:00] VITALS: BP 102/46
[2017-12-29] MEDS: D5 1/2NS 1,000 ML IV SCH ×2 (13:12→20:26)
[2017-12-29 15:58] VITALS: BP 115/53
--- NOTE | 2017-12-29 16:00 | History and Physical Report ---
DATE OF ADMISSION: 12/28/2017 CHIEF COMPLAINT: Multiple wounds. HISTORY OF PRESENT ILLNESS: The patient is an unfortunate male, who sustained a left hip fracture. He is status post ORIF approximately a month ago. He has a history of conduction system disease, status post pacemaker; dementia; hypertension; orthostatic hypotension. He was admitted from home with complaints of worsening decubitus ulcers. Of note, the patient was previously admitted. It was recommended at that time the patient go to a chcf facility because of wound on the left hip. Family declined because they did not want to pay the co-pay for the chcf facility. They felt that they had enough help at home to adequate care for the patient. Since while being at home, he has had developed multiple pressure ulcers over the buttocks and lower extremities and upper back area. He is now admitted for further evaluation and care. PAST MEDICAL HISTORY: As above. PAST SURGICAL HISTORY: Includes pacemaker and ORIF of the hip. CURRENT MEDICATIONS: Reconciled and reviewed. ALLERGIES: None. FAMILY HISTORY: None. SOCIAL HISTORY: Negative for tobacco, ethanol, or drugs. REVIEW OF SYSTEMS: Unobtainable, as the patient is confused. PHYSICAL EXAMINATION: VITAL SIGNS: Temperature 97.4, pulse 80, respirations 20, and blood pressure 128/58. GENERAL: The patient is a well-developed male, in no apparent distress. HEART: Regular rate and rhythm. LUNGS: Clear. ABDOMEN: Soft, nontender, and nondistended. EXTREMITIES: Without clubbing or cyanosis. The patient has multiple wounds, most with black eschar, some with erythema and some drainage. ASSESSMENT: This is an unfortunate male admitted with multiple pressure ulcers: 1. Multiple pressure ulcers. 2. Hypertension. 3. Orthostatic hypotension. 4. Conduction system disease. 5. Dementia. 6. Recent history of ORIF of the hip. PLAN: Plastic surgery consultation, IV antibiotics. Continue outpatient cardiac regimen. The patient definitely needs placement in chcf facility. We will discuss with the patient's family. Dennis Burger M.D. DR: NOHEMI JOB#: [id number] CC:
--- NOTE | 2017-12-29 16:14 | Cardiology Report ---
APPROVED REPORT EKG Measurement Heart [id number] Sinus rhythm with 1st degree AV block Abnormal ECG
[2017-12-29 19:46] VITALS: BP 131/60
[2017-12-29] MEDS: Heparin 5000 units/ml inj SUBQ SCH (20:27)
[2017-12-30] VITALS: BP 110/81
[2017-12-30 04:00] VITALS: BP 151/69
[2017-12-30] MEDS: Norco 5mg/325mg tab ORAL PRN (05:29)
--- NOTE | 2017-12-30 07:48 | Consultation ---
History of Present Illness General Date patient seen: Dec 30, 2017 Time patient seen: 07:35 Chief Complaint: General Complaint Referring physician: Dr. Burger Reason for Consultation: Multiple Pressure ulcers Present Illness HPI Asked to evaluate this 82 yom who was admitted to [facility] with multiple pressure ulcers. He was admitted earlier this month and was seen by me for a right trochanter pressure ulcer. At that time he was a few weeks s/p Right hip ORIF. It was recommended that he go to a SNF but family wished to take him home. He was readmitted to [facility] 12/28/17 with more pressure ulcers. He is bedridden. He was started on hydrogel to the ulcers upon this admission. He has ulcers now on the left shoulder, left hip, right buttock, and left knee and LE. Allergies: Coded Allergies: No Known Allergies (Unverified , 05/04/12) Medication History Scheduled Amiodarone Hcl* (Cordarone*), 200 MG ORAL DAILY Amlodipine Besylate (Norvasc), 2.5 MG ORAL BID Aspirin (Aspirin), 81 MG PO DAILY, (Reported) Bicalutamide* (Bicalutamide*), 50 MG ORAL DAILY, (Reported) Finasteride (Finasteride), 5 PO DAILY, (Reported) Metoprolol Succinate* (Metoprolol Succinate*), 25 MG ORAL DAILY, (Reported) Midodrine (Midodrine HCl), 10 MG ORAL THREE TIMES A DAY Pantoprazole Sodium (Protonix), 40 MG PO DAILY, (Reported) Simvastatin (Zocor), 20 MG PO QHS, (Reported) Patient History Limited by: medical condition History Provided By: Medical Record Healthcare decision maker Melly Resuscitation status Full Code Advanced Directive on File No Review of Systems Constitutional: Reports: no symptoms ENT: Reports: no symptoms Genitourinary: Reports: incontinence Musculoskeletal: Reports: muscle stiffness Skin: Reports: see HPI Physical Exam General Appearance: no apparent distress Lines, tubes and drains: peripheral Respiratory/Chest: no respiratory distress Abdomen: soft Extremities: no edema Skin Exam: other - Unstageable pressure ulcers of the left shoulder, left trochanter, left lateral knee and LLE with intact dry eschar. Periskin with no erythema warmth or crepitus. Right trochanter ulcer appears larger with eschar still present but no erythema warmth or crepitus. Right buttock ulcer with superficial skin tear and clean pink base. Right lateral buttock ulcer with adherent eschar present. Musculoskeletal: atrophy, other - Flexion contracture at the knees and hips. Last 24 Hour Vital Signs Date Time Temp Pulse Resp B/P (MAP) Pulse Ox O2 Delivery O2 Flow Rate FiO2 12/30/17 04:00 98.4 85 20 151/69 94 98.4 12/30/17 00:00 99.0 56 20 110/81 96 99.0 12/29/17 19:46 99.0 76 20 131/60 91 99.0 12/29/17 17:36 69 115/53 12/29/17 15:58 98.2 69 18 115/53 98 Room Air 98.2 12/29/17 12:00 98.4 67 20 102/46 92 98.4 12/29/17 09:28 80 128/58 12/29/17 09:28 80 128/58 12/29/17 08:00 97.4 80 20 128/58 97.4 Intake and Output 12/29/17 12/30/17 19:00 07:00 Intake Total 690 ml 600 ml Balance 690 ml 600 ml Intake Oral 540 ml IV Total 150 ml 600 ml # Voids 2 Height (Feet): 6 Height (Inches): 1.00 Weight (Pounds): 145 Medications Current Medications Medications (Trade) Dose Ordered Sig/Yamile Route PRN Reason Start Time Stop Time Status Last Admin Dose Admin Acetaminophen/ Hydrocodone Bitart ([place] 5/325) 1 tab Q6H PRN ORAL Severe Pain (Pain Scale 7-10) 12/28/17 22:15 01/04/18 22:14 12/30/17 05:29 Amiodarone HCl (Cordarone) 200 mg DAILY ORAL 12/29/17 09:00 01/28/18 08:59 12/29/17 09:28 Amlodipine Besylate (Norvasc) 2.5 mg BID ORAL 12/29/17 09:00 01/28/18 08:59 12/29/17 17:36 Aspirin (ASA) 81 mg DAILY ORAL 12/29/17 09:00 01/28/18 08:59 12/29/17 09:28 Bicalutamide (Casodex) 50 mg DAILY ORAL 12/29/17 09:00 01/03/18 08:59 12/29/17 09:28 Dextrose/Sodium Chloride 1,000 ml @ 75 mls/hr [id number] IV 12/29/17 12:45 01/28/18 12:44 12/29/17 20:26 Finasteride (Proscar) 5 mg DAILY ORAL 12/29/17 09:00 01/28/18 08:59 12/29/17 09:28 Heparin Sodium (Porcine) (Heparin 5000 units/ml) 5,000 units EVERY 12 HOURS SUBQ 12/29/17 21:00 01/28/18 20:59 12/29/17 20:27 Metoprolol Succinate (Toprol XL) 25 mg DAILY ORAL 12/29/17 09:00 01/28/18 08:59 12/29/17 09:28 Midodrine (Pro-Amatine) 10 mg THREE TIMES A DAY ORAL 12/29/17 09:00 01/28/18 08:59 12/29/17 17:36 Assessment/Plan Assessment/Plan Patient readmitted to [facility] from home with multiple pressure ulcers. Patient likely developed the left sided pressure ulcers from trying to offload the original right trochanter ulcer while at home. It is unclear what type of mattress he had at home. At this time the eschars on the ulcers are too adherent to warrant debridement. Once these eschars loosen they should be surgically debrided in order to promote healing. Healing however will be difficult in this patient given the size of the wounds, the location of the wounds, and his likely low nutrition level (Albumin of 2.0) which will be confirmed with a prealbumin level. Also, once the patient is stabilized, he should be recommended to be transferred to a SNF as his wounds have demonstrated progression while at home. Will order prealbumin level, low airloss mattress, wound cultures and new wound care orders. No surgical intervention at this time. Thank you for allowing me to participate in this patient's care. TYSON FELDMAN Dec 30, 2017 07:48
[2017-12-30 08:00] VITALS: BP 134/64
--- NOTE | 2017-12-30 09:01 | General Progress Note ---
Assessment/Plan Problem List: (1) Hx of gastrointestinal hemorrhage ICD Codes: Z87.19 - Personal history of other diseases of the digestive system SNOMED: 150748151 (2) Congestive cardiac failure ICD Codes: I50.9 - Heart failure, unspecified SNOMED: 50737181 (3) Failure to thrive SNOMED: 50842683 (4) Decubitus ulcer ICD Codes: L89.90 - Pressure ulcer of unspecified site, unspecified stage SNOMED: 158774719 (5) General weakness ICD Codes: R53.1 - Weakness SNOMED: 79527287 (6) Toxic metabolic encephalopathy ICD Codes: G92 - Toxic encephalopathy SNOMED: 376622056 (7) Acute renal failure ICD Codes: N17.9 - Acute kidney failure, unspecified SNOMED: 39769506 Status: stable, progressing Assessment/Plan encourage pos wound care follow labs abx will need snf Subjective ROS Limited/Unobtainable: No Constitutional: Reports: malaise, weakness HEENT: Reports: no symptoms Cardiovascular: Reports: no symptoms Respiratory: Reports: no symptoms Gastrointestinal/Abdominal: Reports: no symptoms Genitourinary: Reports: no symptoms Neurologic/Psychiatric: Reports: pre-existing deficit Endocrine: Reports: no symptoms Hematologic/Lymphatic: Reports: no symptoms Allergies: Coded Allergies: No Known Allergies (Unverified , 05/04/12) All Systems: reviewed and negative except above Subjective no events. w/o complaints. eating >50%. plastics appreciated. Objective Last 24 Hour Vital Signs Date Time Temp Pulse Resp B/P (MAP) Pulse Ox O2 Delivery O2 Flow Rate FiO2 12/30/17 04:00 98.4 85 20 151/69 94 98.4 12/30/17 00:00 99.0 56 20 110/81 96 99.0 12/29/17 19:46 99.0 76 20 131/60 91 99.0 12/29/17 17:36 69 115/53 12/29/17 15:58 98.2 69 18 115/53 98 Room Air 98.2 12/29/17 12:00 98.4 67 20 102/46 92 98.4 12/29/17 09:28 80 128/58 12/29/17 09:28 80 128/58 Intake and Output 12/29/17 12/30/17 19:00 07:00 Intake Total 690 ml 950 ml Balance 690 ml 950 ml Intake Oral 540 ml 350 ml IV Total 150 ml 600 ml # Voids 2 2 Height (Feet): 6 Height (Inches): 1.00 Weight (Pounds): 145 General Appearance: WD/WN, alert Neck: supple Cardiovascular: regular rhythm Respiratory/Chest: chest wall non-tender, lungs clear, normal breath sounds Abdomen: normal bowel sounds, non tender, soft, no organomegaly Edema: no edema noted Arm (L), no edema noted Arm (R), no edema noted Leg (L), no edema noted Leg (R), no edema noted Pedal (L), no edema noted Pedal (R), no edema noted Generalized Skin: other - multiple wounds YOU ROMO Dec 30, 2017 09:01
[2017-12-30] MEDS: Midodrine 10mg tab ORAL SCH ×3 (09:19→17:47)
[2017-12-30] MEDS: Aspirin Baby 81mg ORAL SCH (09:19)
[2017-12-30] MEDS: Bicalutamide 50mg tab ORAL SCH (09:20)
[2017-12-30] MEDS: Metoprolol Succinate XL 25mg tab ORAL SCH (09:20)
[2017-12-30] MEDS: Amiodarone 200mg tab ORAL SCH (09:20)
[2017-12-30] MEDS: Heparin 5000 units/ml inj SUBQ SCH ×2 (09:21→21:07)
[2017-12-30 11:22] LABS: HEMATOCRIT 37.7 % (42.0-52.0); HEMOGLOBIN 11.8 G/DL (14.2-18.0); MEAN CORPUSCULAR VOLUME 88 FL (80-99); PLATELET COUNT 268 K/UL (150-450); RED BLOOD COUNT 4.27 M/UL (4.70-6.10); RED CELL DISTRIBUTION WIDTH 14.8 % (11.6-14.8); WHITE BLOOD COUNT 15.7 K/UL (4.8-10.8)
[2017-12-30 12:00] VITALS: BP 126/57
[2017-12-30 12:02] LABS: ALANINE AMINOTRANSFERASE 85 U/L (12-78); ALBUMIN 1.9 G/DL (3.4-5.0); ALBUMIN/GLOBULIN RATIO 0.4 (1.0-2.7); ALKALINE PHOSPHATASE 108 U/L (46-116); ANION GAP 8 mmol/L (5-15); ASPARTATE AMINO TRANSFERASE 80 U/L (15-37); BILIRUBIN,TOTAL 0.4 MG/DL (0.2-1.0); BLOOD UREA NITROGEN 42 mg/dL (7-18); CALCIUM 8.9 MG/DL (8.5-10.1); CARBON DIOXIDE 26 MMOL/L (21-32); CHLORIDE 110 MMOL/L (98-107); CREATININE 1.1 MG/DL (0.55-1.30); POTASSIUM 5.1 MMOL/L (3.5-5.1); SODIUM 144 MMOL/L (136-145)
[2017-12-30] MEDS: D5 1/2NS 1,000 ML IV SCH (14:28)
[2017-12-30 16:15] VITALS: BP 134/37
[2017-12-30 20:00] VITALS: BP 128/89
[2017-12-31] VITALS: BP 132/78
[2017-12-31] MEDS: Norco 5mg/325mg tab ORAL PRN ×2 (02:48→17:14)
[2017-12-31] MEDS: D5 1/2NS 1,000 ML IV SCH ×2 (03:55→17:14)
[2017-12-31 04:00] VITALS: BP 123/56
--- NOTE | 2017-12-31 07:36 | Wound Care Consultation ---
Wound Assessment Wound Assessment #1: Wound Number: 1 Wound Present on Admission: Yes New Wound: No Status Change of Wound: No Wound Location Body Site Modif: left, lateral Wound Location Body Site: thigh Wound Type: pressure ulcer Aliza Test: Does not Aliza Pressure Ulcer Stage: Deep Tissue Injury Wound Thickness: Full Thickness Wound Length: 1.5 Wound Width: 7.5 Wound Depth: utd Percent of Wound Purple/Maroon: 100 Wound Drainage Amount: None Wound Drainage Odor: None/Absent Tissue Surrounding Wound: Erythemic Wound General Appearance: Reddened - purple/maroon Wound Assessment #2: Wound Number: 2 Wound Present on Admission: Yes New Wound: No Status Change of Wound: No Wound Location Body Site Modif: left, lateral Wound Location Body Site: malleolus/ankle Wound Type: pressure ulcer Aliza Test: Does not Aliza Pressure Ulcer Stage: Deep Tissue Injury Wound Thickness: Full Thickness Wound Length: 2.5 Wound Width: 3.0 Wound Depth: utd Percent of Wound Purple/Maroon: 100 Wound Drainage Amount: None Wound Drainage Odor: None/Absent Tissue Surrounding Wound: Erythemic Wound General Appearance: Reddened - purple/maroon Wound Assessment #3: Wound Number: 3 Wound Present on Admission: Yes New Wound: No Status Change of Wound: No Wound Location Body Site Modif: left Wound Location Body Site: trochanter - extending to left buttock Wound Type: pressure ulcer Aliza Test: Does not Aliza Pressure Ulcer Stage: Unstageable Wound Thickness: Full Thickness Wound Length: 12.0 Wound Width: 9.5 Wound Depth: utd Percent of Wound Bed Yellow/Wh: 20 Percent of Wound Black/Brown: 80 Wound Drainage Description: Serosanguineous Wound Drainage Amount: Moderate Wound Drainage Odor: Foul Odor Tissue Surrounding Wound: Macerated Wound General Appearance: Blackened - yellow, Draining, Necrotic Wound Assessment #4: Wound Number: 4 Wound Present on Admission: Yes New Wound: No Status Change of Wound: No Wound Location Body Site Modif: right Wound Location Body Site: trochanter - extending to right buttock Wound Type: pressure ulcer Aliza Test: Does not Aliza Pressure Ulcer Stage: Unstageable Wound Thickness: Full Thickness Wound Length: 10.0 Wound Width: 13.0 Wound Depth: utd Percent of Wound Bed Yellow/Wh: 60 Percent of Wound Black/Brown: 40 Wound Drainage Description: Serosanguineous Wound Drainage Amount: Moderate Wound Drainage Odor: Foul Odor Tissue Surrounding Wound: Macerated Wound General Appearance: Blackened - yellow, Draining, Necrotic Wound Assessment #5: Wound Number: 5 Wound Present on Admission: Yes New Wound: No Status Change of Wound: No Wound Location Body Site Modif: right, lower, anterior Wound Location Body Site: thigh Wound Type: pressure ulcer Aliza Test: Does not Aliza Pressure Ulcer Stage: Unstageable Wound Thickness: Full Thickness Wound Length: 4.0 Wound Width: 4.0 Wound Depth: utd Percent of Wound Bed Yellow/Wh: 40 Percent of Wound Purple/Maroon: 60 Wound Drainage Description: Serosanguineous Wound Drainage Amount: Moderate Wound Drainage Odor: None/Absent Tissue Surrounding Wound: Macerated Wound General Appearance: Reddened - yellow,maroon, Draining Wound Assessment #6: Wound Number: 6 Wound Present on Admission: Yes New Wound: No Status Change of Wound: No Wound Location Body Site Modif: right, medial Wound Location Body Site: thigh Wound Type: pressure ulcer Aliza Test: Does not Aliza Pressure Ulcer Stage: Unstageable Wound Thickness: Full Thickness Wound Length: 2.0 Wound Width: 2.0 Wound Depth: utd Percent of Wound Purple/Maroon: 100 Wound Drainage Description: Serosanguineous Wound Drainage Amount: Scant Wound Drainage Odor: None/Absent Tissue Surrounding Wound: Macerated Wound General Appearance: Reddened - purple/maroon, Draining Wound Assessment #7: Wound Number: 7 Wound Present on Admission: Yes New Wound: No Status Change of Wound: No Wound Location Body Site Modif: right, medial Wound Location Body Site: knee Wound Type: pressure ulcer Aliza Test: Does not Aliza Pressure Ulcer Stage: Deep Tissue Injury - scattered Wound Thickness: Full Thickness Wound Length: 3.0 Wound Width: 6.0 Wound Depth: utd Percent of Wound [place]/Red: 100 - deep Wound Drainage Amount: None Wound Drainage Odor: None/Absent Tissue Surrounding Wound: Erythemic Wound General Appearance: Reddened - deep red Wound Assessment #8: Wound Number: 8 Wound Present on Admission: Yes New Wound: No Status Change of Wound: No Wound Location Body Site Modif: right, lateral Wound Location Body Site: malleolus/ankle Wound Type: pressure ulcer Aliza Test: Does not Aliza Pressure Ulcer Stage: Deep Tissue Injury Wound Thickness: Full Thickness Wound Length: 2.0 Wound Width: 3.0 Wound Depth: utd Percent of Wound Purple/Maroon: 100 Wound Drainage Amount: None Wound Drainage Odor: None/Absent Tissue Surrounding Wound: Erythemic Wound General Appearance: Reddened - purple/maroon Wound Assessment #9: Wound Number: 9 Wound Present on Admission: Yes New Wound: No Status Change of Wound: No Wound Location Body Site Modif: left Wound Location Body Site: iliac crest Wound Type: pressure ulcer Aliza Test: Does not Aliza Pressure Ulcer Stage: Deep Tissue Injury Wound Thickness: Full Thickness Wound Length: 2.0 Wound Width: 2.0 Wound Depth: utd Percent of Wound Purple/Maroon: 100 Wound Drainage Amount: None Wound Drainage Odor: None/Absent Tissue Surrounding Wound: Intact Wound General Appearance: Reddened - purple/maroon Wound Assessment #10: Wound Number: 10 Wound Present on Admission: Yes New Wound: No Status Change of Wound: No Wound Location Body Site Modif: mid Wound Location Body Site: sacral Wound Type: pressure ulcer Aliza Test: Does not Aliza Pressure Ulcer Stage: Unstageable Wound Thickness: Full Thickness Wound Length: 2.5 Wound Width: 2.0 Wound Depth: utd Percent of Wound [place]/Red: 10 Percent of Wound Purple/Maroon: 90 Wound Drainage Description: Serosanguineous Wound Drainage Amount: Scant Wound Drainage Odor: None/Absent Tissue Surrounding Wound: Macerated Wound General Appearance: Reddened, Draining Wound Assessment #11: Wound Number: 11 Wound Present on Admission: Yes New Wound: No Status Change of Wound: No Wound Location Body Site Modif: right Wound Location Body Site: buttocks Wound Type: pressure ulcer Aliza Test: Does not Aliza Pressure Ulcer Stage: Deep Tissue Injury Wound Thickness: Full Thickness Wound Length: 11.0 Wound Width: 4.0 Wound Depth: utd Percent of Wound Purple/Maroon: 100 Wound Drainage Amount: None Wound Drainage Odor: None/Absent Tissue Surrounding Wound: Erythemic Wound General Appearance: Reddened - purple/maroon Wound Assessment #12: Wound Number: 12 Wound Present on Admission: Yes New Wound: No Status Change of Wound: No Wound Location Body Site Modif: left Wound Location Body Site: ischial tuberosity Wound Type: pressure ulcer Aliza Test: Does not Aliza Pressure Ulcer Stage: II Wound Thickness: Partial Thickness Wound Length: 4.0 Wound Width: 4.0 Wound Depth: 0.1 Percent of Wound [place]/Red: 100 Wound Drainage Description: Serosanguineous Wound Drainage Amount: Scant Wound Drainage Odor: None/Absent Tissue Surrounding Wound: DTI, purple/maroon in color Wound General Appearance: Reddened, Draining Wound Assessment #13: Wound Number: 13 Wound Present on Admission: Yes New Wound: No Status Change of Wound: No Wound Location Body Site Modif: right Wound Location Body Site: ischial tuberosity Wound Type: pressure ulcer Aliza Test: Does not Aliza Pressure Ulcer Stage: II Wound Thickness: Partial Thickness Wound Length: 5.0 Wound Width: 3.5 Wound Depth: 0.1 Percent of Wound [place]/Red: 100 Wound Drainage Description: Serosanguineous Wound Drainage Amount: Scant Wound Drainage Odor: None/Absent Tissue Surrounding Wound: DTI, purple/maroon Wound General Appearance: Reddened, Draining Wound Assessment #14: Wound Number: 14 Wound Present on Admission: Yes New Wound: No Status Change of Wound: No Wound Location Body Site: back Wound Type: pressure ulcer Aliza Test: Does not Aliza Pressure Ulcer Stage: Deep Tissue Injury - scattered Wound Thickness: Full Thickness Percent of Wound [place]/Red: 100 - deep Wound Drainage Amount: None Tissue Surrounding Wound: Erythemic Wound General Appearance: Reddened - deep red Wound Assessment #15: Wound Number: 15 Wound Present on Admission: Yes New Wound: No Status Change of Wound: No Wound Location Body Site Modif: left, medial Wound Location Body Site: knee Wound Type: pressure ulcer Aliza Test: Does not Aliza Pressure Ulcer Stage: Unstageable Wound Thickness: Full Thickness Wound Length: 4.5 Wound Width: 4.5 Wound Depth: utd Percent of Wound Bed Yellow/Wh: 10 Percent of Wound Black/Brown: 90 Wound Drainage Description: Serosanguineous Wound Drainage Amount: Moderate Wound Drainage Odor: None/Absent Tissue Surrounding Wound: Macerated Wound General Appearance: Blackened - yellow, Draining, Necrotic Wound Assessment #16: Wound Number: 16 Wound Present on Admission: Yes New Wound: No Status Change of Wound: No Wound Location Body Site Modif: left, lower, medial Wound Location Body Site: leg Wound Type: pressure ulcer Aliza Test: Does not Aliza Pressure Ulcer Stage: Unstageable Wound Thickness: Full Thickness Wound Length: 3.0 Wound Width: 3.0 Wound Depth: utd Percent of Wound Bed Yellow/Wh: 80 Percent of Wound Black/Brown: 20 Wound Drainage Description: Serosanguineous Wound Drainage Amount: Scant Wound Drainage Odor: None/Absent Tissue Surrounding Wound: Sacttered DTI, Purple/maroon Wound General Appearance: Blackened - yellow, Draining, Necrotic Wound Assessment #17: Wound Number: 17 Wound Present on Admission: Yes New Wound: No Status Change of Wound: No Wound Location Body Site Modif: left, medial Wound Location Body Site: malleolus/ankle Wound Type: pressure ulcer Aliza Test: Does not Aliza Pressure Ulcer Stage: Deep Tissue Injury Wound Thickness: Full Thickness Wound Length: 2.0 Wound Width: 2.0 Wound Depth: utd Percent of Wound Purple/Maroon: 100 Wound Drainage Amount: None Wound Drainage Odor: None/Absent Tissue Surrounding Wound: Erythemic Wound General Appearance: Reddened - purple/maroon Wound Assessment #18: Wound Number: 18 Wound Present on Admission: Yes New Wound: No Status Change of Wound: No Wound Location Body Site Modif: left, medial Wound Location Body Site: foot Wound Type: pressure ulcer Aliza Test: Does not Aliza Pressure Ulcer Stage: Deep Tissue Injury Wound Thickness: Full Thickness Wound Length: 4.0 Wound Width: 2.0 Wound Depth: utd Percent of Wound Purple/Maroon: 100 Wound Drainage Amount: None Wound Drainage Odor: None/Absent Tissue Surrounding Wound: Intact Wound General Appearance: Reddened - purple/maroon Wound Assessment #19: Wound Number: 19 Wound Present on Admission: Yes New Wound: No Status Change of Wound: No Wound Location Body Site Modif: left, dorsal Wound Location Body Site: foot Wound Type: pressure ulcer Aliza Test: Does not Aliza Pressure Ulcer Stage: Deep Tissue Injury Wound Thickness: Full Thickness Wound Length: 2.0 Wound Width: 1.5 Wound Depth: utd Percent of Wound Purple/Maroon: 100 Wound Drainage Amount: None Wound Drainage Odor: None/Absent Tissue Surrounding Wound: Intact Wound General Appearance: Reddened - maroon Wound Assessment #20: Wound Number: 20 Wound Present on Admission: Yes New Wound: No Status Change of Wound: No Wound Location Body Site Modif: left Wound Location Body Site: shoulder Wound Type: pressure ulcer Aliza Test: Does not Aliza Pressure Ulcer Stage: Unstageable Wound Thickness: Full Thickness Wound Length: 7.5 Wound Width: 8.5 Wound Depth: utd Percent of Wound Bed Yellow/Wh: 10 Percent of Wound Purple/Maroon: 90 Wound Drainage Description: Serosanguineous Wound Drainage Amount: Moderate Wound Drainage Odor: None/Absent Tissue Surrounding Wound: Macerated Wound General Appearance: Reddened - yellow/maroon, Draining Wound Assessment #21: Wound Number: 21 Wound Present on Admission: Yes New Wound: No Status Change of Wound: No Wound Location Body Site Modif: left Wound Location Body Site: sacral Wound Type: pressure ulcer Aliza Test: Does not Aliza Pressure Ulcer Stage: Deep Tissue Injury Wound Thickness: Full Thickness Wound Length: 5.0 Wound Width: 5.0 Wound Depth: utd Percent of Wound [place]/Red: 100 - deep Wound Drainage Amount: None Wound Drainage Odor: None/Absent Tissue Surrounding Wound: Intact Wound General Appearance: Reddened - deep red Wound Comment #1 Left lateral thigh DTI pressure ulcer #2 Left malleolus DTI pressure ulcer #3 Left trochanter unstageable/IV pressure ulcer extending to left buttock #4 Right trochanter unstageable/IV pressure ulcer extending to right buttock #5 Right lower thigh unstageable pressure ulcer #6 Right medial thigh unstageable pressure ulcer #7 Right medial knee scattered DTI pressure ulcer #8 Right lateral malleolus DTI pressure ulcer #9 Left iliac crest DTI pressure ulcer #10 Mid sacral unstageable pressure ulcer #11 Right buttock DTI pressure ulcer #12 Left ischial tuberosity stage II pressure ulcer. Surrounding tissue with DTI purple/maroon in color #13 Right ischial tuberosity stage II pressure ulcer. Surrounding tissue with DTI purple/maroon in color #14 Scattered DTI pressure ulcer on back area #15 Left medial knee unstageable pressure ulcer #16 Left medial lower leg unstageable pressure ulcer #17 Left medial malleolus DTI pressure ulcer #18 Left medial foot DTI pressure ulcer #19 Left dorsal foot DTI pressure ulcer #20 Left shoulder unstageable pressure ulcer. surrounding skin with DTI, maroon in color #21 Left sacral area DTI pressure ulcer Recommendation -Local wound care per protocol -Keep clean and dry -Turn and reposition -Offload both heels -Heel protector on both heels -Optimize nutrition -Low air loss mattress -Assess and f/u accordingly for any changes BIRGIT DUEÑAS RN Dec 31, 2017 07:36
[2017-12-31 08:00] VITALS: BP 111/57
--- NOTE | 2017-12-31 08:51 | General Progress Note ---
Assessment/Plan Problem List: (1) Hx of gastrointestinal hemorrhage ICD Codes: Z87.19 - Personal history of other diseases of the digestive system SNOMED: 362563836 (2) Congestive cardiac failure ICD Codes: I50.9 - Heart failure, unspecified SNOMED: 74013628 (3) Failure to thrive SNOMED: 14282780 (4) Decubitus ulcer ICD Codes: L89.90 - Pressure ulcer of unspecified site, unspecified stage SNOMED: 838150584 (5) General weakness ICD Codes: R53.1 - Weakness SNOMED: 67782524 (6) Toxic metabolic encephalopathy ICD Codes: G92 - Toxic encephalopathy SNOMED: 960580496 (7) Acute renal failure ICD Codes: N17.9 - Acute kidney failure, unspecified SNOMED: 23304980 Status: stable, deteriorating Assessment/Plan encourage pos wound care follow labs abx hospice eval at dtr request Subjective ROS Limited/Unobtainable: No Constitutional: Reports: malaise, weakness HEENT: Reports: no symptoms Cardiovascular: Reports: no symptoms Respiratory: Reports: no symptoms Gastrointestinal/Abdominal: Reports: no symptoms Genitourinary: Reports: no symptoms Neurologic/Psychiatric: Reports: no symptoms Endocrine: Reports: no symptoms Hematologic/Lymphatic: Reports: no symptoms Allergies: Coded Allergies: No Known Allergies (Unverified , 05/04/12) All Systems: reviewed and negative except above Subjective no events. w/o complaints. eating >50%. plastics appreciated. d/w dtr in law. requesting to speak to hospice Objective Last 24 Hour Vital Signs Date Time Temp Pulse Resp B/P (MAP) Pulse Ox O2 Delivery O2 Flow Rate FiO2 12/31/17 04:00 98.7 76 20 123/56 97 98.7 12/31/17 00:00 97.7 65 18 132/78 98 97.7 12/30/17 20:00 97.9 78 20 128/89 98 97.9 12/30/17 17:47 80 134/37 12/30/17 16:15 98.6 80 19 134/37 Room Air 98.6 12/30/17 12:00 97.5 70 19 126/57 98 97.5 12/30/17 09:26 83 134/64 12/30/17 09:20 83 134/64 Intake and Output 12/30/17 12/31/17 19:00 07:00 Intake Total 1230 ml 825 ml Output Total 300 ml 600 ml Balance 930 ml 225 ml Intake Oral 480 ml IV Total 750 ml 825 ml Output Urine Total 300 ml 600 ml # Voids 1 Laboratory Tests 12/30/17 10:55: White Blood Count 15.7H, Red Blood Count 4.27L, Hemoglobin 11.8L, Hematocrit 37.7L, Mean Corpuscular Volume 88, Mean Corpuscular Hemoglobin 27.7, Mean Corpuscular Hemoglobin Concent 31.3L, Red Cell Distribution Width 14.8, Platelet Count 268, Mean Platelet Volume 6.3L, Neutrophils (%) (Auto) , Lymphocytes (%) (Auto) , Monocytes (%) (Auto) , Eosinophils (%) (Auto) , Basophils (%) (Auto) , Differential Total Cells Counted 100, Neutrophils % ( Manual) 82H, Lymphocytes % (Manual) 14L, Monocytes % (Manual) 4, Eosinophils % ( Manual) 0, Basophils % (Manual) 0, Band Neutrophils 0, Platelet Estimate Adequate, Platelet Morphology Normal, Red Blood Cell Morphology Normal, Sodium Level 144, Potassium Level 5.1, Chloride Level 110H, Carbon Dioxide Level 26, Anion Gap 8, Blood Urea Nitrogen 42H, Creatinine 1.1, Estimat Glomerular Filtration Rate , Glucose Level 130H, Calcium Level 8.9, Total Bilirubin 0.4, Aspartate Amino Transf (AST/SGOT) 80H, Alanine Aminotransferase (ALT/SGPT) 85H, Alkaline Phosphatase 108, Total Protein 6.9, Albumin 1.9L, Globulin 5.0, Albumin /Globulin Ratio 0.4L, Prealbumin 9 Height (Feet): 6 Height (Inches): 1.00 Weight (Pounds): 145 Objective General Appearance: WD/WN, alert Neck: supple Cardiovascular: regular rhythm Respiratory/Chest: chest wall non-tender, lungs clear, normal breath sounds Abdomen: normal bowel sounds, non tender, soft, no organomegaly Edema: no edema noted Arm (L), no edema noted Arm (R), no edema noted Leg (L), no edema noted Leg (R), no edema noted Pedal (L), no edema noted Pedal (R), no edema noted Generalized Skin: other - multiple wounds YOU ROMO Dec 31, 2017 08:51
[2017-12-31] MEDS: Bicalutamide 50mg tab ORAL SCH (09:20)
[2017-12-31] MEDS: Aspirin Baby 81mg ORAL SCH (09:20)
[2017-12-31] MEDS: Midodrine 10mg tab ORAL SCH ×3 (09:20→17:13)
[2017-12-31] MEDS: Metoprolol Succinate XL 25mg tab ORAL SCH (09:22)
[2017-12-31] MEDS: Amiodarone 200mg tab ORAL SCH (09:22)
[2017-12-31] MEDS: Heparin 5000 units/ml inj SUBQ SCH ×2 (09:25→20:34)
[2017-12-31 12:00] VITALS: BP 110/49
[2017-12-31 15:48] VITALS: BP 135/86
[2017-12-31 20:00] VITALS: BP 110/59
[2018-01-01] VITALS: BP 128/62
[2018-01-01] MEDS: Norco 5mg/325mg tab ORAL PRN ×2 (01:12→21:49)
[2018-01-01 04:00] VITALS: BP 135/60
[2018-01-01 08:07] VITALS: BP 110/63
--- NOTE | 2018-01-01 08:35 | General Progress Note ---
Assessment/Plan Problem List: (1) Hx of gastrointestinal hemorrhage ICD Codes: Z87.19 - Personal history of other diseases of the digestive system SNOMED: 709815844 (2) Congestive cardiac failure ICD Codes: I50.9 - Heart failure, unspecified SNOMED: 79504367 (3) Failure to thrive SNOMED: 76378933 (4) Decubitus ulcer ICD Codes: L89.90 - Pressure ulcer of unspecified site, unspecified stage SNOMED: 720731099 (5) General weakness ICD Codes: R53.1 - Weakness SNOMED: 36452856 (6) Toxic metabolic encephalopathy ICD Codes: G92 - Toxic encephalopathy SNOMED: 514982597 (7) Acute renal failure ICD Codes: N17.9 - Acute kidney failure, unspecified SNOMED: 72844704 Status: stable, progressing Assessment/Plan encourage pos wound care follow labs abx hospice eval at dtr request can dc once hospice arranged and family prepared to accept Subjective ROS Limited/Unobtainable: No Constitutional: Reports: malaise, weakness HEENT: Reports: no symptoms Cardiovascular: Reports: no symptoms Respiratory: Reports: no symptoms Gastrointestinal/Abdominal: Reports: no symptoms Genitourinary: Reports: no symptoms Neurologic/Psychiatric: Reports: pre-existing deficit Endocrine: Reports: no symptoms Hematologic/Lymphatic: Reports: anemia Allergies: Coded Allergies: No Known Allergies (Unverified , 05/04/12) All Systems: reviewed and negative except above Subjective no events. w/o complaints. eating well. getting wound care daily. denies pain Objective Last 24 Hour Vital Signs Date Time Temp Pulse Resp B/P (MAP) Pulse Ox O2 Delivery O2 Flow Rate FiO2 01/01/18 08:07 98.6 70 19 110/63 99 Room Air 98.6 01/01/18 04:00 97.7 70 18 135/60 100 97.7 01/01/18 00:00 97.5 78 20 128/62 98 97.5 12/31/17 20:00 98.1 80 20 110/59 98 98.1 12/31/17 17:13 81 135/86 12/31/17 15:48 98.3 81 21 135/86 95 Room Air 98.3 12/31/17 12:00 98.3 80 18 110/49 95 Room Air 98.3 12/31/17 09:22 76 123/56 12/31/17 09:21 76 123/56 Intake and Output 12/31/17 01/01/18 19:00 07:00 Intake Total 1380 ml 900 ml Output Total 800 ml Balance 580 ml 900 ml Intake Oral 480 ml IV Total 900 ml 900 ml Output Urine Total 800 ml # Voids 4 Height (Feet): 6 Height (Inches): 1.00 Weight (Pounds): 145 Objective General Appearance: WD/WN, alert Neck: supple Cardiovascular: regular rhythm Respiratory/Chest: chest wall non-tender, lungs clear, normal breath sounds Abdomen: normal bowel sounds, non tender, soft, no organomegaly Edema: no edema noted Arm (L), no edema noted Arm (R), no edema noted Leg (L), no edema noted Leg (R), no edema noted Pedal (L), no edema noted Pedal (R), no edema noted Generalized Skin: other - multiple wounds YOU ROMO Jan 01, 2018 08:35
[2018-01-01] MEDS: Midodrine 10mg tab ORAL SCH ×3 (08:39→17:47)
[2018-01-01] MEDS: Aspirin Baby 81mg ORAL SCH (08:39)
[2018-01-01] MEDS: D5 1/2NS 1,000 ML IV SCH ×2 (08:39→21:49)
[2018-01-01] MEDS: Amiodarone 200mg tab ORAL SCH (08:39)
[2018-01-01] MEDS: Bicalutamide 50mg tab ORAL SCH (08:39)
[2018-01-01] MEDS: Metoprolol Succinate XL 25mg tab ORAL SCH (08:40)
[2018-01-01] MEDS: Heparin 5000 units/ml inj SUBQ SCH ×2 (08:41→21:51)
[2018-01-01 11:52] VITALS: BP 133/55
--- NOTE | 2018-01-01 12:55 | Consultation ---
History of Present Illness General Date patient seen: Dec 31, 2017 Chief Complaint: General Complaint Referring physician: Dr. Burger Reason for Consultation: Multiple Pressure ulcers Present Illness HPI 82 yom who was admitted to the hospt with multiple pressure ulcers. He was admitted earlier this month and was seen by me for a right trochanter pressure ulcer. At that time he was a few weeks s/p Right hip ORIF. the pt is severely confused and agitated and yelling. not able to participate and answers the questions. the pt was agitated during the eval and yelling. Allergies: Coded Allergies: No Known Allergies (Unverified , 05/04/12) Medication History Scheduled Amiodarone Hcl* (Cordarone*), 200 MG ORAL DAILY Amlodipine Besylate (Norvasc), 2.5 MG ORAL BID Aspirin (Aspirin), 81 MG PO DAILY, (Reported) Bicalutamide* (Bicalutamide*), 50 MG ORAL DAILY, (Reported) Finasteride (Finasteride), 5 PO DAILY, (Reported) Metoprolol Succinate* (Metoprolol Succinate*), 25 MG ORAL DAILY, (Reported) Midodrine (Midodrine HCl), 10 MG ORAL THREE TIMES A DAY Pantoprazole Sodium (Protonix), 40 MG PO DAILY, (Reported) Simvastatin (Zocor), 20 MG PO QHS, (Reported) Patient History Limited by: medical condition History Provided By: Patient, Medical Record, PMD Healthcare decision maker Melly Resuscitation status Full Code Advanced Directive on File No Past Medical/Surgical History Past Medical/Surgical History: (1) Gastrointestinal hemorrhage (2) Gastrointestinal hemorrhage (3) Gastrointestinal bleed (4) Gastrointestinal bleed (5) Gastrointestinal bleed (6) Gastrointestinal bleed (7) Gastritis (8) Hemorrhoid (9) Hemorrhoid (10) Orthostatic syncope (11) Orthostatic syncope (12) Hx of gastrointestinal hemorrhage (13) Syncope (14) Syncope (15) Orthostatic hypotension (16) Orthostatic hypotension (17) Orthostatic hypotension (18) Pacemaker (19) Pacemaker (20) Orthostatic hypotension (21) Syncope (22) Arrhythmia (23) Gastritis (24) Syncope (25) Congestive cardiac failure (26) Orthostatic syncope (27) Orthostatic hypotension (28) Syncope (29) Orthostatic hypotension (30) Pacemaker (31) Rhabdomyolysis due to statin therapy (32) Injury of lower extremity (33) Orthostatic syncope (34) Fracture (35) Hypertensive emergency without congestive heart failure (36) Syncope (37) Pacemaker (38) Failure to thrive (39) Decubitus ulcer (40) General weakness (41) Congestive cardiac failure (42) Hx of gastrointestinal hemorrhage (43) Acute renal failure (44) Toxic metabolic encephalopathy Review of Systems Psychiatric: Reports: prior hx, anxiety, depressed feelings, emotional problems , hallucinations Physical Exam General Appearance: no apparent distress, alert, confused, agitated Neurologic: alert, disoriented, depressed affect Last 24 Hour Vital Signs Date Time Temp Pulse Resp B/P (MAP) Pulse Ox O2 Delivery O2 Flow Rate FiO2 01/01/18 11:52 97.6 74 18 133/55 97 Room Air 97.6 01/01/18 08:40 70 110/63 01/01/18 08:40 70 110/63 01/01/18 08:07 98.6 70 19 110/63 99 Room Air 98.6 01/01/18 04:00 97.7 70 18 135/60 100 97.7 01/01/18 00:00 97.5 78 20 128/62 98 97.5 12/31/17 20:00 98.1 80 20 110/59 98 98.1 12/31/17 17:13 81 135/86 12/31/17 15:48 98.3 81 21 135/86 95 Room Air 98.3 Intake and Output 12/31/17 01/01/18 19:00 07:00 Intake Total 1380 ml 900 ml Output Total 800 ml Balance 580 ml 900 ml Intake Oral 480 ml IV Total 900 ml 900 ml Output Urine Total 800 ml # Voids 4 Height (Feet): 6 Height (Inches): 1.00 Weight (Pounds): 145 Medications Current Medications Medications (Trade) Dose Ordered Sig/Yamile Route PRN Reason Start Time Stop Time Status Last Admin Dose Admin Acetaminophen/ Hydrocodone Bitart ([place] 5/325) 1 tab Q6H PRN ORAL Severe Pain (Pain Scale 7-10) 12/28/17 22:15 01/04/18 22:14 01/01/18 01:12 Amiodarone HCl (Cordarone) 200 mg DAILY ORAL 12/29/17 09:00 01/28/18 08:59 01/01/18 08:39 Amlodipine Besylate (Norvasc) 2.5 mg BID ORAL 12/29/17 09:00 01/28/18 08:59 01/01/18 08:40 Aspirin (ASA) 81 mg DAILY ORAL 12/29/17 09:00 01/28/18 08:59 01/01/18 08:39 Bicalutamide (Casodex) 50 mg DAILY ORAL 12/29/17 09:00 01/03/18 08:59 01/01/18 08:39 Collagenase (Santyl) 1 applic DAILY TOPIC 12/31/17 12:00 01/30/18 11:59 12/31/17 15:09 Dextrose/Sodium Chloride 1,000 ml @ 75 mls/hr [id number] IV 12/29/17 12:45 01/28/18 12:44 01/01/18 08:39 Finasteride (Proscar) 5 mg DAILY ORAL 12/29/17 09:00 01/28/18 08:59 01/01/18 08:39 Heparin Sodium (Porcine) (Heparin 5000 units/ml) 5,000 units EVERY 12 HOURS SUBQ 12/29/17 21:00 01/28/18 20:59 01/01/18 08:41 Metoprolol Succinate (Toprol XL) 25 mg DAILY ORAL 12/29/17 09:00 01/28/18 08:59 01/01/18 08:40 Midodrine (Pro-Amatine) 10 mg THREE TIMES A DAY ORAL 12/29/17 09:00 01/28/18 08:59 01/01/18 08:39 Assessment/Plan Status: unchanged Assessment/Plan Dementia with behavioral disturbance agitation encephalopathy -ativan 1mg po q4hr prn -seroquel 50mg qhs Mihir Fowler M.D. Jan 01, 2018 12:55
[2018-01-01 16:00] VITALS: BP 113/51
[2018-01-01 20:00] VITALS: BP 112/62
[2018-01-02] VITALS: BP 131/67
[2018-01-02 04:00] VITALS: BP 146/73
[2018-01-02 07:08] LABS: BASOPHILS % (AUTO) 0.4 % (0.0-2.0); EOSINOPHILS % (AUTO) 1.3 % (0.0-3.0); HEMATOCRIT 29.2 % (42.0-52.0); HEMOGLOBIN 9.5 G/DL (14.2-18.0); LYMPHOCYTES % (AUTO) 12.3 % (20.0-45.0); MEAN CORPUSCULAR VOLUME 87 FL (80-99); MONOCYTES % (AUTO) 7.1 % (1.0-10.0); NEUTROPHILS % (AUTO) 78.9 % (45.0-75.0); PLATELET COUNT 300 K/UL (150-450); RED BLOOD COUNT 3.36 M/UL (4.70-6.10); RED CELL DISTRIBUTION WIDTH 14.6 % (11.6-14.8)
[2018-01-02 07:24] LABS: ALANINE AMINOTRANSFERASE 52 U/L (12-78); ALBUMIN 1.6 G/DL (3.4-5.0); ALBUMIN/GLOBULIN RATIO 0.3 (1.0-2.7); ALKALINE PHOSPHATASE 88 U/L (46-116); ANION GAP 8 mmol/L (5-15); ASPARTATE AMINO TRANSFERASE 37 U/L (15-37); BILIRUBIN,TOTAL 0.5 MG/DL (0.2-1.0); BLOOD UREA NITROGEN 17 mg/dL (7-18); CALCIUM 8.7 MG/DL (8.5-10.1); CARBON DIOXIDE 24 MMOL/L (21-32); CHLORIDE 109 MMOL/L (98-107); CREATININE 0.8 MG/DL (0.55-1.30); SODIUM 141 MMOL/L (136-145)
[2018-01-02 08:00] VITALS: BP 138/79
[2018-01-02] MEDS: Bicalutamide 50mg tab ORAL SCH (09:21)
[2018-01-02] MEDS: Midodrine 10mg tab ORAL SCH ×3 (09:21→17:55)
[2018-01-02] MEDS: Amiodarone 200mg tab ORAL SCH (09:21)
[2018-01-02] MEDS: Metoprolol Succinate XL 25mg tab ORAL SCH (09:22)
[2018-01-02] MEDS: Aspirin Baby 81mg ORAL SCH (09:22)
[2018-01-02] MEDS: D5 1/2NS 1,000 ML IV SCH (09:23)
[2018-01-02] MEDS: Heparin 5000 units/ml inj SUBQ SCH ×2 (09:24→21:52)
--- NOTE | 2018-01-02 09:37 | General Progress Note ---
Assessment/Plan Problem List: (1) Hx of gastrointestinal hemorrhage ICD Codes: Z87.19 - Personal history of other diseases of the digestive system SNOMED: 059853976 (2) Congestive cardiac failure ICD Codes: I50.9 - Heart failure, unspecified SNOMED: 41292394 (3) Failure to thrive SNOMED: 89224034 (4) Decubitus ulcer ICD Codes: L89.90 - Pressure ulcer of unspecified site, unspecified stage SNOMED: 411359625 (5) General weakness ICD Codes: R53.1 - Weakness SNOMED: 51286653 (6) Toxic metabolic encephalopathy ICD Codes: G92 - Toxic encephalopathy SNOMED: 418288657 (7) Acute renal failure ICD Codes: N17.9 - Acute kidney failure, unspecified SNOMED: 81766928 Status: stable, progressing Assessment/Plan encourage pos wound care follow labs abx dc ivf monitor h/h- suspect anemia due to hemodilution hospice eval at dtr request can dc once hospice arranged and family prepared to accept Subjective ROS Limited/Unobtainable: No Constitutional: Reports: malaise, weakness HEENT: Reports: no symptoms Cardiovascular: Reports: no symptoms Respiratory: Reports: no symptoms Gastrointestinal/Abdominal: Reports: no symptoms Genitourinary: Reports: no symptoms Neurologic/Psychiatric: Reports: pre-existing deficit Endocrine: Reports: no symptoms Hematologic/Lymphatic: Reports: anemia Allergies: Coded Allergies: No Known Allergies (Unverified , 05/04/12) All Systems: reviewed and negative except above Subjective no events. w/o complaints. eating well. getting wound care daily. denies pain. on ivf. anemia noted Objective Last 24 Hour Vital Signs Date Time Temp Pulse Resp B/P (MAP) Pulse Ox O2 Delivery O2 Flow Rate FiO2 01/02/18 09:22 20 138/79 01/02/18 09:22 20 138/79 01/02/18 08:00 97.7 20 20 138/79 100 97.7 01/02/18 04:00 97.9 83 22 146/73 98 97.9 01/02/18 00:00 98.8 80 20 131/67 97 Room Air 98.8 01/01/18 20:00 98.3 79 20 112/62 98 Room Air 98.3 01/01/18 17:47 75 117/65 01/01/18 16:00 98.1 77 20 113/51 92 98.1 01/01/18 11:52 97.6 74 18 133/55 97 Room Air 97.6 Intake and Output 01/01/18 01/02/18 19:00 07:00 Intake Total 1185 ml 850 ml Output Total 750 ml 300 ml Balance 435 ml 550 ml Intake Oral 360 ml 100 ml IV Total 825 ml 750 ml Output Urine Total 750 ml 300 ml Laboratory Tests 01/02/18 05:45: White Blood Count 10.0, Red Blood Count 3.36L, Hemoglobin 9.5L, Hematocrit 29.2L , Mean Corpuscular Volume 87, Mean Corpuscular Hemoglobin 28.1, Mean Corpuscular Hemoglobin Concent 32.4, Red Cell Distribution Width 14.6, Platelet Count 300, Mean Platelet Volume 6.2L, Neutrophils (%) (Auto) 78.9H, Lymphocytes (%) (Auto) 12.3L, Monocytes (%) (Auto) 7.1, Eosinophils (%) (Auto) 1.3, Basophils (%) (Auto) 0.4, Sodium Level 141, Potassium Level 4.0, Chloride Level 109H, Carbon Dioxide Level 24, Anion Gap 8, Blood Urea Nitrogen 17, Creatinine 0.8, Estimat Glomerular Filtration Rate , Glucose Level 115H, Calcium Level 8.7 , Total Bilirubin 0.5, Aspartate Amino Transf (AST/SGOT) 37, Alanine Aminotransferase (ALT/SGPT) 52, Alkaline Phosphatase 88, Total Protein 6.4, Albumin 1.6L, Globulin 4.8, Albumin/Globulin Ratio 0.3L Height (Feet): 6 Height (Inches): 1.00 Weight (Pounds): 145 Objective General Appearance: WD/WN, alert Neck: supple Cardiovascular: regular rhythm Respiratory/Chest: chest wall non-tender, lungs clear, normal breath sounds Abdomen: normal bowel sounds, non tender, soft, no organomegaly Edema: no edema noted Arm (L), no edema noted Arm (R), no edema noted Leg (L), no edema noted Leg (R), no edema noted Pedal (L), no edema noted Pedal (R), no edema noted Generalized Skin: other - multiple wounds YOU ROMO Jan 02, 2018 09:37
[2018-01-02] MEDS ORDERED: Milk of Magnesia 30ml Ud ORAL PRN (10:00)
[2018-01-02] MEDS ORDERED: Docusate 100mg cap ORAL SCH (10:00)
[2018-01-02 12:00] VITALS: BP 126/75
[2018-01-02] MEDS: Docusate 100mg/10ml Liq NG SCH ×2 (13:23→17:55)
[2018-01-02 16:00] VITALS: BP 136/60
[2018-01-02] MEDS: Norco 5mg/325mg tab ORAL PRN (17:14)
[2018-01-02] MEDS: Piperacillin/Tazobactam 3.375 GM in NS 110 ML IVPB SCH (19:56)
[2018-01-02 20:00] VITALS: BP 108/58
--- NOTE | 2018-01-02 21:00 | Progress Note ---
DATE: 01/02/2018 SUBJECTIVE: The patient is calmer, more cooperative. No behavior issues. The patient is still yelling at times, specifically when they start trying to clean the patient. MENTAL STATUS EXAMINATION: The patient is confused and disoriented. There is psychomotor agitation. Mood is neutral during the evaluation, tends to get agitated during the day. Affect is flat, constricted with mood. Thought process, there is a paucity of thought content. Thought content, positive for delusions. Cognition is impaired. Insight and judgment non-existent. ASSESSMENT: AXIS I Dementia with behavior disturbance and encephalopathy. PLAN: 1. The patient will be continued on Seroquel. 2. We will continue to follow and readjust the medications. Mihir Fowler M.D. DR: MAE JOB#: [id number] CC:
[2018-01-02 21:26] LABS: BASOPHILS % (AUTO) 0.2 % (0.0-2.0); EOSINOPHILS % (AUTO) 0.5 % (0.0-3.0); HEMOGLOBIN 9.2 G/DL (14.2-18.0); LYMPHOCYTES % (AUTO) 9.9 % (20.0-45.0); MEAN CORPUSCULAR VOLUME 86 FL (80-99); MONOCYTES % (AUTO) 7.1 % (1.0-10.0); NEUTROPHILS % (AUTO) 82.3 % (45.0-75.0); PLATELET COUNT 316 K/UL (150-450); RED BLOOD COUNT 3.36 M/UL (4.70-6.10); RED CELL DISTRIBUTION WIDTH 14.9 % (11.6-14.8); WHITE BLOOD COUNT 12.1 K/UL (4.8-10.8)
[2018-01-02] MEDS: Metoprolol Tartrate 12.5mg TAB ORAL SCH (21:48)
[2018-01-02] MEDS: Vancomycin 1250mg/D5W 250ml 250 ML IVPB SCH (22:48)
[2018-01-03] VITALS: BP 112/58
[2018-01-03 04:20] VITALS: BP 129/95
[2018-01-03] MEDS: Piperacillin/Tazobactam 3.375 GM in NS 110 ML IVPB SCH ×3 (05:46→21:57)
[2018-01-03 07:05] LABS: BASOPHILS % (AUTO) 0.5 % (0.0-2.0); HEMATOCRIT 30.3 % (42.0-52.0); HEMOGLOBIN 9.8 G/DL (14.2-18.0); LYMPHOCYTES % (AUTO) 11.7 % (20.0-45.0); MEAN CORPUSCULAR VOLUME 87 FL (80-99); MONOCYTES % (AUTO) 7.1 % (1.0-10.0); NEUTROPHILS % (AUTO) 79.8 % (45.0-75.0); PLATELET COUNT 318 K/UL (150-450); RED BLOOD COUNT 3.48 M/UL (4.70-6.10); WHITE BLOOD COUNT 11.1 K/UL (4.8-10.8)
[2018-01-03 07:24] LABS: ALANINE AMINOTRANSFERASE 48 U/L (12-78); ALBUMIN 1.6 G/DL (3.4-5.0); ALBUMIN/GLOBULIN RATIO 0.3 (1.0-2.7); ALKALINE PHOSPHATASE 105 U/L (46-116); ANION GAP 8 mmol/L (5-15); ASPARTATE AMINO TRANSFERASE 36 U/L (15-37); BILIRUBIN,TOTAL 0.8 MG/DL (0.2-1.0); BLOOD UREA NITROGEN 15 mg/dL (7-18); CALCIUM 8.9 MG/DL (8.5-10.1); CARBON DIOXIDE 25 MMOL/L (21-32); CHLORIDE 107 MMOL/L (98-107); POTASSIUM 4.1 MMOL/L (3.5-5.1); SODIUM 140 MMOL/L (136-145)
[2018-01-03 08:00] VITALS: BP 127/63
--- NOTE | 2018-01-03 09:22 | General Progress Note ---
Assessment/Plan Problem List: (1) Hx of gastrointestinal hemorrhage ICD Codes: Z87.19 - Personal history of other diseases of the digestive system SNOMED: 954424621 (2) Congestive cardiac failure ICD Codes: I50.9 - Heart failure, unspecified SNOMED: 35609492 (3) Failure to thrive SNOMED: 29138190 (4) Decubitus ulcer ICD Codes: L89.90 - Pressure ulcer of unspecified site, unspecified stage SNOMED: 207116199 (5) General weakness ICD Codes: R53.1 - Weakness SNOMED: 80645746 (6) Toxic metabolic encephalopathy ICD Codes: G92 - Toxic encephalopathy SNOMED: 947741956 (7) Acute renal failure ICD Codes: N17.9 - Acute kidney failure, unspecified SNOMED: 91933117 Status: stable Assessment/Plan encourage pos wound care follow labs abx dc ivf abx follow up cultures monitor h/h- suspect anemia due to hemodilution hospice eval at dtr request can dc once hospice arranged and family prepared to accept Subjective ROS Limited/Unobtainable: No Constitutional: Reports: fever HEENT: Reports: no symptoms Cardiovascular: Reports: no symptoms Respiratory: Reports: no symptoms Gastrointestinal/Abdominal: Reports: no symptoms Genitourinary: Reports: no symptoms Neurologic/Psychiatric: Reports: pre-existing deficit Endocrine: Reports: no symptoms Hematologic/Lymphatic: Reports: no symptoms Allergies: Coded Allergies: No Known Allergies (Unverified , 05/04/12) All Systems: reviewed and negative except above Subjective no events. weak. + fever. cultured. abx ordered Objective Last 24 Hour Vital Signs Date Time Temp Pulse Resp B/P (MAP) Pulse Ox O2 Delivery O2 Flow Rate FiO2 01/03/18 08:00 98.2 83 18 127/63 98 Room Air 98.2 01/03/18 04:20 98.2 20 129/95 96 Room Air 98.2 01/03/18 00:00 98.5 83 20 112/58 93 Room Air 98.5 01/03/18 00:00 Room Air 01/02/18 21:48 81 108/58 01/02/18 20:00 99.8 81 20 108/58 97 Room Air 99.8 01/02/18 20:00 Room Air 01/02/18 18:08 97.5 97.5 01/02/18 17:55 93 126/75 01/02/18 16:00 97.5 82 20 136/60 97 97.5 01/02/18 12:00 98.1 93 20 126/75 94 98.1 01/02/18 09:22 20 138/79 01/02/18 09:22 20 138/79 Intake and Output 01/02/18 01/03/18 19:00 07:00 Intake Total 360 ml 627.500 ml Output Total 700 ml 600 ml Balance -340 ml 27.500 ml Intake Oral 360 ml 240 ml IV Total 387.500 ml Output Urine Total 700 ml 600 ml Laboratory Tests 01/02/18 21:00: White Blood Count 12.1H, Red Blood Count 3.36L, Hemoglobin 9.2L, Hematocrit 29.0L, Mean Corpuscular Volume 86, Mean Corpuscular Hemoglobin 27.4, Mean Corpuscular Hemoglobin Concent 31.8L, Red Cell Distribution Width 14.9H, Platelet Count 316, Mean Platelet Volume 6.3L, Neutrophils (%) (Auto) 82.3H, Lymphocytes (%) (Auto) 9.9L, Monocytes (%) (Auto) 7.1, Eosinophils (%) (Auto) 0.5, Basophils (%) (Auto) 0.2 01/03/18 05:15: White Blood Count 11.1H, Red Blood Count 3.48L, Hemoglobin 9.8L, Hematocrit 30.3L, Mean Corpuscular Volume 87, Mean Corpuscular Hemoglobin 28.1, Mean Corpuscular Hemoglobin Concent 32.2, Red Cell Distribution Width 15.0H, Platelet Count 318, Mean Platelet Volume 6.1L, Neutrophils (%) (Auto) 79.8H, Lymphocytes (%) (Auto) 11.7L, Monocytes (%) (Auto) 7.1, Eosinophils (%) (Auto) 1.0, Basophils (%) (Auto) 0.5, Sodium Level 140, Potassium Level 4.1, Chloride Level 107, Carbon Dioxide Level 25, Anion Gap 8, Blood Urea Nitrogen 15, Creatinine 1.0, Estimat Glomerular Filtration Rate , Glucose Level 96, Calcium Level 8.9, Total Bilirubin 0.8, Aspartate Amino Transf (AST/SGOT) 36, Alanine Aminotransferase (ALT/SGPT) 48, Alkaline Phosphatase 105, Total Protein 6.6, Albumin 1.6L, Globulin 5.0, Albumin/Globulin Ratio 0.3L Height (Feet): 6 Height (Inches): 1.00 Weight (Pounds): 145 Objective General Appearance: WD/WN, alert Neck: supple Cardiovascular: regular rhythm Respiratory/Chest: chest wall non-tender, lungs clear, normal breath sounds Abdomen: normal bowel sounds, non tender, soft, no organomegaly Edema: no edema noted Arm (L), no edema noted Arm (R), no edema noted Leg (L), no edema noted Leg (R), no edema noted Pedal (L), no edema noted Pedal (R), no edema noted Generalized Skin: other - multiple wounds YOU ROMO Jan 03, 2018 09:22
[2018-01-03] MEDS: Docusate 100mg/10ml Liq NG SCH ×3 (10:12→17:38)
[2018-01-03] MEDS: Midodrine 10mg tab ORAL SCH ×3 (10:13→17:38)
[2018-01-03] MEDS: Metoprolol Tartrate 12.5mg TAB ORAL SCH ×2 (10:13→20:32)
[2018-01-03] MEDS: Amiodarone 200mg tab ORAL SCH (10:13)
[2018-01-03] MEDS: Aspirin Baby 81mg ORAL SCH (10:13)
[2018-01-03] MEDS: Heparin 5000 units/ml inj SUBQ SCH ×2 (10:15→20:33)
--- NOTE | 2018-01-03 11:07 | Diagnostic Imaging Report ---
Indication: Cough Comparison: 12/28/2017 A single view chest radiograph was obtained. Findings: The lungs are clear. Left hemidiaphragm is slightly elevated. There is a pacemaker on the left. Bones are osteopenic. IMPRESSION: No acute disease
[2018-01-03 12:00] VITALS: BP 117/51
[2018-01-03 16:00] VITALS: BP 118/55
[2018-01-03 20:00] VITALS: BP 124/59
[2018-01-03] MEDS: Vancomycin 1250mg/D5W 250ml 250 ML IVPB SCH (20:13)
--- NOTE | 2018-01-03 23:00 | Progress Note ---
SUBJECTIVE: The patient is calmer and still not able to be engaged during the evaluation. Episodes of yelling decreased. Has poor cognition and is confused. MENTAL STATUS EXAMINATION: The patient is confused and disoriented. Mood is neutral today, at times agitated. Affect is constricted, congruent with mood. Thought process is concrete. Thought content, no suicidal or homicidal ideations. ASSESSMENT: 1. Dementia with behavior disturbance. 2. Encephalopathy. PLAN: We will continue the current medication. Provide the patient with supportive therapy and reality orientation. We will continue to follow and readjust the medications. Mihir Fowler M.D. DR: DESTINEE JOB#: [id number] CC:
[2018-01-04] VITALS: BP 139/76
[2018-01-04 04:00] VITALS: BP 128/74
[2018-01-04] MEDS: Piperacillin/Tazobactam 3.375 GM in NS 110 ML IVPB SCH (06:09)
[2018-01-04 08:00] VITALS: BP 108/60
[2018-01-04] MEDS: Metoprolol Tartrate 12.5mg TAB ORAL SCH (09:00)
[2018-01-04] MEDS: Midodrine 10mg tab ORAL SCH (09:23)
[2018-01-04] MEDS: Docusate 100mg/10ml Liq NG SCH (09:23)
[2018-01-04] MEDS: Amiodarone 200mg tab ORAL SCH (09:23)
[2018-01-04] MEDS: Aspirin Baby 81mg ORAL SCH (09:23)
[2018-01-04] MEDS: Heparin 5000 units/ml inj SUBQ SCH (09:24)
[2018-01-04 12:00] VITALS: BP 123/56
[2018-01-04] MEDS ORDERED: D5 1/2NS 1000ml IV ONE (12:15)
[2018-01-04] MEDS ORDERED: Tubing IV Secondary IV ONE (12:15)
--- NOTE | 2018-01-05 03:15 | Discharge Summary ---
DATE OF ADMISSION: 12/28/2017 DATE OF DISCHARGE: 01/04/2018 ADMISSION DIAGNOSES: 1. Multiple decubitus ulcers. 2. Recent hip fracture. 3. Dementia. 4. Hypertension. 5. Orthostatic hypotension. 6. History of conduction system disease, status post pacemaker. 7. Metastatic prostate cancer. DISCHARGE DIAGNOSES: 1. Multiple decubitus ulcers. 2. Recent hip fracture. 3. Dementia. 4. Hypertension. 5. Orthostatic hypotension. 6. History of conduction system disease, status post pacemaker. 7. Metastatic prostate cancer. HOSPITAL COURSE: The patient is an unfortunate male with history of hypertension, stroke, dementia, metastatic prostate cancer, and recent hip fracture, who was admitted with multiple community-acquired pressure ulcers. The patient had been cared for at home after a hip fracture. It was recommended prior to him going home that he go to a skilled nursing, but family declined. The patient developed multiple pressure ulcers at home and was readmitted. He was seen by Plastic Surgery, no surgical debridement was recommended at that time. After discussion with family members and his power of contracts attorney, they elected to make the patient hospice and comfort measures only. He was discharged home on hospice care. DISCHARGE MEDICATIONS: Please see discharge medication list for discharge medications. DIET: Regular diet. ACTIVITY: Ad-shama. FOLLOWUP: The patient will be followed up by the hospice service on the day of discharge. Dennis Burger M.D. DR: Ramana JOB#: [id number] CC:
--- NOTE | 2018-01-06 21:38 | General Progress Note ---
Assessment/Plan Status: stable Assessment/Plan 1. Dementia with behavior disturbance. 2. Encephalopathy. PLAN: We will continue the current medication. Provide the patient with supportive therapy and reality orientation. We will continue to follow and readjust the medications. Subjective Date patient seen: Jan 04, 2018 Neurologic/Psychiatric: Reports: anxiety, depressed, emotional problems Allergies: Coded Allergies: No Known Allergies (Unverified , 05/04/12) Objective Height (Feet): 6 Height (Inches): 1.00 Weight (Pounds): 145 General Appearance: no apparent distress, alert, confused, agitated Neurologic: alert, disoriented, depressed affect Mihir Fowler M.D. Jan 06, 2018 21:38
== END 2018-01-04 12:16 | disposition hospice, home (50) | DRG 592 ==
LOC: EDBD 14:13 → EMR 14:45 → 4E 15:58 → EDBEDREQ 17:41 → 4E 12-29 15:55
DX: L89.44 Pressure ulcer of contiguous site of back, buttock and hip, stage 4 (principal); N17.9 Acute kidney failure, unspecified; G92 Toxic encephalopathy; L89.150 Pressure ulcer of sacral region, unstageable; L89.100 Pressure ulcer of unspecified part of back, unstageable; I11.0 Hypertensive heart disease with heart failure; C79.9 Secondary malignant neoplasm of unspecified site; I50.9 Heart failure, unspecified; F03.91 Unspecified dementia, unspecified severity, with behavioral disturbance; C61 Malignant neoplasm of prostate; Z51.5 Encounter for palliative care; R53.1 Weakness; R62.7 Adult failure to thrive; I95.1 Orthostatic hypotension; Z95.0 Presence of cardiac pacemaker; L89.890 Pressure ulcer of other site, unstageable; L89.520 Pressure ulcer of left ankle, unstageable; L89.510 Pressure ulcer of right ankle, unstageable; L89.322 Pressure ulcer of left buttock, stage 2; L89.312 Pressure ulcer of right buttock, stage 2
CPT/HCPCS: 36415; 71045; 80053; 82550; 82553; 83605; 84134; 84484; 85007; 85025; 87040; 87070; 87081; 87086; 87181; 87205; 93005; 99285